=== PATIENT | female | born 1945 | race Caucasian/White ===

== ENCOUNTER → 2016-02-23 | Outpatient (CLI) | payer MEDICARE, OTHER ==
--- NOTE | 2016-02-23 10:28 | REPMRS ---
Patient History The patient states she had a clinical breast exam in 02/26 Patient is postmenopausal, has history of skin cancer at age 53, and is nulliparous. Family history of premenopausal breast cancer in maternal grandmother at age 50 or over and prostate cancer in brother at age 50 or over. Benign excisional biopsy of the left breast, 1999. Digital Woman Screen Mammo: February 23, 2016 - Exam #: [id number] Bilateral CC and MLO view(s) were taken. Technologist: Radha Montgomery, Technologist Prior study comparison: February 21, 2015, digital woman screen mammo performed at [facility]. March 04, 2014, digital woman screen mammo performed at [facility] [employer] [facility]. January 26, 2013, digital woman screen mammo performed at [facility] [employer] [facility]. FINDINGS: The breast tissue is heterogeneously dense. This may lower the sensitivity of mammography. There is a moderate amount of heterogeneously dense fibroglandular tissue which is fairly symmetric. There is no interval development of dominant mass, architectural distortion, or clustered microcalcification typical of malignancy. There has been no change in the appearance of the mammogram from the prior studies. ASSESSMENT: BI-RADS/ACR category 1 mammogram. Negative. Recommendation Routine screening mammogram of both breasts in 1 year (for women over age 40). This mammogram was interpreted with the aid of an FDA-approved computer-aided dectection system. Electronically Signed By: Anuj Nichols MD 02/23/16 [id number]
== END ==
LOC: M WHC 08:25
PROVIDERS: ATTEND Nurse Practitioner Family
DX: Z12.31 Encounter for screening mammogram for malignant neoplasm of breast (principal); Z78.0 Asymptomatic menopausal state

== ENCOUNTER → 2016-11-01 | Outpatient (REF) | payer MEDICARE, OTHER | LOC: M LAB REF 12:40 | PROVIDERS: ATTEND Nurse Practitioner Family | DX: R51 Headache (principal) ==

== ENCOUNTER → 2017-03-15 | Outpatient (CLI) | payer MEDICARE, OTHER | LOC: M WHC 10:57 | DX: Z12.31 Encounter for screening mammogram for malignant neoplasm of breast (principal); Z13.820 Encounter for screening for osteoporosis; M85.9 Disorder of bone density and structure, unspecified; Z78.0 Asymptomatic menopausal state | CPT/HCPCS: 77067 ==

== ENCOUNTER 2017-05-29 07:41 | Day surgery (SDC) | payer MEDICARE, OTHER ==
[2017-05-29] MEDS: NS 1,000 ML IV (08:29)
[2017-05-29] MEDS ORDERED: PROPOFOL 200 MG/20 ML VIAL As Ordered (08:55)
[2017-05-29] MEDS ORDERED: LIDOCAINE 2% INJ 100 MG/5 ML SDV (FOR ANES.) As Ordered (09:14)
== END 2017-05-29 10:12 | disposition home or self-care (01) ==
LOC: M OPP 07:41
DX: Z12.11 Encounter for screening for malignant neoplasm of colon (principal); K64.0 First degree hemorrhoids; K57.30 Diverticulosis of large intestine without perforation or abscess without bleeding; E03.9 Hypothyroidism, unspecified; Z78.0 Asymptomatic menopausal state; Z79.82 Long term (current) use of aspirin; Z79.899 Other long term (current) drug therapy; Z80.42 Family history of malignant neoplasm of prostate
CPT/HCPCS: G0121

== ENCOUNTER → 2018-03-24 | Outpatient (CLI) | payer MEDICARE, OTHER ==
[~2018-03-24] MED LIST: ASPI1TAB PO; LEVO100T5 PO
--- NOTE | 2018-03-24 12:12 | REPMRS ---
Patient History The patient states she had a clinical breast exam in 09/28 Patient is postmenopausal, has history of skin cancer at age 53, and is nulliparous. Family history of premenopausal breast cancer at age 50 or over in maternal grandmother, prostate cancer at age 50 or over in brother. Benign excisional biopsy of the left breast, 2018. Benign excisional biopsy of the left breast, 1999. 3D TOMOSYNTHESIS WAS PERFORMED. Digital Woman Screen Mammo: March 24, 2018 - Exam #: [id number] Bilateral CC and MLO view(s) were taken. Technologist: Radha Montgomery, Technologist Prior study comparison: March 15, 2017, digital woman screen mammo performed at [facility] [employer] [facility]. February 23, 2016, digital woman screen mammo performed at [facility] [employer] [facility]. FINDINGS: The breast tissue is heterogeneously dense. This may lower the sensitivity of mammography. There has been no change in the appearance of the mammogram from the prior studies. There is a moderate amount of residual fibroglandular tissue which is fairly symmetric. There is no interval development of dominant mass, areas of architectural distortion, or clustered microcalcification typical of malignancy. Assessment: BI-RADS/ACR category 1 mammogram. Negative Mammogram. Recommendation Routine screening mammogram in 1 year (for women over age 40). This mammogram was interpreted with the aid of an FDA-approved computer-aided dectection system. Electronically Signed By: Fredy Spencer MD 03/24/18 [id number]
== END ==
LOC: M WHC 11:01
PROVIDERS: ATTEND Nurse Practitioner Family
DX: Z12.31 Encounter for screening mammogram for malignant neoplasm of breast (principal); Z80.3 Family history of malignant neoplasm of breast; Z85.828 Personal history of other malignant neoplasm of skin

== ENCOUNTER 2019-01-26 14:19 | Inpatient (IN) | payer MEDICARE, OTHER ==
[~2019-01-26] VITALS: Ht 162.6 cm; Wt 67.0 kg
[~2019-01-26 14:19] MED LIST changes: -VIAC1CHW PO; -VITATAB26 PO
[2019-01-26] MEDS ORDERED: METOCLOPRAMIDE INJ 10MG/2ML VIAL (J2765) IV ONE (15:00)
[2019-01-26] MEDS ORDERED: NS 500 ML IV ONE (15:00)
[2019-01-26 15:19] LABS: HEMATOCRIT 46.6 % (36.0-47.0); HEMOGLOBIN 14.3 g/dl (12.0-15.5); MEAN CORPUSCULAR HEMOGLOBIN 26.7 pg (27.0-33.0); MEAN CORPUSCULAR HGB CONC 30.7 g/dl (32.0-36.5); MEAN CORPUSCULAR VOLUME 87.1 fl (80.0-96.0); PLATELET COUNT, AUTOMATED 518 10^3/uL (150-450); RED BLOOD COUNT 5.35 10^6/uL (4.00-5.40)
[2019-01-26] MEDS: GASTROGRAFIN SOLUTION 30ML PO SCH ×2 (15:21→16:06)
[2019-01-26 15:42] LABS: ALBUMIN 3.5 GM/DL (3.2-5.2); ALT/SGPT 15 U/L (12-78); BILIRUBIN,DIRECT 0.2 MG/DL (0.0-0.2); BILIRUBIN,TOTAL 0.6 MG/DL (0.2-1.0); CK-MB VALUE MASS 3.2 NG/ML (<3.6); CPK CREATINE PHOSPHOKINASE 97 U/L (26-192); LIPASE 65 U/L (73-393); TOTAL PROTEIN 7.4 GM/DL (6.4-8.2); TROPONIN I < 0.02 NG/ML (< 0.10)
[2019-01-26 16:00] LABS: LYMPHOCYTES 2 % (16-44); METAMYELOCYTES 1 % (0-0); MONOCYTES 7 % (0-5); NEUTROPHILS 70 % (28-66); PLATELET ESTIMATE INCREASED (NORMAL)
[2019-01-26] MEDS ORDERED: ISOVUE-370 76% 100ML VIAL (Q9967) As Ordered ONE (16:49)
[2019-01-26] MEDS ORDERED: PIPERACILLIN/TAZOBACTAM SOD 3.375 GM in D5W MINI-BAG PLUS 50 ML IV ONE (17:45)
--- NOTE | 2019-01-26 17:53 | REPVR ---
PROCEDURE INFORMATION: Exam: CT Abdomen And Pelvis With Contrast Exam date and time: 01/26/2019 2:47 PM Age: 73 years old Clinical history: Bloating; Additional info: Abdominal bloating; R/O obstruction TECHNIQUE: Imaging protocol: Computed tomography of the abdomen and pelvis with intravenous contrast. Radiation optimization: All CT scans at this facility use at least one of these dose optimization techniques: automated exposure control; mA and/or kV adjustment per patient size (includes targeted exams where dose is matched to clinical indication); or iterative reconstruction. Contrast material: Isovue 370; Contrast volume: 100 ml; Contrast route: IV; Other contrast: Route: Oral; COMPARISON: CR ABDOMEN 1 VIEW (KUB) 01/26/2019 1:43 PM FINDINGS: Mediastinum: A small sliding hiatal hernia is present above the level of the diaphragm. Liver: Nonspecific 8.8 mm LEFT lobe hepatic hypodensity. 5.8 mm RIGHT lobe hepatic probable cyst. Gallbladder and bile ducts: Normal. No calcified stones. No ductal dilation. Pancreas: Normal. No ductal dilation. Spleen: Normal. No splenomegaly. Adrenals: Normal. No mass. Kidneys and ureters: LEFT renal parapelvic cysts measuring up to 2 cm. Stomach and bowel: Moderate distal sigmoid and rectal wall thickening and pericolonic edema. Gaseous distention of the proximal sigmoid, and abdominal colon with increased intraluminal fluid of the ascending colon. Mild non-specific RIGHT pelvic small bowel wall thickening (series 202, images 57-29). Sigmoid colonic diverticula are present without evidence of diverticulitis. Appendix: No evidence of appendicitis. Intraperitoneal space: Unremarkable. No free air. No significant fluid collection. Vasculature: Moderate stenosis proximal SMA. Patent VISH. Moderate aortic atherosclerotic calcification without aneurysm. The iliac arteries show moderate bilateral atherosclerotic calcifications without evidence of aneurysm. Lymph nodes: Unremarkable. No enlarged lymph nodes. Bladder: Unremarkable as visualized. Reproductive: Thin-walled 5 cm LEFT adnexal cyst. Calcified RIGHT uterine leiomyomata. Bones/joints: L4-5 degenerative disc disease with mild spondylosis. LEFT lower lumbar facet primary osteoarthritis. Soft tissues: Unremarkable. IMPRESSION: 1. Moderate distal sigmoid and rectal wall thickening and pericolonic edema. The finding is consistent with nonspecific colitis. Clinical correlation to determine the specific etiology is recommended. 2. Gaseous distention of the proximal sigmoid, and abdominal colon with increased intraluminal fluid of the ascending colon. Functional colonic obstruction difficult to exclude. 3. Mild non-specific RIGHT pelvic small bowel wall thickening. Consider infectious/inflammatory and ischemic etiologies. 4. Diverticulosis. 5. LEFT adnexal cyst. Pelvic sonography recommended for further evaluation. 6. Calcified RIGHT uterine leiomyomata. 7. Nonspecific small LEFT lobe hepatic hypodensity. Comparison with prior studies recommended, if available. Otherwise followup may be helpful. 8. RIGHT lobe hepatic probable cyst. 9. Small hiatal hernia. 10. LEFT renal parapelvic cysts. Electronically signed by: Chico Brewster On 01/26/2019 17:52:37 PM
[2019-01-26] MEDS ORDERED: ONDANSETRON 4MG/2ML VIAL (J2405) IV ONE (19:15)
[2019-01-26] MEDS ORDERED: VIAC1CHW PO (23:43)
[2019-01-26] MEDS ORDERED: VITATAB26 PO (23:43)
[2019-01-26] MEDS ORDERED: GLUCOSE 4 GM CHEW TABLET PO PRN (23:45)
[2019-01-26] MEDS ORDERED: GLUCAGON FOR INJ 1 MG VIAL (J1610) SC PRN (23:45)
[2019-01-26] MEDS ORDERED: DEXTROSE 50% 50 ML SYRINGE IV PRN (23:45)
[2019-01-27 00:31] VITALS: BP 120/76
[2019-01-27 00:32] LABS: BLOOD UREA NITROGEN 31 MG/DL (7-18); C REACTIVE PROTEIN QUANTITATIV 5.86 MG/DL (0.00-0.30); CALCIUM LEVEL 9.2 MG/DL (8.8-10.2); CARBON DIOXIDE LEVEL 21 MEQ/L (21-32); CHLORIDE LEVEL 99 MEQ/L (98-107); CREATININE FOR GFR 1.33 MG/DL (0.55-1.30); GLOMERULAR FILTRATION RATE 41.4 (>39); GLUCOSE, FASTING 179 MG/DL (70-100); POTASSIUM SERUM 4.1 MEQ/L (3.5-5.1); SODIUM LEVEL 136 MEQ/L (136-145)
--- NOTE | 2019-01-27 01:00 | HPEPDOC ---
[facility] Medical History & Physical Date of Admission Jan 26, 2019 Date of Service: Jan 26, 2019 Primary Care Physician: Jennie Haider Attending Physician: MARLA ESPARZA MD History and Physical CHIEF COMPLAINT: Abdominal pain/distention HISTORY OF PRESENT ILLNESS: Patient is a 73-year-old female with past medical history significant only for hypothyroidism who presented to [facility] emergency department with a complaint of abdominal pain and distention. She states that on Saturday of last week she had developed some abdominal pain and a "gassy" feeling in her stomach. At that she did not do much and felt that the pain would go away on its own. However, on Saturday she noticed increasing pain in her abdomen. She stated due to the pain she was having a decrease in her appetite. On Saturday the patient stated that she developed some nausea as well as worsening of her abdominal pain. She states that the pain continued to get worse and she was unable to eat anything. She admits to developing vomiting and was unable to hold down any food or water. Patient presented to the urgent care due to the pain and was instructed to go to the emergency department. She admitted to difficulty with bowel movements since Saturday and stated that her bowel movements have mostly been liquid. She denies any blood in her stool. The patient does admit to two other episodes of abdominal pain and distension. Her first episode was 6-8 weeks ago and lasted a few days. She states that she developed pain some nausea at the time. This lasted a few days before completely resolving. Her second episode was 3-4 weeks ago and once again resolved on its own. She states that this time her pain is worse and has lasted longer than usual which has prompted her to find out what is wrong. In the emergency room, the patient was found to be vitally stable. She received an abdominal/pelvis CT which revealed "moderate distal sigmoid and rectal wall thickening and pericolonic edema; gaseous distention of the proximal sigmoid, and abdominal colon with increased intraluminal fluid of the ascending colon". The patient has a mild lactic acidosis of 3.4 and was given a 500ml NS bolus with a repeat lactic acid of 1.5. Hospitalist service was contacted for further evaluation and management of the patient REVIEW OF SYSTEMS: CONSTITUTIONAL: Denies fevers, chills, nightsweats, unintentional weight loss or weight gain. Admits to a decreased appetite. HEENT: Denies changes in vision. Denies cough, denies difficulty swallowing or choking. Denies pain with swallowing. Denies any neck swelling CARDIOVASCULAR:. Denies chest pain, palpitations or feelings of heart racing. Denies any swelling in the legs. Denies shortness of breath while lying flat. Denies any shortness of breath or chest pain with exertion.. RESPIRATORY: Denies shortness of breath, denies cough. Denies wheezing, denies sputum production. GASTROINTESTINAL: Admits to abdominal pain and distention. Admits to watery bowel movements and constipation. Denies any blood in stool. Admits to nausea and vomiting. GENITOURINARY: Denies increased frequency, urgency or dysuria. SKIN:. Denies any skin lesions or ulcerations. Denies any pruritus. MUSCULOSKELETAL:. Denies any muscle pain or weakness. NEUROLOGICAL:. Denies any changes or gait, speech or vision. PSYCHIATRIC:. Denies any feelings of depression or anxiety. ENDOCRINE:. Denies any cold intolerance or heat intolerance. Denies any history of diabetes. Admits to a history of hypothyroidism HEMATOLOGIC/LYMPHATIC:. Denies any history of easy bruising or bleeding. PAST MEDICAL HISTORY: 1. Hypothyroidism PAST SURGICAL HISTORY: 1. Appendectomy 2. Fertility procedure 3. Left foot bunion removal SOCIAL HISTORY: Patient is and lives at home with her . She is a nonsmoker and denies any tobacco use now or in the past. She states she has a glass of wine every night. She denies any history of IV or illicit drug use. She admits to recent travel to [facility] where she stayed for 3 weeks. FAMILY HISTORY: Patients father and mother have . Her mother at the ago of 91 from natural causes. She has two brothers who carry the diagnosis of diabetes mellitus type 2 and hypertension ALLERGIES: Please see below. HOME MEDICATIONS: Please see below. PHYSICAL EXAMINATION: VITAL SIGNS: Temperature 97.2, pulse 95, respiratory rate 18, blood pressure 125/59, pulse oximetry 98% on room air. GENERAL APPEARANCE: Patient is awake, alert and oriented. She does not appear in acute distress. She is lying in bed comfortably. She is conversive, although hard of hearing. HEENT: Atraumatic, normocephalic. Eyes are nonicteric. Trachea is midline. Dentition is fair. Mucous membranes are pink and slightly dry. No palpable cervical, supraclavicular or axillary lymphadenopathy. CARDIOVASCULAR:. There is normal S1, S2, slightly tachycardic rate with a regular rhythm. No clicks, rubs or murmurs auscultated. . There is no displace ment of the PMI., No jugular venous distention noted. LUNGS: Patient has clear vesicular breath sounds bilaterally with good respiratory effort. There are no wheezes, rhonchi or rales. There is symmetric chest expansion ABDOMEN: Patient's abdomen is soft. There is mild tenderness in the left lower q uadrant. There is no rebound tenderness or guarding. There is no bruising or palpable masses. Patient has hyperactive bowel sounds. MUSCULOSKELETAL: 5 out of 5 muscle strength in the upper and lower extremities bilaterally. EXTREMITIES: No edema, 2+ posterior tibial and radial pulses bilaterally. NEUROLOGICAL:. No focal neurological deficits. PSYCHIATRIC:. Mood and affect appear appropriate. LABORATORY DATA: See below. IMAGING: "Exam: CT Abdomen And Pelvis With Contrast Exam date and time: 01/26/2019 2:47 PM Age: 73 years old Clinical history: Bloating; Additional info: Abdominal bloating; R/O obstruction... COMPARISON: CR ABDOMEN 1 VIEW (KUB) 01/26/2019 1:43 PM FINDINGS: Mediastinum: A small sliding hiatal hernia is present above the level of the diaphragm. Liver: Nonspecific 8.8 mm LEFT lobe hepatic hypodensity. 5.8 mm RIGHT lobe hepatic probable cyst. Gallbladder and bile ducts: Normal. No calcified stones. No ductal dilation. Pancreas: Normal. No ductal dilation. Spleen: Normal. No splenomegaly. Adrenals: Normal. No mass. Kidneys and ureters: LEFT renal parapelvic cysts measuring up to 2 cm. Stomach and bowel: Moderate distal sigmoid and rectal wall thickening and pericolonic edema. Gaseous distention of the proximal sigmoid, and abdominal colon with increased intraluminal fluid of the ascending colon. Mild non- specific RIGHT pelvic small bowel wall thickening (series 202, images 57-29). Sigmoid colonic diverticula are present without evidence of diverticulitis. Appendix: No evidence of appendicitis. Intraperitoneal space: Unremarkable. No free air. No significant fluid collection. Vasculature: Moderate stenosis proximal SMA. Patent VISH. Moderate aortic atherosclerotic calcification without aneurysm. The iliac arteries show moderate bilateral atherosclerotic calcifications without evidence of aneurysm. Lymph nodes: Unremarkable. No enlarged lymph nodes. Bladder: Unremarkable as visualized. Reproductive: Thin-walled 5 cm LEFT adnexal cyst. Calcified RIGHT uterine leiomyomata. Bones/joints: L4-5 degenerative disc disease with mild spondylosis. LEFT lower lumbar facet primary osteoarthritis. Soft tissues: Unremarkable. IMPRESSION: 1. Moderate distal sigmoid and rectal wall thickening and pericolonic edema. The finding is consistent with nonspecific colitis. Clinical correlation to determine the specific etiology is recommended. 2. Gaseous distention of the proximal sigmoid, and abdominal colon with increased intraluminal fluid of the ascending colon. Functional colonic obstruction difficult to exclude. 3. Mild non-specific RIGHT pelvic small bowel wall thickening. Consider infectious/inflammatory and ischemic etiologies. 4. Diverticulosis. 5. LEFT adnexal cyst. Pelvic sonography recommended for further evaluation. 6. Calcified RIGHT uterine leiomyomata. 7. Nonspecific small LEFT lobe hepatic hypodensity. Comparison with prior studies recommended, if available. Otherwise followup may be helpful. 8. RIGHT lobe hepatic probable cyst. 9. Small hiatal hernia. 10. LEFT renal parapelvic cysts. Electronically signed by: Chico Brewster On 01/26/2019 17:52:37 PM" MICROBIOLOGY: Please see below. ASSESSMENT: Patient is a 73-year-old female who presented to [facility] with a complaint of abdominal pain and distention with worsening abdominal pain, nausea and vomiting over the past few days. Patient received an abdominal pelvis CT which demonstrated likely colonic obstruction. PLAN: 1. Large bowel obstruction\\colitis -Patient presented with abdominal pain, distention, and decrease in bowel movements. She is currently having bowel movements and therefore there is no need for emergent surgical intervention -Surgical consultation has been placed. Consultation is greatly appreciated -Patient will be kept nothing by mouth -Maintenance fluids with D5 0.45NS 80 ml/hr -FS q6H with Sliding scale coverage -CRP elevated 5.86 -BMP daily to monitor electrolytes -Mg pending -Phosphorous level pending 2. Lactic Acidosis -Initial Lactic Acid of 3.9. Patient received 500ml NS bolus in ED. Repeat lactic acid 1.5. Likely secondary to bowel obstruction -Patient received IV Zosyn in ER. Infection is less likely. Patient is afebrile without an elevated white blood cell count. -Currently receiving IVF D5 0.45NS 80mls/hr 3. Thrombocytosis -Patient has platelet count of 518. She is on aspirin 81mg as an outpatient. Currently holding due to possibility of surgery -Suggest further workup outpatient for thrombocytosis 4. Decreased GFR/ABNER -Patient has a decreased GFR and elevated Cr. No records immediately available to assess whether this is chronic or acute. Will avoid nephrotoxic agents. Patient has reported decreased water intake as well as vomiting. -Likely prerenal. Will calculate FeNa. Urine Cr and Urine Na pending -Will continue to monitor Cr. -Will continue IVF 5. Hyperglycemia -Patient has a BGL of 179. Will check an A1C. 6. Hypothyroidism -Patient is currently NPO -Levothyroxine 100mcg currently held 7. Elevated Alkaline Phosphatase -Patient has Normal LFTs with an isolated elevation in Alk Phos. Could be secondary to age. May warrant further investigation outpatient for paget's disease. 8. DVT Prophylaxis -Boy Score of 1 for age greater than 70 only. -TEDS and sequentials Disposition: likely home after more than 2 midnight's stay Vital Signs Vital Signs Date Time Temp Pulse Resp B/P (MAP) Pulse Ox O2 Delivery O2 Flow Rate FiO2 01/26/19 22:45 95 18 125/59 (81) 98 Room Air 01/26/19 14:20 97.2 Laboratory Data Labs 24H Laboratory Tests 2 01/26/19 14:59: Lymphocytes # (Auto) , Nucleated Red Blood Cells % (auto) 0.0, Neutrophils 70H, Band Neutrophils 20H, Lymphocytes (Manual) 2L, Monocytes (Manual) 7H, Metamyelocytes 1H, Platelet Estimate INCREASED, Lactic Acid Level 3.9*H, Total Bilirubin 0.6, Direct Bilirubin 0.2, Aspartate Amino Transf (AST/SGOT) 21, Alanine Aminotransferase (ALT/SGPT) 15, Alkaline Phosphatase 142H, Total Creatine Kinase 97, Creatine Kinase MB 3.2, Creatine Kinase MB Relative Index 3.30, Troponin I < 0.02, Total Protein 7.4, Albumin 3.5, Albumin/Globulin Ratio 0.90L, Lipase 65L 01/26/19 15:03: POC Glucose (Misc Panel) 189H, POC Sodium (Misc Panel) 134L, POC Potassium (Misc Panel) 3.8, POC Chloride (Misc Panel) 100, POC Total CO2 (Misc Panel) 23.0, POC Blood Urea Nitrogen (Misc Panel 30H, POC Ionized Calcium (Misc Panel) 4.4L, POC Creatinine (Misc Panel) 1.1, POC Hematocrit (Misc Panel) 46.0 01/26/19 19:17: Lactic Acid Followup at 4 Hours 1.5 CBC/BMP Laboratory Tests 01/26/19 14:59 Home Medications Scheduled Aspirin (Aspirin EC) 81 Mg Tab, 81 MG PO DAILY Calcium Carb/Vitamin D3/Vit K1 (Viactiv 650 mg-12.5 Mcg Chew) 1 Each Tab.chew, 3 CHEW PO DAILY Cholecalciferol (Vitamin D3) (Vitamin D3) 25 Mcg Tablet, 25 MCG PO DAILY Levothyroxine Sodium (Levothyroxine Sodium) 100 Mcg Tab, 100 MCG PO DAILY Allergies Coded Allergies: No Known Allergies (Unverified , 05/23/17) A-FIB/CHADSVASC A-FIB History Current/History of A-Fib/PAF?: No GME ATTESTATION GME ATTESTATION My faculty preceptor for this patient encounter was physically present during the encounter and was fully available. All aspects of the patient interview, examination, medical decision making process, and medical care plan development were reviewed and approved by the faculty preceptor. The faculty preceptor is aware and concurs with the plan as stated in the body of this note and will attest to such by his/her cosignature. ATTENDING NOTE I examined at 11:50PM, discussed and reviewed the case with and agree with the findings as documented. JUHI BEEBE DO Jan 27, 2019 00:59 MARLA ESPARZA MD Jan 27, 2019 01:43
[2019-01-27] MEDS: D5W/0.45% SODIUM CHLORIDE 1,000 ML IV SCH ×3 (01:07→22:22)
[2019-01-27] MEDS: HumaLOG INSULIN (NovoLOG) PER UNIT SC SCH ×4 (01:08→17:12)
[2019-01-27 02:11] LABS: HEMOGLOBIN A1c 5.1 %
[2019-01-27 02:13] LABS: MAGNESIUM LEVEL 1.8 MG/DL (1.8-2.4); PHOSPHORUS LEVEL 3.1 MG/DL (2.5-4.9)
[2019-01-27] MEDS: ONDANSETRON 4MG/2ML VIAL (J2405) IV PRN (05:33)
[2019-01-27 06:00] VITALS: BP 119/71
[2019-01-27 06:27] LABS: MEAN CORPUSCULAR HEMOGLOBIN 27.7 pg (27.0-33.0); MEAN CORPUSCULAR HGB CONC 32.9 g/dl (32.0-36.5); MEAN CORPUSCULAR VOLUME 84.2 fl (80.0-96.0); RED BLOOD COUNT 4.04 10^6/uL (4.00-5.40); WHITE BLOOD COUNT 2.9 10^3/uL (4.0-10.0)
[2019-01-27] MEDS ORDERED: FLEET ENEMA PR ONE (06:45)
[2019-01-27 06:49] LABS: BLOOD UREA NITROGEN 26 MG/DL (7-18); CARBON DIOXIDE LEVEL 24 MEQ/L (21-32); CHLORIDE LEVEL 105 MEQ/L (98-107); CREATININE FOR GFR 0.92 MG/DL (0.55-1.30); GLOMERULAR FILTRATION RATE > 60.0 (>39); GLUCOSE, FASTING 125 MG/DL (70-100); SODIUM LEVEL 137 MEQ/L (136-145)
[2019-01-27 06:56] LABS: HEMOGLOBIN 11.2 g/dl (12.0-15.5); PLATELET COUNT, AUTOMATED 396 10^3/uL (150-450)
[2019-01-27] MEDS ORDERED: POTASSIUM CHLORIDE 10 MEQ SR TABLET PO ONE (08:00)
[2019-01-27] MEDS ORDERED: LIQUID POLIBAR PLUS 105% w/v 1900ML BTL As Ordered ONE (08:04)
--- NOTE | 2019-01-27 12:28 | CR.PDOC ---
General Surgery Consultation Date of Consultation 01/27/19 History and Physical CONSULT REPORT FOR: hospitalist service REASON FOR CONSULTATION: possible colon obstruction, abdominal distention HISTORY OF PRESENT ILLNESS: Patient is a 73 Female who presented herself to the ED after being seen at an urgent care setting on 01/26/2019. She presents with a complaint of a one week history of abdominal distention, not being able to have a regular bowel movement, abdominal cramping. She had a good amount of nasuea and multiple episodes of vomiting on Saturday and saturday (6 on saturday). She is also having loose to watery bowel movements and so far has had 2 liquid bowel movements today and one since being in the emergency room along with some flatus which made her feel better. She denies any accompanying fever, chills, left lower quadrant pain or discomfort. She denies any prior episodes of diverticulitis. She has had 2 other similar episodes since September which would resolve itself in a few days at most a week. She has been seen by her primary doctor and was treated with antibiotics for possible colitis with the presentation of diarrhea and abdominal distentiion. She denies any abnormal weight loss. She has had colonoscopies done previously and latest is in 2018 with findings of diverticulosis PAST MEDICAL HISTORY: 1. Hypothyroidism PAST SURGICAL HISTORY: 1. Appendectomy 2. Fertility procedure 3. Left foot bunion removal SOCIAL HISTORY: Patient is and lives at home with her . She is a nonsmoker and denies any tobacco use now or in the past. She states she has a glass of wine every night. She denies any history of IV or illicit drug use. She admits to recent travel to [facility] where she stayed for 3 weeks. FAMILY HISTORY: Patients father and mother have . Her mother at the ago of 91 from natural causes. She has two brothers who carry the diagnosis of diabetes mellitus type 2 and hypertension ALLERGIES: Please see below. HOME MEDICATIONS: Please see below. REVIEW OF SYSTEMS: GENERAL: [Denies chills, reports weight gain, reports feeling febrile yesterday]. HEENT: [Denies blurred vision and double vision. Denies ear symptoms. Denies hoarseness]. NECK: Denies any neck pain]. CARDIOVASCULAR: [Denies chest pain and palpitations]. MUSCULOSKELETAL: [Denies arthralgias, back pain and thrombophlebitis]. SKIN: [Denies rash]. NEUROLOGIC: [Denies headache, stroke and transient ischemic attack]. PSYCHIATRIC: [Denies anxiety and depression]. ENDOCRINE: [Denies thyroid disease]. HEMATOLOGY/ONCOLOGY: [Denies bleeding or clotting disorder]. HEART: [Denies any chest pains, palpitations, paroxysmal dyspnea, orthopnea]. PULMONARY: [Denies chronic cough, dyspnea and wheezing]. GASTROINTESTINAL: [Denies rectal bleeding, family history of colon cancer, constipation, diarrhea, dysphagia, heartburn and jaundice]. GENITOURINARY: [Denies dysuria, frequency, hematuria and nocturia]. ENDOCRINE: [Denies polydipsia, polyphagia, polyuria, heat or cold intolerance]. INFECTIOUS: [Denies any recent upper respiratory tract infection, UTI, need for use of antibiotics]. NUTRITION: [Reports good appetite]. PHYSICAL EXAMINATION: VITALS SIGNS: Please see below. GENERAL APPEARANCE:[Patient seen, laying in bed, awake, alert, and oriented. Comfortable, in no acute distress]. SKIN: [Warm and moist]. HEENT: [Normocephalic, atraumatic. [place] palpebral conjunctiva, anicteric sclerae. Lips and mucosa appear moist]. NECK: [Supple, no thyromegaly. No obvious jugular venous distention]. LUNGS: [Clear to auscultation bilaterally. No wheezing appreciated]. HEART: [No chest wall abnormalities. Regular rate and rhythm with no murmurs appreciated]. ABDOMEN: Her abdomen appears slightly rounded, prominent and softly distended. She reports this was much more distended prior to her having the 2 liquid bms. No abdominal scars or noticeable herniations. No definite area of tenderness though she does report some mild discomfort on deep palpation over the suprapubic and left lower quadrant area. EXTREMITIES: [Extremities have no deformities. No edema identified] ANCILLARIES: . LABORATORY DATA: Please see below. IMAGING STUDIES: . IMPRESSION AND PLAN: partial colon obstruction seems to be at the level of the rectosigmoid. CT is reporting some "edema" of the hendricks of rectum and sigmoid. She has had prior colonoscopy documenting diverticulosis. This could most likely be secondary to diverticulosis and the accompanying architectural changes/hypertrophy and luminal narrowing from chronic diverticulosis. Does not seem to be an active acute diverticulitis. I would like to get a barium enema to delineate further the area of narrowing and would wait for the results of this. She is not showing any signs of toxicity/sepsis?systemic inflammatory response and no signs of peritonitis/perforation; though her cecum appears quite distended which may point out to the chronicity of the obstructive process. Vital Signs Vital Signs Date Time Temp Pulse Resp B/P (MAP) Pulse Ox O2 Delivery O2 Flow Rate FiO2 01/27/19 06:00 98.5 98 17 119/71 (87) 98 Room Air I&Os I&O- Last 24 Hours up to 6 AM 01/27/19 06:00 Intake Total 400 ml Balance 400 ml Laboratory Data Labs 24H Laboratory Tests 2 01/26/19 14:59: Lymphocytes # (Auto) , Nucleated Red Blood Cells % (auto) 0.0, Neutrophils 70H, Band Neutrophils 20H, Lymphocytes (Manual) 2L, Monocytes (Manual) 7H, Metamyelocytes 1H, Platelet Estimate INCREASED, Anion Gap 16, Glomerular Filtration Rate 41.4, Lactic Acid Level 3.9*H, Calcium Level 9.2, Total Bilirubin 0.6, Direct Bilirubin 0.2, Aspartate Amino Transf (AST/SGOT) 21, Alanine Aminotransferase (ALT/SGPT) 15, Alkaline Phosphatase 142H, Total Creatine Kinase 97, Creatine Kinase MB 3.2, Creatine Kinase MB Relative Index 3.30, Troponin I < 0.02, C-Reactive Protein, Quantitative 5.86H, Total Protein 7.4, Albumin 3.5, Albumin/Globulin Ratio 0.90L, Lipase 65L 01/26/19 15:03: POC Glucose (Misc Panel) 189H, POC Sodium (Misc Panel) 134L, POC Potassium (Misc Panel) 3.8, POC Chloride (Misc Panel) 100, POC Total CO2 (Misc Panel) 23.0, POC Blood Urea Nitrogen (Misc Panel 30H, POC Ionized Calcium (Misc Panel) 4.4L, POC Creatinine (Misc Panel) 1.1, POC Hematocrit (Misc Panel) 46.0 01/26/19 19:17: Lactic Acid Followup at 4 Hours 1.5 01/27/19 00:48: Bedside Glucose (Misc Panel) 125H 01/27/19 01:43: Estimated Mean Plasma Glucose 100, Hemoglobin A1c 5.1, Phosphorus Level 3.1, Magnesium Level 1.8 01/27/19 05:17: Bedside Glucose (Misc Panel) 137H 01/27/19 05:51: Nucleated Red Blood Cells % (auto) 0.0, Anion Gap 8, Glomerular Filtration Rate > 60.0, Calcium Level 8.0L 01/27/19 11:57: Bedside Glucose (Misc Panel) 110 CBC/BMP Laboratory Tests 01/26/19 14:59 01/27/19 05:51 Home Medications Scheduled Aspirin (Aspirin EC) 81 Mg Tab, 81 MG PO DAILY, (Reported) Calcium Carb/Vitamin D3/Vit K1 (Viactiv 650 mg-12.5 Mcg Chew) 1 Each Tab.chew, 3 CHEW PO DAILY, (Reported) Cholecalciferol (Vitamin D3) (Vitamin D3) 25 Mcg Tablet, 25 MCG PO DAILY, (Reported) Levothyroxine Sodium (Levothyroxine Sodium) 100 Mcg Tab, 100 MCG PO DAILY, (Reported) Allergies Coded Allergies: No Known Allergies (Unverified , 05/23/17) MONROE BURGER MD Jan 27, 2019 12:28
--- NOTE | 2019-01-27 13:55 | IPNPDOC ---
Text Note Date of Service The patient was seen on 01/27/19. NOTE SUBJECTIVE: Pt continues to have loose, watery stools without hematochezia. Pt denies any changes in urinary habits. Pt states that her nausea has resolved, and that she has no abdominal pain at this time. She believes her abdomen is softer than it was yesterday. Overall, pt states that she has been feeling some improvement in her condition. OBJECTIVE: VITAL SIGNS: Please see below. GENERAL: Pt appears stated age and is lying comfortably in bed in no acute distress. HEENT: Normocephalic, atraumatic. CARDIOVASCULAR: Regular rate and rhythm. No murmurs, rubs, or gallops. LUNGS: Clear to auscultation b/l. No wheezes, rales, or rhonchi. ABDOMEN: No bruising, bumps, or rashes. Bowel sounds present in all 4 quadrants. Mild epigastric tenderness; otherwise no tenderness in all 4 quadrants. No guarding, rebound, or rigidity on palpation. Tympanic to percussion in all 4 q uadrants. SKIN: [place], warm, dry. NEURO: Patient has baseline mild hearing loss. PSYCH: Alert and oriented x3. Pt is pleasant and cooperative. She answers questions appropriately. Affect is full. IMAGING: - Barium enema performed this morning - report pending. ASSESSMENT: Pt is a 73 y/o female with a history of hypothyroidism who presented to the emergency department for abdominal pain and distension, was admitted to the hospital for evaluation and workup of a large bowel obstruction, and is being treated with bowel rest. PLAN: 1. Large bowel obstruction - Fleet enema performed this morning. - Barium enema performed this morning, please see above. - Surgery consultation by Gerardo Gordon MD was performed and appreciated. - Continue NPO status. - Continue maintenance fluids. - Continue daily BMPs for electrolyte monitoring. - Magnesium level returned 1.8 and phosphorus level returned 3.1. - Continue to monitor bowel function and resolution of obstruction. 2. Lactic acidosis - Likely secondary to large bowel obstruction. Pt is afebrile with no elevated white count. - Continue IV fluids. 3. Thrombocytosis - Aspirin held in case of possible surgery. - Will recommend outpatient workup. 4. Decreased GFR/ABNER - GFR and creatinine both improved to within normal limits this morning. - Urine creatinine & sodium pending - Avoid nephrotoxic agents. - Monitor creatinine. - Continue IV fluids. 5. Hyperglycemia - Most recent blood glucose 125. A1C was 5.1. - Continue glucose finger sticks and insulin sliding scale. 6. Hypothyroidism - Holding levothyroxine due to NPO status. 7. Elevated alkaline phosphatase - Isolated elevation. Will recommend outpatient workup. 8. DVT prophylaxis - TEDS and sequentials DISPOSITION: Discharge pending resolution of obstruction. VS,Fishbone, I+O VS, Fishbone, I+O Laboratory Tests 01/26/19 14:59 01/27/19 05:51 Vital Signs Date Time Temp Pulse Resp B/P (MAP) Pulse Ox O2 Delivery O2 Flow Rate FiO2 01/27/19 06:00 98.5 98 17 119/71 (87) 98 Room Air I&O- Last 24 Hours up to 6 AM 01/27/19 06:00 Intake Total 400 ml Balance 400 ml GME ATTESTATION GME ATTESTATION My faculty preceptor for this patient encounter was physically present during the encounter and was fully available. All aspects of the patient interview, examination, medical decision making process, and medical care plan development were reviewed and approved by the faculty preceptor. The faculty preceptor is aware and concurs with the plan as stated in the body of this note and will attest to such by his/her cosignature. GME ATTESTATION GME ATTESTATION My faculty preceptor for this patient encounter was physically present during the encounter and was fully available. All aspects of the patient interview, examination, medical decision making process, and medical care plan development were reviewed and approved by the faculty preceptor. The faculty preceptor is aware and concurs with the plan as stated in the body of this note and will attest to such by his/her cosignature. ATTENDING NOTE Patient was seen and examined by me this morning with the residents. Agree with the above assessment and plan SHERRI MOORE-III Jan 27, 2019 09:32 SYLWIA MURGUIA MD Jan 28, 2019 08:51
[2019-01-27 14:00] VITALS: BP 122/70
[2019-01-27 22:00] VITALS: BP 120/71
[2019-01-28] MEDS: HumaLOG INSULIN (NovoLOG) PER UNIT SC SCH ×2 (05:52)
[2019-01-28 05:59] LABS: HEMATOCRIT 35.4 % (36.0-47.0); MEAN CORPUSCULAR HEMOGLOBIN 26.9 pg (27.0-33.0); MEAN CORPUSCULAR HGB CONC 31.1 g/dl (32.0-36.5); MEAN CORPUSCULAR VOLUME 86.6 fl (80.0-96.0); RED BLOOD COUNT 4.09 10^6/uL (4.00-5.40)
[2019-01-28 06:00] VITALS: BP 121/78
[2019-01-28 06:00] LABS: PLATELET COUNT, AUTOMATED 376 10^3/uL (150-450)
[2019-01-28 06:24] LABS: BLOOD UREA NITROGEN 14 MG/DL (7-18); CARBON DIOXIDE LEVEL 26 MEQ/L (21-32); CHLORIDE LEVEL 107 MEQ/L (98-107); GLOMERULAR FILTRATION RATE > 60.0 (>39); GLUCOSE, FASTING 97 MG/DL (70-100); POTASSIUM SERUM 3.1 MEQ/L (3.5-5.1); SODIUM LEVEL 139 MEQ/L (136-145)
[2019-01-28] MEDS: ONDANSETRON 4MG/2ML VIAL (J2405) IV PRN ×2 (07:45→17:22)
[2019-01-28] MEDS ORDERED: POTASSIUM CHLORIDE 10 MEQ SR TABLET PO ONE ×2 (08:15→12:00)
[2019-01-28] MEDS: LEVOTHYROXINE 100MCG TABLET (0.1MG) PO SCH (10:26)
[2019-01-28] MEDS: D5W/0.45% SODIUM CHLORIDE 1,000 ML IV SCH (10:27)
--- NOTE | 2019-01-28 11:59 | IPNPDOC ---
Text Note Date of Service The patient was seen on 01/28/19. NOTE SUBJECTIVE: This is hospital day 3. Pt continues to have loose, watery stools without hematochezia. Pt denies any changes in urinary habits, nausea, and abdominal pain. Overall, pt states that she feels the same as yesterday. Pt did complain of arm swelling, itching, and warmth of the right forearm distal to her IV site last night. These symptoms have spontaneously resolved. Pt reports taking several walks through the halls during her stay. OBJECTIVE: VITAL SIGNS: Please see below. GENERAL: Pt appears stated age and is lying comfortably in bed in no acute distress. HEENT: Normocephalic, atraumatic. CARDIOVASCULAR: Regular rate and rhythm. No murmurs, rubs, or gallops. LUNGS: Clear to auscultation b/l. No wheezes, rales, or rhonchi. ABDOMEN: No bruising, bumps, or rashes. Bowel sounds present in all 4 quadrants. Mild suprapubic tenderness; otherwise no tenderness in all 4 quadrants. No guarding, rebound, or rigidity on palpation. Tympanic to percussion in all 4 quadrants. No rigidity. EXTREMITIES: Upper extremities showed no bruising, bumps, rashes, warmth, sw elling b/l. SKIN: [place], warm, dry. NEURO: Patient has baseline mild hearing loss. PSYCH: Alert and oriented x3. Pt is pleasant and cooperative. She answers questions appropriately. Affect is full. LAB: -Potassium low today at 3.0. IMAGING: - Barium enema performed yesterday - report pending. ASSESSMENT: Pt is a 73 y/o female with a history of hypothyroidism who presented to the emergency department for abdominal pain and distension, was admitted to the hospital for evaluation and workup of a large bowel obstruction, and is being treated with bowel rest. PLAN: 1. Large bowel obstruction - Waiting for radiologist read of barium enema. - Surgery consultation by Gerardo Gordon MD was performed and appreciated. - Upgrade diet to soft. Pt has been advised to alert staff in case of nausea or abdominal pain. - Decrease IV fluids. - Supplement potassium with 2x 40mg PO potassium chloride. Follow with magnesium supplementation. Continue daily BMPs for electrolyte monitoring and recheck m agnesium level tomorrow. - Continue frequent ambulation. - Continue to monitor bowel function and resolution of obstruction. 2. Lactic acidosis - Likely secondary to large bowel obstruction. Pt is afebrile with no elevated white count. - Continue IV fluids. 3. Thrombocytosis - Aspirin held in case of possible surgery. - Platelet count returned to within normal limits yesterday. Platelet count re turned 376 today. - Will recommend outpatient monitoring. 4. Decreased GFR/ABNER - GFR and creatinine continue to remain within normal limits. - Urine creatinine & sodium returned. Calculated FENa: 0%. - Avoid nephrotoxic agents. - Continue to monitor creatinine. - Continue IV fluids. 5. Hyperglycemia - Most recent blood glucose 100. A1C was 5.1. - Continue glucose finger sticks and insulin sliding scale. 6. Hypothyroidism - Resume home levothyroxine. 7. Elevated alkaline phosphatase - Isolated elevation. Will recommend outpatient workup. 8. DVT prophylaxis - TEDS and sequentials DISPOSITION: Discharge pending resolution of obstruction. VS,Fishbone, I+O VS, Fishbone, I+O Laboratory Tests 01/28/19 05:46 Vital Signs Date Time Temp Pulse Resp B/P (MAP) Pulse Ox O2 Delivery O2 Flow Rate FiO2 01/28/19 06:00 98.7 94 17 121/78 (92) 97 Room Air I&O- Last 24 Hours up to 6 AM 01/28/19 06:00 Intake Total 960 ml Output Total 125 ml Balance 835 ml GME ATTESTATION GME ATTESTATION My faculty preceptor for this patient encounter was physically present during t he encounter and was fully available. All aspects of the patient interview, examination, medical decision making process, and medical care plan development were reviewed and approved by the faculty preceptor. The faculty preceptor is aware and concurs with the plan as stated in the body of this note and will attest to such by his/her cosignature. GME ATTESTATION GME ATTESTATION My faculty preceptor for this patient encounter was physically present during the encounter and was fully available. All aspects of the patient interview, examination, medical decision making process, and medical care plan development were reviewed and approved by the faculty preceptor. The faculty preceptor is aware and concurs with the plan as stated in the body of this note and will attest to such by his/her cosignature. ATTENDING NOTE Patient was seen and examined by me this morning with the residents. Agree with the above assessment and plan SHERRI MOORE OMS-III Jan 28, 2019 11:07 SYLWIA MURGUIA MD Jan 29, 2019 13:37
[2019-01-28] MEDS ORDERED: HumaLOG INSULIN (NovoLOG) PER UNIT SC SCH ×2 (12:00→21:00)
[2019-01-28] MEDS ORDERED: MAG SULF 1GM/100ML (MAG RUN) 1 GM in IV 1 EA IV ONE (12:00)
[2019-01-28 14:00] VITALS: BP 120/69
--- NOTE | 2019-01-28 17:53 | REP ---
Examination Requested: Barium enema Reason For Exam: Rule out distal colon obstruction The procedure was performed by FLORIN Feliciano, under the direct supervision of Dr. Nichols. The images were reviewed with Dr. Nichols. The veterinarian assistant film shows no organomegaly, or pathological masses. The intestinal gas pattern is unremarkable. Liquid barium and air were instilled into the colon and retrograde flow of the barium. There is sigmoid diverticulosis. Some luminal narrowing is visualized in the sigmoid colon, with no evidence of on obstruction. Impression: 1. Sigmoid diverticulosis with some luminal narrowing, with no evidence of an obstruction. 0.2 minutes of fluoroscopy time was utilized for this procedure. Some fluoroscopic images are performed with last image hold technology. These images require no additional radiation. Reviewed by FLORIN Damon 01/27/2019 06:03 P Electronically Signed by [place] Nichols MD 01/28/2019 05:44 P
[2019-01-28 22:00] VITALS: BP 121/78
[2019-01-29] MEDS: LEVOTHYROXINE 100MCG TABLET (0.1MG) PO SCH (05:48)
[2019-01-29] MEDS: D5W/0.45% SODIUM CHLORIDE 1,000 ML IV SCH (05:51)
[2019-01-29 06:00] VITALS: BP 120/81
[2019-01-29 06:10] LABS: HEMATOCRIT 34.4 % (36.0-47.0); HEMOGLOBIN 11.1 g/dl (12.0-15.5); MEAN CORPUSCULAR HEMOGLOBIN 27.5 pg (27.0-33.0); MEAN CORPUSCULAR HGB CONC 32.3 g/dl (32.0-36.5); MEAN CORPUSCULAR VOLUME 85.4 fl (80.0-96.0); PLATELET COUNT, AUTOMATED 374 10^3/uL (150-450); RED BLOOD COUNT 4.03 10^6/uL (4.00-5.40); WHITE BLOOD COUNT 4.2 10^3/uL (4.0-10.0)
[2019-01-29 06:36] LABS: BLOOD UREA NITROGEN 7 MG/DL (7-18); CARBON DIOXIDE LEVEL 24 MEQ/L (21-32); CHLORIDE LEVEL 109 MEQ/L (98-107); CREATININE FOR GFR 0.65 MG/DL (0.55-1.30); GLOMERULAR FILTRATION RATE > 60.0 (>39); GLUCOSE, FASTING 94 MG/DL (70-100); MAGNESIUM LEVEL 2.1 MG/DL (1.8-2.4); POTASSIUM SERUM 3.5 MEQ/L (3.5-5.1); SODIUM LEVEL 138 MEQ/L (136-145)
--- NOTE | 2019-01-29 13:36 | DS.PDOC ---
Discharge Summary General Date of Admission Jan 26, 2019 at 22:51 Date of Discharge Jan 29, 2019 Attending Physician: SYLWIA MURGUIA MD Specialist/Consultants Involve: GERARDO GORDON MD Discharge Summary PROCEDURES PERFORMED DURING STAY: None. ADMITTING DIAGNOSES: 1. Large bowel obstruction/colitis 2. Lactic acidosis 3. Thrombocytosis 4. Decreased GFR/ABNER 5. Hyperglycemia 6. Hypothyroidism 7. Elevated alkaline phosphatase DISCHARGE DIAGNOSES: 1. Large bowel obstruction 2. Lactic acidosis 3. Thrombocytosis - resolved. 4. Decreased GFR - resolved. 5. Hyperglycemia - resolved. 6. Hypothyroidism 7. Isolated elevated alkaline phosphatase COMPLICATIONS/CHIEF COMPLAINT: Colitis; Large Bowel Obstruction. HISTORY OF PRESENT ILLNESS: Patient is a 73-year-old female with a past medical history of hypothyroidism who presented to [facility] emergency department complaining of abdominal pain and distention. She reports that she had abdominal pain, loose stools without hematochezia, and a "gassy" feeling in her stomach on 01/21/2019. She had two similar past episodes which had resolved spontaneously. The first episode was 6-8 weeks ago, involved abdominal pain and nausea, and lasted a few days. The second episode was 3-4 weeks ago and was similar. The current episode lasted longer and was more severe. Her abdominal pain increased on 01/23/2019 with associated decreased appetite. Nausea began on 01/24/2019 with further increasing abdominal pain. She was not able to consume food or water without vomiting. Pt presented to an urgent care center on 01/26/2019 and was directed to go to the hospital instead. HOSPITAL COURSE: Patient's vitals were stable in the emergency department. A CT abdomen/pelvis was performed which revealed "moderate distal sigmoid and rectal wall thickening and pericolonic edema; gaseous distention of the proximal sigmoid, and abdominal colon with increased intraluminal fluid of the ascending colon." A mild lactic acidosis was discovered. General Surgeon Gerardo Gordon MD was consulted. Patient was admitted to med/surg for monitoring and workup for possible obstruction. A barium enema showed "sigmoid diverticulosis with some luminal narrowing, with no evidence of an obstruction." Patient was kept NPO and treated with bowel rest and IV fluids. Frequent ambulation was encouraged. Patient continued to have loose, watery stools without hematochezia throughout her hospital course. On hospital day 2, she developed erythema, swelling, and itchiness of the right distal forearm which resolved spontaneously and did not recur. Patient developed hypokalemia which was treated successfully by oral p otassium chloride supplementation with magnesium follow-up. Workup was negative for mechanical obstruction. Patient was shown to be stable for discharge to outpatient follow-up and management on hospital day 4. DISCHARGE MEDICATIONS: Please see below. ALLERGIES: Please see below. PHYSICAL EXAMINATION ON DISCHARGE: VITAL SIGNS: Please see below. GENERAL: Pt appears stated age and is lying comfortably in bed in no acute distress. HEENT: Normocephalic, atraumatic. CARDIOVASCULAR EXAMINATION: Regular rate and rhythm. No murmurs, rubs, or gallops. RESPIRATORY EXAMINATION: Clear to auscultation b/l. No wheezes, rales, or rhonchi. ABDOMINAL EXAMINATION: No bruising, bumps, or rashes. Bowel sounds present in all 4 quadrants. Mild epigastric tenderness; otherwise no tenderness in all 4 quadrants. No guarding, rebound, or rigidity on palpation. Tympanic to percussion in all 4 quadrants. EXTREMITIES: Upper extremities showed no bruising, bumps, rashes, warmth, swelling b/l. SKIN: [place], warm, dry. NEUROLOGICAL EXAMINATION: Patient has baseline mild hearing loss. PSYCHIATRIC EXAMINATION: Alert and oriented x3. Pt is pleasant and cooperative. She answers questions appropriately. Affect is full. LABORATORY DATA: Please see below. IMAGIN. CT Abdomen/Pelvis, From report: - "Moderate distal sigmoid and rectal wall thickening and pericolonic edema. The finding is consistent with nonspecific colitis. Clinical correlation to determine the specific etiology is recommended. - Gaseous distention of the proximal sigmoid, and abdominal colon with increased intraluminal fluid of the ascending colon. Functional colonic obstruction difficult to exclude. - Mild non-specific RIGHT pelvic small bowel wall thickening. Consider infectious/inflammatory and ischemic etiologies. - Diverticulosis - LEFT adnexal cyst. Pelvic sonography recommended for further evaluation. - Calcified RIGHT uterine leiomyomata. - Nonspecific small LEFT lobe hepatic hypodensity. Comparison with prior studies recommended, if available. Otherwise followup may be helpful. - RIGHT lobe hepatic probable cyst. - Small hiatal hernia. - LEFT renal parapelvic cysts." 2. Barium enema: From report: "Sigmoid diverticulosis with some luminal narrowing, with no evidence of an obstruction." PROGNOSIS: Fair. ACTIVITY: As tolerated. DIET: Soft, avoid dairy. Small and frequent meals. DISCHARGE PLAN: Discharge home with outpatient follow-up. DISPOSITION: Discharge home. DISCHARGE INSTRUCTIONS: 1. Follow up with general surgery within one week. 2. Follow up with gastroenterology within one week. ITEMS TO FOLLOWUP ON ON OUTPATIENT: 1. Continuing loose, watery stools. 2. Isolated elevated alkaline phosphatase. 3. Incidental CT abdomen/pelvis findings. DISCHARGE CONDITION: Stable. TIME SPENT ON DISCHARGE: Greater than 30 minutes. Vital Signs/I&Os Vital Signs Date Time Temp Pulse Resp B/P (MAP) Pulse Ox O2 Delivery O2 Flow Rate FiO2 01/29/19 06:00 98.2 92 16 120/81 (94) 99 Room Air 01/28/19 14:00 92.0 I&O- Last 24 Hours up to 6 AM 01/29/19 06:00 Intake Total 2480 ml Output Total 600 ml Balance 1880 ml Laboratory Data Labs 24H Laboratory Tests 2 01/28/19 11:57: Bedside Glucose (Misc Panel) 97 01/29/19 05:42: Nucleated Red Blood Cells % (auto) 0.0, Anion Gap 5L, Glomerular Filtration Rate > 60.0, Calcium Level 8.0L, Magnesium Level 2.1 CBC/BMP Laboratory Tests 01/29/19 05:42 FSBS Laboratory Tests Test 01/28/19 11:57 Range/Units Bedside Glucose (Misc Panel) 97 83-110 MG/DL Discharge Medications Scheduled Aspirin (Aspirin EC) 81 Mg Tab, 81 MG PO DAILY, (Reported) Calcium Carb/Vitamin D3/Vit K1 (Viactiv 650 mg-12.5 Mcg Chew) 1 Each Tab.chew, 3 CHEW PO DAILY, (Reported) Cholecalciferol (Vitamin D3) (Vitamin D3) 25 Mcg Tablet, 25 MCG PO DAILY, (Reported) Levothyroxine Sodium (Levothyroxine Sodium) 100 Mcg Tab, 100 MCG PO DAILY, (Reported) Ondansetron HCl (Zofran) 4 Mg Tablet, 1 TAB PO Q6H for nasuea Allergies Coded Allergies: No Known Allergies (Unverified , 05/23/17) GME ATTESTATION GME ATTESTATION My faculty preceptor for this patient encounter was physically present during the encounter and was fully available. All aspects of the patient interview, examination, medical decision making process, and medical care plan development were reviewed and approved by the faculty preceptor. The faculty preceptor is aware and concurs with the plan as stated in the body of this note and will attest to such by his/her cosignature. GME ATTESTATION GME ATTESTATION My faculty preceptor for this patient encounter was physically present during the encounter and was fully available. All aspects of the patient interview, examination, medical decision making process, and medical care plan development were reviewed and approved by the faculty preceptor. The faculty preceptor is aware and concurs with the plan as stated in the body of this note and will attest to such by his/her cosignature. ATTENDING NOTE Patient was seen and examined by me this morning with the residents. Agree with the above assessment and plan SHERRI MOORE OMS-III Jan 29, 2019 10:11 SYLWIA MURGUIA MD Jan 30, 2019 10:53
[2019-01-29 14:00] VITALS: BP 123/76
[2019-01-29] MEDS ORDERED: ZOFR4TAB16 PO (14:18)
== END 2019-01-29 16:05 | disposition home or self-care (01) | DRG 389 ==
LOC: M ED 14:19 → M ED INP 22:51 → M MSPAV 01-27 00:32
PROVIDERS: ADMIT Internal Medicine; ATTEND Internal Medicine
DX: K56.609 Unspecified intestinal obstruction, unspecified as to partial versus complete obstruction (principal); N17.9 Acute kidney failure, unspecified; E87.2 Acidosis; K52.9 Noninfective gastroenteritis and colitis, unspecified; E03.9 Hypothyroidism, unspecified; Z79.82 Long term (current) use of aspirin; Z79.899 Other long term (current) drug therapy; K57.30 Diverticulosis of large intestine without perforation or abscess without bleeding; K44.9 Diaphragmatic hernia without obstruction or gangrene; D25.9 Leiomyoma of uterus, unspecified; E16.2 Hypoglycemia, unspecified

== ENCOUNTER → 2019-01-26 | Outpatient (CLI) | payer MEDICARE, OTHER ==
[~2019-01-26] MED LIST changes: -ASPI1TAB PO; +ASPI81TA26 PO; +VIAC1CHW PO; +VITATAB26 PO
--- NOTE | 2019-01-26 14:30 | REP ---
ABDOMEN: Two AP films of the abdomen and pelvis are performed. There is dilatation of the right colon. The maximum transverse diameter is approximately 11.9 cm. Small amount of rectosigmoid air is seen. There is no evidence of small bowel obstruction. There are degenerative changes of the spine. IMPRESSION: Dilated right colon up to about 11.9 cm. This may indicate underlying colitis and ileus. Electronically Signed by Fredy Spencer MD 01/27/2019 03:55 P
[2019-01-26 16:32] LABS: HEMATOCRIT 46.7 % (36.0-47.0); HEMOGLOBIN 14.1 g/dl (12.0-15.5); MEAN CORPUSCULAR HGB CONC 30.2 g/dl (32.0-36.5); MEAN CORPUSCULAR VOLUME 89.5 fl (80.0-96.0); PLATELET COUNT, AUTOMATED 592 10^3/uL (150-450); RED BLOOD COUNT 5.22 10^6/uL (4.00-5.40); WHITE BLOOD COUNT 7.6 10^3/uL (4.0-10.0)
[2019-01-26 16:44] LABS: ALBUMIN 3.4 GM/DL (3.2-5.2); BILIRUBIN,TOTAL 0.6 MG/DL (0.2-1.0); CALCIUM LEVEL 9.1 MG/DL (8.8-10.2); CREATININE FOR GFR 1.41 MG/DL (0.55-1.30); GLOMERULAR FILTRATION RATE 38.7 (>39); POTASSIUM SERUM 4.1 MEQ/L (3.5-5.1); TOTAL PROTEIN 7.6 GM/DL (6.4-8.2)
[2019-01-26 17:31] LABS: LYMPHOCYTES 2 % (16-44); METAMYELOCYTES 1 % (0-0); MONOCYTES 16 % (0-5); NEUTROPHILS 59 % (28-66); PLATELET ESTIMATE INCREASED (NORMAL)
== END ==
LOC: M WUC 13:33
PROVIDERS: ATTEND Nurse Practitioner Family
DX: R11.2 Nausea with vomiting, unspecified (principal); R14.0 Abdominal distension (gaseous); R19.7 Diarrhea, unspecified

== ENCOUNTER → 2019-02-26 | Outpatient (CLI) | payer MEDICARE, OTHER ==
[~2019-02-26] MED LIST changes: +E-Z-GAS II EFFERVESCENT PACKET (SODIUM BICARB./CITRIC ACID/SIMETHICONE) As Ordered ONE; +E-Z-HD 98% w/w 340GM SUSP BTL As Ordered ONE; +E-Z-PAQUE 96% w/w SUSP 176GM BTL As Ordered ONE; +VIAC1CHW PO; +VITATAB26 PO; +ZOFR4TAB16 PO
--- NOTE | 2019-02-26 15:21 | REP ---
UPPER GI AIR CONTRAST AND SMALL BOWEL FOLLOW THROUGH The procedure was performed under the direct supervision of Dr. Nichols. The images were reviewed with Dr. Nichols The graduating machine operator film shows no organomegaly or pathological masses. The intestinal gas pattern is non-specific. There are residual barium collections in the sigmoid diverticula from the patient's previous barium enema. Liquid barium and gas producing crystals were given in the erect position as well as liquid barium in the prone oblique position in order to perform a double contrast upper GI examination. Additionally liquid barium was given at the end of the examination in order to perform a small bowel follow through. The oral and pharyngeal stages of deglutition are unremarkable. Esophageal transport is prompt and efficient and there is no esophagitis, stricture or mucosal ring. There is a sliding type hiatal hernia. Gastroesophageal reflux is not demonstrated on this examination. Within the stomach there are multiple sub centimeter polyps identified. The duodenal hendricks are normally outlined . The mucosal folds are smooth and regular. There is no duodenitis pancreatitis peptic ulcer disease or neoplasm. The visualized portion of the proximal small bowel appears normal in course and caliber. The barium column was followed through the small bowel to the level of the terminal ileum. Small bowel transit time is approximately 30 minutes . During fluoroscopy gentle palpation shows all loops are freely movable and pliable. There are no fixed or angulated loops. The small bowel mucosal pattern is normal in course and caliber. There is no transition to suggest a partial small-bowel obstruction. Spot filming of the terminal ileum shows it to be unremarkable. The mural thickening in the small bowel seen on a previous CT scan dated 01/26/2019 is resolved. Impression: 1. There is a sliding type hiatal hernia. 2. There are multiple sub centimeter polyps in the stomach. 3. The mural thickening in the small bowel seen on a previous CT scan dated 01/26/2019 is resolved. 3.9 minutes of fluoro time was utilized for this procedure. Electronically Signed by FLORIN Wynn 02/26/2019 03:12 P Electronically Signed by [place] Nichols MD 02/26/2019 03:13 P
== END ==
LOC: M RAD 08:31
PROVIDERS: ATTEND Internal Medicine Gastroenterology
DX: R10.9 Unspecified abdominal pain (principal); R93.3 Abnormal findings on diagnostic imaging of other parts of digestive tract; K59.00 Constipation, unspecified; K44.9 Diaphragmatic hernia without obstruction or gangrene; K31.7 Polyp of stomach and duodenum

== ENCOUNTER → 2019-04-01 | Outpatient (CLI) | payer MEDICARE, OTHER ==
[~2019-04-01] MED LIST changes: -E-Z-GAS II EFFERVESCENT PACKET (SODIUM BICARB./CITRIC ACID/SIMETHICONE) As Ordered ONE; -E-Z-HD 98% w/w 340GM SUSP BTL As Ordered ONE; -E-Z-PAQUE 96% w/w SUSP 176GM BTL As Ordered ONE
--- NOTE | 2019-04-01 08:50 | REPMRS ---
Patient History The patient states she had a clinical breast exam in 09/2018. Patient is postmenopausal, has history of skin cancer at age 53, and is nulliparous. Family history of premenopausal breast cancer at age 50 or over in maternal grandmother, prostate cancer at age 50 or over in brother. Benign excisional biopsy of the left breast, 2018. Benign excisional biopsy of the left breast, 1999. No Hormone Replacement Therapy Digital Woman Screen Mammo: April 01, 2019 - Exam #: [id number] Bilateral CC and MLO view(s) were taken. Technologist: Madison Wood, Technologist Prior study comparison: March 24, 2018, bilateral digital woman screen mammo performed at [facility] [place]. March 15, 2017, digital woman screen mammo performed at [facility] [place]. February 23, 2016, digital woman screen mammo performed at [facility] [place]. FINDINGS: The breast tissue is heterogeneously dense. This may lower the sensitivity of mammography. There is a moderate amount of heterogeneously dense fibroglandular tissue which is fairly symmetric. There is no interval development of dominant mass, architectural distortion, or grouped microcalcification typical of malignancy. There has been no change in the appearance of the mammogram from the prior studies. 3-D tomosynthesis shows no additional findings. Assessment: BI-RADS/ACR category 1 mammogram. Negative Mammogram. Recommendation Routine screening mammogram of both breasts in 1 year (for women over age 40). This patient's Lifetime Breast Cancer RIsk is estimated at 6.5 %. This mammogram was interpreted with the aid of an FDA-approved computer-aided dectection system. Electronically Signed By: Anuj Nichols MD 04/01/19 [id number]
--- NOTE | 2019-04-07 09:52 | DEXA ---
AP SPINE L1 - L4 1.222 0.2 2.0 LT FEMUR TOTAL 0.779 -1.8 -0.1 LT NECK 0.768 -1.9 0.0 RT FEMUR TOTAL 0.740 -2.1 -0.4 RT NECK 0.771 -1.9 0.0 TOTAL BODY TOTAL OTHER COMMENTS: Normal bone densitometry of the spine. There is low bone density of the hips. The density of the spine has increased 6.9% since the initial exam on 09/23/2002. The spine density has decreased 3.0% since the most recent exam on 03/15/2017. The density of the left hip has decreased 10.1% since the initial exam on 09/23/2002. The density of the left hip has decreased 1.5% since the most recent exam on 03/15/2017. The density of the right hip has decreased 11.0% since the initial exam on 09/23/2002. The density of the right hip has decreased 3.5% since the most recent exam on 03/15/2017. FOLLOW-UP: Recommendation for the next bone density exam: 2 years. JOHN
== END ==
LOC: M WHC 07:53
PROVIDERS: ATTEND Nurse Practitioner Family
DX: Z12.31 Encounter for screening mammogram for malignant neoplasm of breast (principal); Z80.3 Family history of malignant neoplasm of breast; Z85.828 Personal history of other malignant neoplasm of skin; Z80.42 Family history of malignant neoplasm of prostate; M85.851 Other specified disorders of bone density and structure, right thigh; M85.852 Other specified disorders of bone density and structure, left thigh

== ENCOUNTER 2019-05-12 12:28 | Inpatient (IN) | payer MEDICARE, OTHER ==
[~2019-05-12] VITALS: Ht 162.6 cm; Wt 67.6 kg
[~2019-05-12 12:28] MED LIST changes: -ALIG4CAP PO; -LACT10SO29 PO; -ONDA-83 PO; -VITAD1000T PO
[2019-05-12] MEDS ORDERED: NS 1,000 ML IV ONE (13:00)
[2019-05-12] MEDS ORDERED: ISOVUE-370 76% 100ML VIAL (Q9967) As Ordered ONE (13:24)
[2019-05-12] MEDS ORDERED: ONDANSETRON 4MG/2ML VIAL (J2405) IV ONE (13:30)
[2019-05-12 13:36] LABS: BASO % 0.3 % (0.0-1.0); EOS # 0.1 10^3/uL (0.0-0.5); EOS % 0.7 % (0.0-3.0); HEMATOCRIT 39.9 % (36.0-47.0); HEMOGLOBIN 12.8 g/dl (12.0-15.5); LYMPH # 0.9 10^3/uL (1.5-5.0); LYMPH % 13.4 % (24.0-44.0); MEAN CORPUSCULAR HEMOGLOBIN 28.9 pg (27.0-33.0); MEAN CORPUSCULAR HGB CONC 32.1 g/dl (32.0-36.5); MEAN CORPUSCULAR VOLUME 90.1 fl (80.0-96.0); MONO # 0.6 10^3/uL (0.0-0.8); MONO % 8.1 % (0.0-5.0); NEUTROPHILS # 5.4 10^3/uL (1.5-8.5); NEUTROPHILS % 77.1 % (36.0-66.0); PLATELET COUNT, AUTOMATED 354 10^3/uL (150-450); RED BLOOD COUNT 4.43 10^6/uL (4.00-5.40)
[2019-05-12 13:46] LABS: INR 1.25; PROTHROMBIN TIME 15.4 SECONDS (11.8-14.0)
[2019-05-12 13:47] LABS: PARTIAL THROMBOPLASTIN TIME 32.9 SECONDS (25.0-38.4)
[2019-05-12 13:58] LABS: ALBUMIN 3.5 GM/DL (3.2-5.2); BILIRUBIN,DIRECT 0.2 MG/DL (0.0-0.2); BILIRUBIN,TOTAL 0.6 MG/DL (0.2-1.0); TOTAL PROTEIN 7.5 GM/DL (6.4-8.2)
--- NOTE | 2019-05-12 15:10 | REP ---
CT ABDOMEN AND PELVIS WITH IV CONTRAST: TECHNIQUE: Axial contrast enhanced images from the lung bases to the pubic symphysis using 100 mL Isovue 370 intravenous contrast material with multiplanar reformations. COMPARISON: 01/26/2019. Visualized lung bases demonstrate fibrotic changes. There is a small hiatal hernia. There are a couple of tiny cysts in the liver. Spleen is normal in size with no intrinsic abnormality. The adrenal glands are normal. No pancreatic mass is seen. There appear to be a few parapelvic cysts of the left kidney. Kidneys are otherwise unremarkable. There is no abdominal aortic aneurysm with moderate atherosclerotic calcification. There is no adenopathy. There is no free air or free fluid. There is diffuse thickening of the rectosigmoid colon suggesting diffuse colitis. The findings are similar to the prior exam of 01/26/2019. The more proximal colon is dilated and filled with air and fecal material. I suspect some degree of obstruction at the rectosigmoid. No other area of bowel wall thickening. There is mild pericolonic edema diffusely. In the left pelvis there is a 5.2 cm cyst likely rising from the left ovary. This may represent cystic neoplasm of the left ovary. There is no other evidence of pelvic mass. Urinary bladder is mildly distended and deviated to the right of midline. There is a 1.5 cm calcified fibroid in the uterus on the right. There are degenerative changes of the spine. IMPRESSION: Diffuse thickening of the rectosigmoid colon suggesting possible colitis. The findings are similar to the prior study of 01/26/2019. Also there is diffuse moderate dilatation of the more proximal colon as seen on the prior study. I suspect some degree of obstruction at the level of the rectosigmoid. Mild diffuse pericolonic edema. No free air or free fluid. Cystic structure of the left pelvis appears to arise from the left ovary measuring 5.2 cm in diameter. Previously this measured about 4.9 cm. Recommend further evaluation with pelvic ultrasound. Electronically Signed by Fredy Spencer MD 05/12/2019 06:21 P
--- NOTE | 2019-05-12 15:37 | HPEPDOC ---
General Date of Admission 05/12/19 Date of Service: May 12, 2019 Chief Complaint The patient is a 73-year-old female presents with abdominal pain. Source: Patient Exam Limitations: No limitations History of Present Illness 73 year old female presents with abdominal pain. Symptoms started 3 days ago with generalized abdominal pain and constipation. States called her GI doctor and was told to start using Miralax, which she has been doing. Noted some im provement but for the past day has been only passing gas, last bowel movement on Saturday. Denies N/V, fever/chills, chest pain/pressure, shortness of breath, urinary complaints. Home Medications Scheduled Aspirin (Aspirin EC) 81 Mg Tab, 81 MG PO DAILY, (Reported) Bifidobacterium Infantis (Align) 4 Mg Capsule, 4 MG PO DAILY, (Reported) Calcium Carb/Vitamin D3/Vit K1 (Viactiv 650 mg-12.5 Mcg Chew) 1 Each Tab.chew, 3 CHEW PO DAILY, (Reported) Cholecalciferol (Vitamin D3) (Vitamin D3) 1,000 Unit Tablet, 1,000 UNITS PO DAILY, (Reported) Levothyroxine Sodium (Levothyroxine Sodium) 100 Mcg Tab, 100 MCG PO DAILY, (Repo rted) Scheduled PRN Ondansetron HCl (Ondansetron HCl) 4 Mg Tablet, 4 MG PO Q4H PRN for NAUSEA OR VOMITING, (Reported) Allergies Coded Allergies: No Known Allergies (Unverified , 05/23/17) Past Medical History Medical History PAST MEDICAL HISTORY: 1. Hypothyroidism PAST SURGICAL HISTORY: 1. Appendectomy 2. Fertility procedure 3. Left foot bunion removal Surgical History as above Review of Systems Constitutional: Denies: Chills, Fever, Night Sweats Eyes: Denies: Pain, Vision change ENT: Denies: Head Aches, Ear Pain, Dysphagia Skin: Denies: Rash, Lesions, Breakdown Pulmonary: Denies: Dyspnea, Cough Cardiovascular: Denies: Chest Pain, Palpitations, Orthopnea, Paroxysmal Noc. Dyspnea, Lt Headedness Gastrointestinal: Reports: Nausea, Abdominal Pain; Denies: Vomiting, Diarrhea Genitourinary: Denies: Dysuria, Frequency, Incontinence, Retention Hematologic: Denies: Bruising, Bleeding Excessively Musculoskeletal: Denies: Neck Pain, Back Pain, Joint Pain, Muscle Pain, Spasms Neurological: Denies: Weakness, Numbness, Change in speech, Confusion Psych: Reports: Mood Normal; Denies: Depression, Memory Issues Physical Examination General Exam: Positive: Alert, No Acute Distress Eye Exam: Positive: PERRLA, Conjunctiva & lids normal, EOMI; Negative: Sclera icteric ENT Exam: Positive: Atraumatic, Mucous membr. moist/pink, Pharynx Normal Neck Exam: Positive: Supple; Negative: JVD, thyromegaly Chest Exam: Positive: Clear to auscultation, Normal air movement Heart Exam: Positive: Rate Normal, Regular Rhythm, Normal S1, Normal S2; Negative: Murmurs, Rubs Telemetry: Positive: No significant arrhythmia Abdomen Exam: Positive: Normal bowel sounds, Soft, Tenderness (no rebound/gu arding); Negative: Hepatospenomegaly Extremity Exam: Positive: Normal pulses; Negative: Clubbing, Cyanosis, Edema Skin Exam: Positive: Nl turgor and temperature; Negative: Breakdown, Lesion Neuro Exam: Positive: Normal Gait, Normal Speech, Cranial Nerves 3-12 NL, Reflexes 2+ Psych Exam: Positive: Mental status NL, Mood NL, Oriented x 3 Vital Signs Vital Signs Date Time Temp Pulse Resp B/P (MAP) Pulse Ox O2 Delivery O2 Flow Rate FiO2 05/12/19 12:50 05/12/19 12:29 97.9 96 16 97 Room Air Laboratory Data Labs 24H Laboratory Tests 2 05/12/19 13:12: Immature Granulocyte % (Auto) 0.4, Neutrophils (%) (Auto) 77.1H, Lymphocytes (%) (Auto) 13.4L, Monocytes (%) (Auto) 8.1H, Eosinophils (%) (Auto) 0.7, Basophils (%) (Auto) 0.3, Neutrophils # (Auto) 5.4, Lymphocytes # (Auto) 0.9L, Monocytes # (Auto) 0.6, Eosinophils # (Auto) 0.1, Basophils # (Auto) 0.0, Nucleated Red Blood Cells % (auto) 0.0, Prothrombin Time 15.4H, Prothromb Time International Ratio 1.25, Activated Partial Thromboplast Time 32.9, Lactic Acid Level 1.2, Total Bilirubin 0.6, Direct Bilirubin 0.2, Aspartate Amino Transf (AST/SGOT) 16, Alanine Aminotransferase (ALT/SGPT) 10L, Alkaline Phosphatase 121H, Total Protein 7.5, Albumin 3.5, Albumin/Globulin Ratio 0.88L, Amylase Level 37, Lipase 68L 05/12/19 13:18: POC Glucose (Misc Panel) 105, POC Sodium (Misc Panel) 136, POC Potassium (Misc Panel) 3.5, POC Chloride (Misc Panel) 99, POC Total CO2 (Misc Panel) 26.0, POC Blood Urea Nitrogen (Misc Panel 15, POC Ionized Calcium (Misc Panel) 4.5, POC Creatinine (Misc Panel) 0.7, POC Hematocrit (Misc Panel) 40.0 05/12/19 14:35: Urine Color STRAW, Urine Appearance CLEAR, Urine pH 6.0, Urine Specific [place] 1.014, Urine Protein NEGATIVE, Urine Glucose (UA) NEGATIVE, Urine Ketones 1+H, Urine Blood NEGATIVE, Urine Nitrite NEGATIVE, Urine Bilirubin NEGATIVE, Urine Urobilinogen 0.2, Urine Leukocyte Esterase NEGATIVE, Urine WBC (Auto) 0, Urine RBC (Auto) 0, Urine Hyaline Casts (Auto) 0, Urine Bacteria (Auto) NEGATIVE, Urine Squamous Epithelial Cells 0, Urine Sperm (Auto) CBC/BMP Laboratory Tests 05/12/19 13:12 Microbiology Microbiology 05/12/19 Blood Culture, Received Pending 05/12/19 Blood Culture, Received Pending Assessment/Plan 1. Large bowel obstruction/colitis - admit to med/surg. - Consult to surgery Dr. Gordon. - IVF, NPO. - bowel regimen, tap water enemas as per surgery. - pain control, antiemetics prn. 2. hypothyroidism - continue synthroid. Plan / VTE VTE Prophylaxis Ordered?: Yes FRANKY MCKEON MD May 12, 2019 15:37
[2019-05-12] MEDS ORDERED: VITAD1000T PO (15:44)
[2019-05-12] MEDS ORDERED: ONDA-83 PO (15:44)
[2019-05-12] MEDS ORDERED: ALIG4CAP PO (15:44)
[2019-05-12] MEDS: NS 1,000 ML IV SCH (17:14)
[2019-05-12 17:26] VITALS: BP 123/72
[2019-05-12] MEDS: SENOKOT S TAB PO SCH (20:51)
[2019-05-12 22:00] VITALS: BP 122/72
[2019-05-13] MEDS: ONDANSETRON 4MG/2ML VIAL (J2405) IV PRN ×3 (01:16→14:49)
[2019-05-13] MEDS: NS 1,000 ML IV SCH ×2 (04:23→18:54)
[2019-05-13] MEDS: LEVOTHYROXINE 100MCG TABLET (0.1MG) PO SCH (05:47)
[2019-05-13 06:00] VITALS: BP 122/72
--- NOTE | 2019-05-13 06:10 | CR.PDOC ---
General Surgery Consultation Date of Consultation 05/13/19 History and Physical CONSULT REPORT FOR: hospitalist service REASON FOR CONSULTATION: large bowel obstruction HISTORY OF PRESENT ILLNESS: Our patient is a 73 year old female whom I met back on her last admission in January 2019 with similar symptoms of a 1 week history of not being able to move her bowels. Please refer to my previous consult note during that admission. Essentially she was had some transient bloackage from luminal narrowing from her diverticulosis/chronic diverticulitis resolve with laxatives and enemas given to her during that admission. She has no evidence of malignancy as cause of obstruction. Last colonoscopy was in [address] Arreguin. She went home and never had a follow up with me. She felt that if she could get relieved with use of miralax as laxatives she maybe able to avoid surgery. She was doing well up until 2 sundays ago which was her last bm. She tried miralax with minimal results. She continued to use miralax daily but has not had success with it. She is still able to pass flatus and was tolerating diet last week. Over the weekenend she felt more bloated and started feeling mildly nauseated so she cut down on her oral intake to liquids. She was seen PAST MEDICAL HISTORY: 1. . PAST SURGICAL HISTORY: INCLUDES: 1. . PREVIOUS ANESTHESIA REACTIONS: ALLERGIES: Please see below. FAMILY HISTORY: . HOME MEDICATIONS: Please see below. REVIEW OF SYSTEMS: GENERAL: [Denies chills, reports weight gain, reports feeling febrile yes terday]. HEENT: [Denies blurred vision and double vision. Denies ear symptoms. Denies hoarseness]. NECK: Denies any neck pain]. CARDIOVASCULAR: [Denies chest pain and palpitations]. MUSCULOSKELETAL: [Denies arthralgias, back pain and thrombophlebitis]. SKIN: [Denies rash]. NEUROLOGIC: [Denies headache, stroke and transient ischemic attack]. PSYCHIATRIC: [Denies anxiety and depression]. ENDOCRINE: [Denies thyroid disease]. HEMATOLOGY/ONCOLOGY: [Denies bleeding or clotting disorder]. HEART: [Denies any chest pains, palpitations, paroxysmal dyspnea, orthopnea]. PULMONARY: [Denies chronic cough, dyspnea and wheezing]. GASTROINTESTINAL: [Denies rectal bleeding, family history of colon cancer, c onstipation, diarrhea, dysphagia, heartburn and jaundice]. GENITOURINARY: [Denies dysuria, frequency, hematuria and nocturia]. ENDOCRINE: [Denies polydipsia, polyphagia, polyuria, heat or cold intolerance]. INFECTIOUS: [Denies any recent upper respiratory tract infection, UTI, need for use of antibiotics]. NUTRITION: [Reports good appetite]. PHYSICAL EXAMINATION: VITALS SIGNS: Please see below. GENERAL APPEARANCE:[Patient seen, laying in bed, awake, alert, and oriented. Comfortable, in no acute distress]. SKIN: [Warm and moist]. HEENT: [Normocephalic, atraumatic. [place] palpebral conjunctiva, anicteric sclerae. Lips and mucosa appear moist]. NECK: [Supple, no thyromegaly. No obvious jugular venous distention]. LUNGS: [Clear to auscultation bilaterally. No wheezing appreciated]. HEART: [No chest wall abnormalities. Regular rate and rhythm with no murmurs appreciated]. ABDOMEN: Abdomen is , soft, . [No hepatosplenomegaly. No umbilical or groin herniations, nondistended. No noticeable rebound or guarding. No grimacing with palpation. No rebound tenderness. No masses appreciated]. EXTREMITIES: [Extremities have no deformities. No edema identified] ANCILLARIES: . LABORATORY DATA: Please see below. IMAGING STUDIES: . IMPRESSION AND PLAN: partial large bowel obstruction at the level of rectosigmoid area secondary to colonic narrowing from diverticulosis/chronic diverticulitis as evidenced by prior barium enema done January 2019 with recurrence I am hoping that she will improve with some bowel regimen, laxatives both oral and rectal route. She has received some tap water enema with some partial effect. I will put her on a regular dose of lactulose as well as fleets enema once daily to try to open her up. If she is able to open up, he will need to place her on some bowel regimen when she goes home. I have spoken to her about my recommendation of undergoing elective sigmoid colectomy once the Covid pandemic has subsided though we are able to do elective surgery. Otherwise if she does not open up appropriately, she may need an urgent procedure for resection with or without diversion. Vital Signs Vital Signs Date Time Temp Pulse Resp B/P (MAP) Pulse Ox O2 Delivery O2 Flow Rate FiO2 05/12/19 22:00 99.0 80 20 122/72 (89) 94 05/12/19 17:09 Room Air I&Os I&O- Last 24 Hours up to 6 AM 05/13/19 05:59 Intake Total 1450 ml Output Total 425 ml Balance 1025 ml Laboratory Data Labs 24H Laboratory Tests 2 05/12/19 13:12: Immature Granulocyte % (Auto) 0.4, Neutrophils (%) (Auto) 77.1H, Lymphocytes (%) (Auto) 13.4L, Monocytes (%) (Auto) 8.1H, Eosinophils (%) (Auto) 0.7, Basophils (%) (Auto) 0.3, Neutrophils # (Auto) 5.4, Lymphocytes # (Auto) 0.9L, Monocytes # (Auto) 0.6, Eosinophils # (Auto) 0.1, Basophils # (Auto) 0.0, Nucleated Red Blood Cells % (auto) 0.0, Prothrombin Time 15.4H, Prothromb Time International Ratio 1.25, Activated Partial Thromboplast Time 32.9, Lactic Acid Level 1.2, Total Bilirubin 0.6, Direct Bilirubin 0.2, Aspartate Amino Transf (AST/SGOT) 16, Alanine Aminotransferase (ALT/SGPT) 10L, Alkaline Phosphatase 121H, Total Protein 7.5, Albumin 3.5, Albumin/Globulin Ratio 0.88L, Amylase Level 37, Lipase 68L 05/12/19 13:18: POC Glucose (Misc Panel) 105, POC Sodium (Misc Panel) 136, POC Potassium (Misc Panel) 3.5, POC Chloride (Misc Panel) 99, POC Total CO2 (Misc Panel) 26.0, POC Blood Urea Nitrogen (Misc Panel 15, POC Ionized Calcium (Misc Panel) 4.5, POC Creatinine (Misc Panel) 0.7, POC Hematocrit (Misc Panel) 40.0 05/12/19 14:35: Urine Color STRAW, Urine Appearance CLEAR, Urine pH 6.0, Urine Specific [place] 1.014, Urine Protein NEGATIVE, Urine Glucose (UA) NEGATIVE, Urine Ketones 1+H, Urine Blood NEGATIVE, Urine Nitrite NEGATIVE, Urine Bilirubin NEGATIVE, Urine Urobilinogen 0.2, Urine Leukocyte Esterase NEGATIVE, Urine WBC (Auto) 0, Urine RBC (Auto) 0, Urine Hyaline Casts (Auto) 0, Urine Bacteria (Auto) NEGATIVE, Urine Squamous Epithelial Cells 0, Urine Sperm (Auto) CBC/BMP Laboratory Tests 05/12/19 13:12 Microbiology Microbiology 05/12/19 Blood Culture, Received Pending 05/12/19 Blood Culture, Received Pending Home Medications Scheduled Aspirin (Aspirin EC) 81 Mg Tab, 81 MG PO DAILY, (Reported) Bifidobacterium Infantis (Align) 4 Mg Capsule, 4 MG PO DAILY, (Reported) Calcium Carb/Vitamin D3/Vit K1 (Viactiv 650 mg-12.5 Mcg Chew) 1 Each Tab.chew, 3 CHEW PO DAILY, (Reported) Cholecalciferol (Vitamin D3) (Vitamin D3) 1,000 Unit Tablet, 1,000 UNITS PO DAILY, (Reported) Levothyroxine Sodium (Levothyroxine Sodium) 100 Mcg Tab, 100 MCG PO DAILY, (Reported) Scheduled PRN Ondansetron HCl (Ondansetron HCl) 4 Mg Tablet, 4 MG PO Q4H PRN for NAUSEA OR VOMITING, (Reported) Allergies Coded Allergies: No Known Allergies (Unverified , 05/23/17) MONROE BURGER MD May 13, 2019 05:29
[2019-05-13 06:28] LABS: ALBUMIN 2.7 GM/DL (3.2-5.2); ALT/SGPT 7 U/L (12-78); BILIRUBIN,TOTAL 0.4 MG/DL (0.2-1.0); BLOOD UREA NITROGEN 16 MG/DL (7-18); CALCIUM LEVEL 7.7 MG/DL (8.8-10.2); CARBON DIOXIDE LEVEL 25 MEQ/L (21-32); CHLORIDE LEVEL 108 MEQ/L (98-107); CREATININE FOR GFR 0.69 MG/DL (0.55-1.30); GLOMERULAR FILTRATION RATE > 60.0 (>39); GLUCOSE, FASTING 71 MG/DL (70-100); POTASSIUM SERUM 3.4 MEQ/L (3.5-5.1); SODIUM LEVEL 141 MEQ/L (136-145); TOTAL PROTEIN 5.8 GM/DL (6.4-8.2)
[2019-05-13] MEDS: SENOKOT S TAB PO SCH ×2 (08:15→20:53)
[2019-05-13] MEDS: LACTULOSE 20 GM/30 ML SYRUP UD PO SCH ×3 (08:15→20:53)
[2019-05-13] MEDS: ENOXAPARIN 40 MG/0.4 ML SYRINGE (J1650) SC SCH (08:16)
--- NOTE | 2019-05-13 09:43 | IPNPDOC ---
Subjective General Date/Time Seen The patient was seen on 05/13/19 at 09:41. Subject Chief Complaint/History The patient is a 73-year-old female admitted with a reason for visit of Large Bowel Obstruction. Patient had 1 bowel movement overnight following a tap water enema given to her. She also reports passing flatus. She reports feeling mildly improved this morning. Denies any nausea or vomiting. Current Medications Current Medications Current Medications Medications (Trade) Dose Ordered Sig/[place] Route PRN Reason Start Time Stop Time Status Last Admin Dose Admin Enoxaparin Sodium (Lovenox) 40 mg DAILY SC 05/13/19 09:00 05/13/19 08:16 Home Med (Med Rec Complete!) ASDIRECTED XX 05/12/19 16:00 05/12/19 15:48 DC Lactulose (Cephulac) 30 ml TID PO 05/13/19 09:00 05/13/19 08:15 Levothyroxine Sodium (Synthroid) 100 mcg DAILY@0600 PO 05/13/19 06:00 05/13/19 05:47 Ondansetron HCl (ZOFRAN INJection) 4 mg Q4HP PRN IV NAUSEA OR VOMITING 05/12/19 16:45 05/13/19 01:16 Senna/Docusate Sodium (Senokot S) 1 tab BID PO 05/12/19 21:00 05/13/19 08:15 Sodium Chloride 1,000 ml @ 75 mls/hr [id number] IV 05/12/19 16:34 05/13/19 04:23 Allergies Coded Allergies: No Known Allergies (Unverified , 05/23/17) Objective Physical Examination Examination GENERAL APPEARANCE: Patient looks more comfortable. SKIN: Warm and dry. HEENT: Normocephalic, atraumatic. [place] palpebral conjunctiva, anicteric sclerae. Lips and mucosa appear moist. NECK: Supple, no thyromegaly. No obvious jugular venous distention. LUNGS: Clear to auscultation bilaterally. No wheezing appreciated. HEART: No chest wall abnormalities. Regular rate and rhythm with no murmurs appreciated. ABDOMEN: Abdomen is less distended in appearance, soft, nontender on palpation. EXTREMITIES: No significant extremity edema. Vital Signs Vital Signs Date Time Temp Pulse Resp B/P (MAP) Pulse Ox O2 Delivery O2 Flow Rate FiO2 05/13/19 06:00 96.5 78 18 122/72 (89) 92 Room Air I&Os I&O- Last 24 Hours up to 6 AM 05/13/19 06:00 Intake Total 1900 ml Output Total 425 ml Balance 1475 ml Laboratory Data Labs 24H Laboratory Tests 2 05/12/19 13:12: Immature Granulocyte % (Auto) 0.4, Neutrophils (%) (Auto) 77.1H, Lymphocytes (%) (Auto) 13.4L, Monocytes (%) (Auto) 8.1H, Eosinophils (%) (Auto) 0.7, Basophils (%) (Auto) 0.3, Neutrophils # (Auto) 5.4, Lymphocytes # (Auto) 0.9L, Monocytes # (Auto) 0.6, Eosinophils # (Auto) 0.1, Basophils # (Auto) 0.0, Nucleated Red Blo od Cells % (auto) 0.0, Prothrombin Time 15.4H, Prothromb Time International Ratio 1.25, Activated Partial Thromboplast Time 32.9, Lactic Acid Level 1.2, Total Bilirubin 0.6, Direct Bilirubin 0.2, Aspartate Amino Transf (AST/SGOT) 16, Alanine Aminotransferase (ALT/SGPT) 10L, Alkaline Phosphatase 121H, Total Protein 7.5, Albumin 3.5, Albumin/Globulin Ratio 0.88L, Amylase Level 37, Lipase 68L 05/12/19 13:18: POC Glucose (Misc Panel) 105, POC Sodium (Misc Panel) 136, POC Potassium (Misc Panel) 3.5, POC Chloride (Misc Panel) 99, POC Total CO2 (Misc Panel) 26.0, POC Blood Urea Nitrogen (Misc Panel 15, POC Ionized Calcium (Misc Panel) 4.5, POC Creatinine (Misc Panel) 0.7, POC Hematocrit (Misc Panel) 40.0 05/12/19 14:35: Urine Color STRAW, Urine Appearance CLEAR, Urine pH 6.0, Urine Specific [place] 1.014, Urine Protein NEGATIVE, Urine Glucose (UA) NEGATIVE, Urine Ketones 1+H, Urine Blood NEGATIVE, Urine Nitrite NEGATIVE, Urine Bilirubin NEGATIVE, Urine Urobilinogen 0.2, Urine Leukocyte Esterase NEGATIVE, Urine WBC (Auto) 0, Urine RBC (Auto) 0, Urine Hyaline Casts (Auto) 0, Urine Bacteria (Auto) NEGATIVE, Urine Squamous Epithelial Cells 0, Urine Sperm (Auto) 05/13/19 05:53: Total Bilirubin 0.4, Aspartate Amino Transf (AST/SGOT) 11, Alanine Aminotransferase (ALT/SGPT) 7L, Alkaline Phosphatase 87, Total Protein 5.8#L, Albumin 2.7#L, Albumin/Globulin Ratio 0.87L, Anion Gap 8, Glomerular Filtration Rate > 60.0, Calcium Level 7.7L CBC/BMP Laboratory Tests 05/12/19 13:12 05/13/19 05:53 Microbiology Microbiology 05/12/19 Blood Culture, Received Pending 05/12/19 Blood Culture, Received Pending Impression Partial large bowel obstruction most likely from the luminal narrowing from diverticulosis/chronic diverticulitis I have added lactulose to her bowel regimen. She tells me she is going to receive an enema today. She is nothing by mouth. I'm putting her back on liquids and this could be advanced as she is able to tolerate. I'm hoping she will open up and when she does she can go home on some bowel regimen and follow-up with me in the clinic. I still recommend an elective sigmoid colon resection to prevent recurrence. Plan / VTE VTE Prophylaxis Ordered?: Yes MONROE BURGER MD May 13, 2019 09:43
--- NOTE | 2019-05-13 10:14 | IPNPDOC ---
Subjective Date Seen The patient was seen on 05/13/19. Subjective Chief Complaint/HPI Seen and examined at bedside, patient doing much better today, had 1 bowel movement last night, passing flatus since, s/p 2 tap water enemas. General: Reports: Normal Appetite; Denies: Chills, Night Sweats, Fatigue, Malaise Constitutional: Denies: Chills, Fever, Night Sweats Eyes: Denies: Pain, Vision change ENT: Denies: Head Aches, Ear Pain, Dysphagia Skin: Denies: Rash, Lesions, Breakdown Pulmonary: Denies: Dyspnea, Cough Cardiovascular: Denies: Chest Pain, Palpitations, Orthopnea, Paroxysmal Noc. Dyspnea, Lt Headedness Gastrointestinal: Denies: Nausea, Vomiting, Abdominal Pain, Diarrhea, Constipation Genitourinary: Denies: Dysuria, Frequency, Incontinence, Retention Hematologic: Denies: Bruising, Bleeding Excessively Musculoskeletal: Denies: Neck Pain, Back Pain, Joint Pain, Muscle Pain, Spasms Neurological: Denies: Weakness, Numbness, Change in speech, Confusion Psych: Reports: Mood Normal; Denies: Depression, Memory Issues Objective Physical Examination General Exam: Positive: Alert, No Acute Distress Eye Exam: Positive: PERRLA, Conjunctiva & lids normal, EOMI; Negative: Sclera icteric ENT Exam: Positive: Atraumatic, Mucous membr. moist/pink, Pharynx Normal Neck Exam: Positive: Supple; Negative: JVD, thyromegaly Chest Exam: Positive: Clear to auscultation, Normal air movement Heart Exam: Positive: Rate Normal, Regular Rhythm, Normal S1, Normal S2; Negative: Murmurs, Rubs Telemetry: Positive: No significant arrhythmia Abdomen Exam: Positive: Normal bowel sounds, Soft, Tenderness (no rebound/guarding); Negative: Hepatospenomegaly Female Exam: Positive: Nl Ext Genitalia; Negative: Lesions, Discharge, Odor, Tenderness Extremity Exam: Positive: Normal pulses; Negative: Clubbing, Cyanosis, Edema Skin Exam: Positive: Nl turgor and temperature; Negative: Breakdown, Lesion Neuro Exam: Positive: Normal Gait, Normal Speech, Cranial Nerves 3-12 NL, Reflexes 2+ Psych Exam: Positive: Mental status NL, Mood NL, Oriented x 3 Assessment /Plan Assessment 1. partial large bowel obstruction/colitis - diet advanced to clear liquids, advance as tolerated. - s/p tap water enemas x 2, had large bowel movement, will repeat, lactulose added by surgery. - pain control, antiemetics prn. 2. hypothyroidism - continue synthroid. Plan/VTE VTE Prophylaxis Ordered?: Yes VS, I&O, 24H, Fishbone Vital Signs/I&O Vital Signs Date Time Temp Pulse Resp B/P (MAP) Pulse Ox O2 Delivery O2 Flow Rate FiO2 05/13/19 06:00 96.5 78 18 122/72 (89) 92 Room Air I&O- Last 24 Hours up to 6 AM 05/13/19 06:00 Intake Total 1900 ml Output Total 425 ml Balance 1475 ml Laboratory Data 24H LABS Laboratory Tests 2 05/12/19 13:12: Immature Granulocyte % (Auto) 0.4, Neutrophils (%) (Auto) 77.1H, Lymphocytes (%) (Auto) 13.4L, Monocytes (%) (Auto) 8.1H, Eosinophils (%) (Auto) 0.7, Basophils (%) (Auto) 0.3, Neutrophils # (Auto) 5.4, Lymphocytes # (Auto) 0.9L, Monocytes # (Auto) 0.6, Eosinophils # (Auto) 0.1, Basophils # (Auto) 0.0, Nucleated Red Blood Cells % (auto) 0.0, Prothrombin Time 15.4H, Prothromb Time International Ratio 1.25, Activated Partial Thromboplast Time 32.9, Lactic Acid Level 1.2, Total Bilirubin 0.6, Direct Bilirubin 0.2, Aspartate Amino Transf (AST/SGOT) 16, Alanine Aminotransferase (ALT/SGPT) 10L, Alkaline Phosphatase 121H, Total Protein 7.5, Albumin 3.5, Albumin/Globulin Ratio 0.88L, Amylase Level 37, Lipase 68L 05/12/19 13:18: POC Glucose (Misc Panel) 105, POC Sodium (Misc Panel) 136, POC Potassium (Misc Panel) 3.5, POC Chloride (Misc Panel) 99, POC Total CO2 (Misc Panel) 26.0, POC Blood Urea Nitrogen (Misc Panel 15, POC Ionized Calcium (Misc Panel) 4.5, POC Creatinine (Misc Panel) 0.7, POC Hematocrit (Misc Panel) 40.0 05/12/19 14:35: Urine Color STRAW, Urine Appearance CLEAR, Urine pH 6.0, Urine Specific [place] 1.014, Urine Protein NEGATIVE, Urine Glucose (UA) NEGATIVE, Urine Ketones 1+H, Urine Blood NEGATIVE, Urine Nitrite NEGATIVE, Urine Bilirubin NEGATIVE, Urine Urobilinogen 0.2, Urine Leukocyte Esterase NEGATIVE, Urine WBC (Auto) 0, Urine RBC (Auto) 0, Urine Hyaline Casts (Auto) 0, Urine Bacteria (Auto) NEGATIVE, [place] Squamous Epithelial Cells 0, Urine Sperm (Auto) 05/13/19 05:53: Total Bilirubin 0.4, Aspartate Amino Transf (AST/SGOT) 11, Alanine Aminotransferase (ALT/SGPT) 7L, Alkaline Phosphatase 87, Total Protein 5.8#L, Albumin 2.7#L, Albumin/Globulin Ratio 0.87L, Anion Gap 8, Glomerular Filtration Rate > 60.0, Calcium Level 7.7L CBC/BMP Laboratory Tests 05/12/19 13:12 05/13/19 05:53 Microbiology Microbiology 05/12/19 Blood Culture, Received Pending 05/12/19 Blood Culture, Received Pending FRANKY MCKEON MD May 13, 2019 10:14
[2019-05-13] MEDS ORDERED: POTASSIUM CHLORIDE 10 MEQ SR TABLET PO ONE (10:30)
[2019-05-13] MEDS: KCL 10MEQ/100ML SWI (KRUN) 10 MEQ in IV 1 EA IV SCH ×2 (11:27→12:46)
[2019-05-13 14:00] VITALS: BP 122/71
[2019-05-13 22:00] VITALS: BP 122/71
[2019-05-14] MEDS: ONDANSETRON 4MG/2ML VIAL (J2405) IV PRN (01:50)
[2019-05-14 05:53] LABS: BASO % 0.3 % (0.0-1.0); EOS # 0.1 10^3/uL (0.0-0.5); EOS % 0.9 % (0.0-3.0); HEMATOCRIT 37.9 % (36.0-47.0); HEMOGLOBIN 12.4 g/dl (12.0-15.5); LYMPH # 1.1 10^3/uL (1.5-5.0); MEAN CORPUSCULAR HEMOGLOBIN 29.7 pg (27.0-33.0); MEAN CORPUSCULAR HGB CONC 32.7 g/dl (32.0-36.5); MEAN CORPUSCULAR VOLUME 90.9 fl (80.0-96.0); MONO # 0.9 10^3/uL (0.0-0.8); MONO % 13.6 % (0.0-5.0); NEUTROPHILS # 4.4 10^3/uL (1.5-8.5); NEUTROPHILS % 67.6 % (36.0-66.0); PLATELET COUNT, AUTOMATED 372 10^3/uL (150-450); RED BLOOD COUNT 4.17 10^6/uL (4.00-5.40); WHITE BLOOD COUNT 6.5 10^3/uL (4.0-10.0)
[2019-05-14] MEDS: LEVOTHYROXINE 100MCG TABLET (0.1MG) PO SCH (05:57)
[2019-05-14 06:00] VITALS: BP 120/68
[2019-05-14 06:14] LABS: BLOOD UREA NITROGEN 10 MG/DL (7-18); CALCIUM LEVEL 8.1 MG/DL (8.8-10.2); CARBON DIOXIDE LEVEL 25 MEQ/L (21-32); CHLORIDE LEVEL 108 MEQ/L (98-107); CREATININE FOR GFR 0.73 MG/DL (0.55-1.30); GLOMERULAR FILTRATION RATE > 60.0 (>39); GLUCOSE, FASTING 107 MG/DL (70-100); POTASSIUM SERUM 3.2 MEQ/L (3.5-5.1); SODIUM LEVEL 139 MEQ/L (136-145)
[2019-05-14 06:53] LABS: MAGNESIUM LEVEL 1.9 MG/DL (1.8-2.4)
[2019-05-14] MEDS: NS 1,000 ML IV SCH (08:23)
[2019-05-14] MEDS: KCL 10MEQ/100ML SWI (KRUN) 10 MEQ in IV 1 EA IV SCH ×2 (08:24→09:41)
[2019-05-14] MEDS: ENOXAPARIN 40 MG/0.4 ML SYRINGE (J1650) SC SCH (08:25)
[2019-05-14] MEDS: SENOKOT S TAB PO SCH (08:25)
[2019-05-14 09:00] VITALS: BP 124/62
--- NOTE | 2019-05-14 11:56 | IPNPDOC ---
Text Note Date of Service The patient was seen on 05/14/19. NOTE Patient seen early this morning. She has had numerous loose stools yesterday and this morning. She reports improvement of her bloating. She denies any nausea. Still appetite is down able to tolerate some oral intake. On examination she looks more comfortable. Abdomen has some residual distention but a lot softer than it was when she first came in. She is nontender on palpation Impression: Partial colonic obstruction from narrowing from diverticulosis If she is able to tolerate oral intake, suggestive sent her home on lactulose at least once every other day. I suspect she probably will need a dose of lactulose once or twice weekly to help her move her bowels. She should follow up with me closely and I told her that she still would recommend for her to undergo an e lective sigmoid colon resection to prevent recurrence of her symptoms as I do not think that the luminal narrowing will improve and she most likely will have another bout of this transient obstruction. VS,Fishbone, I+O VS, Alexbone, I+O Laboratory Tests 05/14/19 05:39 Vital Signs Date Time Temp Pulse Resp B/P (MAP) Pulse Ox O2 Delivery O2 Flow Rate FiO2 05/14/19 06:00 98.4 84 18 120/68 (85) 95 Room Air I&O- Last 24 Hours up to 6 AM 05/14/19 06:00 Intake Total 1800 ml Output Total 675 ml Balance 1125 ml MONROE BURGER MD May 14, 2019 11:56
[2019-05-14] MEDS ORDERED: LACT10SO29 PO (13:03)
[2019-05-14] MEDS ORDERED: ONDA-83 PO (13:03)
--- NOTE | 2019-05-14 13:19 | DS.PDOC ---
Discharge Summary General Date of Admission May 12, 2019 at 16:32 Date of Discharge 05/14/2019 Discharge Summary PROCEDURES PERFORMED DURING STAY: [None]. ADMITTING DIAGNOSES: 1. partial large bowel obstruction 2. hypothyroidism DISCHARGE DIAGNOSES: 1. partial large bowel obstruction 2. hypothyroidism COMPLICATIONS/CHIEF COMPLAINT: Large Bowel Obstruction. HISTORY OF PRESENT ILLNESS: Please refer to admission H&P for detailed HPI. HOSPITAL COURSE: Patient was admitted to the hospital and treated for the following conditions: 1. partial large bowel obstruction/colitis - patient admitted to medical floor, NPO on IVF, started on tap water enema's with large BM x 2. - seen by general surgery Dr. Gordon, added lactulose. - diet advanced to regular which patient has been tolerating without issue. - stable for discharge, tolerating diet, per surgery recommendations to continue lactulose every other day, outpatient follow up in surgical clinic. 2. hypothyroidism - continue synthroid. DISCHARGE MEDICATIONS: Please see below. ALLERGIES: Please see below. PHYSICAL EXAMINATION ON DISCHARGE: VITAL SIGNS: Please see below. GENERAL: awake, alert, NAD HEENT: NCAT, anicteric sclera, PERRLA NECK: supple, no JVD, no thyromegaly CARDIOVASCULAR EXAMINATION: NS1S2, regular, no murmurs/rubs/gallops RESPIRATORY EXAMINATION: CTA b/l, no wheezes/rales/rhonchi ABDOMINAL EXAMINATION: NT/ND, positive bowel sounds x 4 EXTREMITIES: no cyanosis, clubbing, edema SKIN: warm, no rashes NEUROLOGICAL EXAMINATION: AAO x 3, no focal motor/sensory deficits PSYCHIATRIC EXAMINATION: calm, cooperative, normal affect LABORATORY DATA: Please see below. IMAGING: CT A/P: Diffuse thickening of the rectosigmoid colon suggesting possible colitis. The findings are similar to the prior study of 01/26/2019. Also there is diffuse moderate dilatation of the more proximal colon as seen on the prior study. I suspect some degree of obstruction at the level of the rectosigmoid. Mild diffuse pericolonic edema. No free air or free fluid. Cystic structure of the left pelvis appears to arise from the left ovary measuring 5.2 cm in diameter. Previously this measured about 4.9 cm. Recommend further evaluation with pelvic ultrasound. PROGNOSIS: good ACTIVITY: [As tolerated]. DIET: high fiber DISPOSITION: home DISCHARGE INSTRUCTIONS: 1. Please follow up with surgery Dr. Gordon in surgery clinic in 1 week. ITEMS TO FOLLOWUP ON ON OUTPATIENT: 1. none DISCHARGE CONDITION: [Stable]. TIME SPENT ON DISCHARGE: Greater than [30] minutes. Vital Signs/I&Os Vital Signs Date Time Temp Pulse Resp B/P (MAP) Pulse Ox O2 Delivery O2 Flow Rate FiO2 05/14/19 06:00 98.4 84 18 120/68 (85) 95 Room Air I&O- Last 24 Hours up to 6 AM 05/14/19 06:00 Intake Total 1800 ml Output Total 675 ml Balance 1125 ml Laboratory Data Labs 24H Laboratory Tests 2 05/14/19 05:39: Immature Granulocyte % (Auto) 0.6, Neutrophils (%) (Auto) 67.6H, Lymphocytes (%) (Auto) 17.0L, Monocytes (%) (Auto) 13.6H, Eosinophils (%) (Auto) 0.9, Basophils (%) (Auto) 0.3, Neutrophils # (Auto) 4.4, Lymphocytes # (Auto) 1.1L, Monocytes # (Auto) 0.9H, Eosinophils # (Auto) 0.1, Basophils # (Auto) 0.0, Nucleated Red Blood Cells % (auto) 0.0, Anion Gap 6L, Glomerular Filtration Rate > 60.0, Eliu cium Level 8.1L, Magnesium Level 1.9 CBC/BMP Laboratory Tests 05/14/19 05:39 Microbiology Microbiology 05/12/19 Blood Culture - Preliminary, Resulted No growth after 24 hours . All specim... 05/12/19 Blood Culture - Preliminary, Resulted No growth after 24 hours . All specim... Discharge Medications Scheduled Aspirin (Aspirin EC) 81 Mg Tab, 81 MG PO DAILY, (Reported) Bifidobacterium Infantis (Align) 4 Mg Capsule, 4 MG PO DAILY, (Reported) Calcium Carb/Vitamin D3/Vit K1 (Viactiv 650 mg-12.5 Mcg Chew) 1 Each Tab.chew, 3 CHEW PO DAILY, (Reported) Cholecalciferol (Vitamin D3) (Vitamin D3) 1,000 Unit Tablet, 1,000 UNITS PO DAILY, (Reported) Lactulose (Lactulose) 10 Gm/15 Ml Solution, 15 ML PO [id number] Use one dose every other day Levothyroxine Sodium (Levothyroxine Sodium) 100 Mcg Tab, 100 MCG PO DAILY, (R eported) Scheduled PRN Ondansetron HCl (Ondansetron HCl) 4 Mg Tablet, 4 MG PO Q4H PRN for NAUSEA OR VOMITING Allergies Coded Allergies: No Known Allergies (Unverified , 05/23/17) FRANKY MCKEON MD May 14, 2019 13:14
[2019-05-14 14:00] VITALS: BP 92/54
[2019-05-15] MEDS ORDERED: LACTULOSE 20 GM/30 ML SYRUP UD PO SCH (09:00)
== END 2019-05-14 14:59 | disposition home or self-care (01) | DRG 386 ==
LOC: M ED 12:28 → M ED INP 16:32 → ENRESERVDT 16:58 → ENRESERVTM 16:58 → M MSPAV 17:27
PROVIDERS: ADMIT Internal Medicine; ATTEND Internal Medicine
DX: K50.112 Crohn's disease of large intestine with intestinal obstruction (principal); K56.600 Partial intestinal obstruction, unspecified as to cause; E03.9 Hypothyroidism, unspecified; Z79.82 Long term (current) use of aspirin; Z79.899 Other long term (current) drug therapy

== ENCOUNTER → 2019-05-12 | Outpatient (CLI) | payer MEDICARE, OTHER ==
[~2019-05-12] MED LIST changes: +ALIG4CAP PO; +LACT10SO29 PO; +ONDA-83 PO; +VITAD1000T PO
--- NOTE | 2019-05-12 12:07 | REP ---
REASON: Nausea. COMPARISON: 01/26/2019. Gas and stool is seen throughout the colon and in the rectosigmoid region. There is no evidence of intestinal obstruction. The intestinal gas pattern is nonspecific. It is changed little from the prior exam. This could be a colonic ileus, which needs to be correlated clinically. Electronically Signed by Waqar Felix DO 05/12/2019 01:42 P
[2019-05-12 17:44] LABS: BASO % 0.1 % (0.0-1.0); EOS # 0.1 10^3/uL (0.0-0.5); EOS % 0.8 % (0.0-3.0); HEMATOCRIT 41.4 % (36.0-47.0); HEMOGLOBIN 12.8 g/dl (12.0-15.5); LYMPH # 1.1 10^3/uL (1.5-5.0); LYMPH % 15.7 % (24.0-44.0); MEAN CORPUSCULAR HEMOGLOBIN 28.3 pg (27.0-33.0); MEAN CORPUSCULAR HGB CONC 30.9 g/dl (32.0-36.5); MEAN CORPUSCULAR VOLUME 91.6 fl (80.0-96.0); MONO # 0.6 10^3/uL (0.0-0.8); MONO % 8.1 % (0.0-5.0); NEUTROPHILS # 5.4 10^3/uL (1.5-8.5); PLATELET COUNT, AUTOMATED 399 10^3/uL (150-450); RED BLOOD COUNT 4.52 10^6/uL (4.00-5.40); WHITE BLOOD COUNT 7.2 10^3/uL (4.0-10.0)
[2019-05-12 18:05] LABS: ALBUMIN 3.5 GM/DL (3.2-5.2); ALT/SGPT 13 U/L (12-78); BILIRUBIN,TOTAL 0.6 MG/DL (0.2-1.0); BLOOD UREA NITROGEN 17 MG/DL (7-18); CALCIUM LEVEL 8.8 MG/DL (8.8-10.2); CARBON DIOXIDE LEVEL 28 MEQ/L (21-32); CHLORIDE LEVEL 100 MEQ/L (98-107); CREATININE FOR GFR 0.84 MG/DL (0.55-1.30); GLOMERULAR FILTRATION RATE > 60.0 (>39); GLUCOSE, FASTING 99 MG/DL (70-100); POTASSIUM SERUM 3.5 MEQ/L (3.5-5.1); SODIUM LEVEL 137 MEQ/L (136-145); TOTAL PROTEIN 7.5 GM/DL (6.4-8.2)
== END ==
LOC: M WUC 11:00
PROVIDERS: ATTEND Nurse Practitioner Family
DX: K59.00 Constipation, unspecified (principal); R11.0 Nausea

== ENCOUNTER 2019-05-17 14:32 | Inpatient (IN) | payer MEDICARE, OTHER ==
[~2019-05-17] VITALS: Ht 162.6 cm; Wt 66.8 kg
[~2019-05-17 14:32] MED LIST changes: +ALIG4CAP PO; +LACT10SO29 PO; +ONDA-83 PO; +VITAD1000T PO
[2019-05-17] MEDS ORDERED: NS 500 ML IV ONE (15:15)
[2019-05-17 15:17] LABS: BASO % 0.2 % (0.0-1.0); EOS # 0.1 10^3/uL (0.0-0.5); EOS % 0.7 % (0.0-3.0); HEMATOCRIT 36.9 % (36.0-47.0); HEMOGLOBIN 11.9 g/dl (12.0-15.5); LYMPH # 1.1 10^3/uL (1.5-5.0); LYMPH % 10.9 % (24.0-44.0); MEAN CORPUSCULAR HEMOGLOBIN 28.7 pg (27.0-33.0); MEAN CORPUSCULAR HGB CONC 32.2 g/dl (32.0-36.5); MEAN CORPUSCULAR VOLUME 89.1 fl (80.0-96.0); MONO # 0.7 10^3/uL (0.0-0.8); MONO % 7.5 % (0.0-5.0); NEUTROPHILS # 7.9 10^3/uL (1.5-8.5); NEUTROPHILS % 80.4 % (36.0-66.0); PLATELET COUNT, AUTOMATED 435 10^3/uL (150-450); RED BLOOD COUNT 4.14 10^6/uL (4.00-5.40); WHITE BLOOD COUNT 9.8 10^3/uL (4.0-10.0)
[2019-05-17 15:50] LABS: ALBUMIN 3.3 GM/DL (3.2-5.2); ALT/SGPT 27 U/L (12-78); BILIRUBIN,DIRECT 0.1 MG/DL (0.0-0.2); BILIRUBIN,TOTAL 0.3 MG/DL (0.2-1.0); BLOOD UREA NITROGEN 9 MG/DL (7-18); CALCIUM LEVEL 8.7 MG/DL (8.8-10.2); CARBON DIOXIDE LEVEL 32 MEQ/L (21-32); CHLORIDE LEVEL 100 MEQ/L (98-107); CREATININE FOR GFR 0.76 MG/DL (0.55-1.30); FREE T4 1.23 NG/DL (0.76-1.46); GLOMERULAR FILTRATION RATE > 60.0 (>39); GLUCOSE, FASTING 100 MG/DL (70-100); LIPASE 85 U/L (73-393); POTASSIUM SERUM 3.3 MEQ/L (3.5-5.1); SODIUM LEVEL 136 MEQ/L (136-145); TOTAL PROTEIN 7.3 GM/DL (6.4-8.2)
[2019-05-17] MEDS ORDERED: ISOVUE-370 76% 100ML VIAL (Q9967) As Ordered ONE (15:57)
[2019-05-17] MEDS ORDERED: LACTULOSE 20 GM/30 ML SYRUP UD PO SCH (16:15)
[2019-05-17] MEDS ORDERED: FLEET ENEMA PR PRN (16:15)
--- NOTE | 2019-05-17 16:27 | HPEPDOC ---
General Date of Admission 05/17/19 Date of Service: May 17, 2019 Attending Physician: URSULA DORANTES MD Chief Complaint The patient is a 73-year-old female admitted with a reason for visit of bowel obstruction Source: Patient, Old records Exam Limitations: No limitations History of Present Illness Patient is a 73-year-old female with history of hypothyroidism who presents for recurrent bowel obstruction. Patient recently discharged substitution 05/14/19 after presenting with generalized abdominal pain and constipation. Patient found to have bowel obstruction. Patient treated with lactulose and fleets enema, nothing by mouth and surgery consult. Surgery recommended possible outpatient elective surgery as patient's obstruction, resolved. Patient now presents with recurrent symptoms of constipation and mild abdominal pain. Patient states she went home, and was unable to have a bowel movement despite taking laxatives that were prescribed to her. Patient called surgeon's office and spoke to construction flagger physician who recommended mag citrate, which patient took with no relief. Patient says abdominal pain, became mildly worsened and patient called surgeon's office again on morning of admission and was recommended to do an enema. Patient did enema with no relief and decided to present to the emergency room for further evaluation and treatment. Patient endorses nausea, abdominal pain, constipation, but denies any fevers, chills, chest pain, difficulty breathing, vomiting, dysuria, diarrhea, leg pain or swelling. She was to follow with with surgery on Saturday to discuss elective surgery. Home Medications Scheduled Aspirin (Aspirin EC) 81 Mg Tab, 81 MG PO DAILY, (Reported) Bifidobacterium Infantis (Align) 4 Mg Capsule, 4 MG PO DAILY, (Reported) Calcium Carb/Vitamin D3/Vit K1 (Viactiv 650 mg-12.5 Mcg Chew) 1 Each Tab.chew, 3 CHEW PO DAILY, (Reported) Cholecalciferol (Vitamin D3) (Vitamin D3) 1,000 Unit Tablet, 1,000 UNITS PO DAILY, (Reported) Levothyroxine Sodium (Levothyroxine Sodium) 100 Mcg Tab, 100 MCG PO DAILY, (Reported) Scheduled PRN Lactulose (Lactulose) 10 Gm/15 Ml Solution, 15 ML PO Q2D PRN for CONSTIPATION, (Reported) Ondansetron HCl (Ondansetron HCl) 4 Mg Tablet, 4 MG PO Q4H PRN for NAUSEA OR VOMITING, (Reported) Allergies Coded Allergies: No Known Allergies (Unverified , 05/23/17) Past Medical History Medical History Hypothyroidism Surgical History 1. Appendectomy 2. Fertility procedure 3. Left foot bunion removal Family History Hypertension, diabetes Social History * Smoker: Denies Alcohol: occationally Drugs: denies Recent Travel/Sick Contacts: Denies: Recent travel, Recent sick contacts Psychosocial History: No pertinent psych hx A-FIB/CHADSVASC A-FIB History Current/History of A-Fib/PAF?: No Current PO Anticoag Therapy: No Review of Systems Other systems 14 point ROS reviewed and pertinent positives and negatives documented as per HPI. All other reviewed ROS negative. Physical Examination Other physical findings Well-developed, well-nourished female laying in bed in no acute distress, pleasant on interview. PERRLA, EOMI, OP clear, dry mucous membranes No lymphadenopathy. RRR, normal S1/2, no MRG appreciated. CTA B/L, W/R/R Soft, + bowel sounds, nondistended, mild tenderness to palpation lower quadrants. No edema, Intact distal pulses. No rash or skin breakdown. No focal deficits, normal speech. AO 3, appropriate Vital Signs Vital Signs Date Time Temp Pulse Resp B/P (MAP) Pulse Ox O2 Delivery O2 Flow Rate FiO2 05/17/19 14:43 05/17/19 14:33 99.6 85 16 97 Room Air Laboratory Data Labs 24H Laboratory Tests 2 05/17/19 15:08: Immature Granulocyte % (Auto) 0.3, Neutrophils (%) (Auto) 80.4H, Lymphocytes (%) (Auto) 10.9L, Monocytes (%) (Auto) 7.5H, Eosinophils (%) (Auto) 0.7, Basophils (%) (Auto) 0.2, Neutrophils # (Auto) 7.9, Lymphocytes # (Auto) 1.1L, Monocytes # (Auto) 0.7, Eosinophils # (Auto) 0.1, Basophils # (Auto) 0.0, Nucleated Red Blood Cells % (auto) 0.0, Anion Gap 4L, Glomerular Filtration Rate > 60.0, Calcium Level 8.7L, Total Bilirubin 0.3, Direct Bilirubin 0.1, Aspartate Amino Transf (AST/SGOT) 38H, Alanine Aminotransferase (ALT/SGPT) 27, Alkaline Phosphatase 108, Total Protein 7.3, Albumin 3.3, Albumin/Globulin Ratio 0.83L, Lipase 85, Thyroid Stimulating Hormone (TSH) 3.010, Free Thyroxine 1.23 CBC/BMP Laboratory Tests 05/17/19 15:08 RAD Interpretation STUDY: CT of the pelvis Rad Actions: Films Reviewed (my read: Distended loops of bowel with air- fluid levels) Assessment/Plan Patient is a 73-year-old female with history of hypothyroidism who presents for recurrent bowel obstruction versus unresolved bowel obstruction. #Recurrent bowel structured Admit to inpatient Surgery consult in AM -spoke to construction flagger surgeon, appreciate their recs Nothing by mouth Intravenous fluids Milk of Magnesia, twice a day and magnesium citrate Fleets Enema Monitor for resolution #Hypokalemia. Replete potassium. Trend K #Hypothyroidism -Continue home Synthroid DVT PPX: Lovenox Disposition: Pending surgical consult Plan / VTE VTE Prophylaxis Ordered?: Yes URSULA DORANTES MD May 17, 2019 16:27
[2019-05-17] MEDS ORDERED: ONDA-83 PO (16:50)
[2019-05-17] MEDS ORDERED: FENO145T7 PO (16:56)
[2019-05-17] MEDS ORDERED: LACT10SO29 PO (16:56)
[2019-05-17 16:57] VITALS: BP 145/79
[2019-05-17] MEDS: KCL 10MEQ/100ML SWI (KRUN) 10 MEQ in IV 1 EA IV SCH ×3 (17:29→21:51)
[2019-05-17] MEDS: NS 1,000 ML IV SCH (17:30)
[2019-05-17] MEDS ORDERED: MAGNESIUM CITRATE 300 ML BTL PO ONE (17:30)
[2019-05-17] MEDS ORDERED: ACETAMINOPHEN 650MG ER TAB (TYLENOL ARTHRITIS) PO PRN (21:45)
[2019-05-17] MEDS: ENOXAPARIN 40 MG/0.4 ML SYRINGE (J1650) SC SCH (21:51)
[2019-05-17] MEDS: ONDANSETRON 4MG/2ML VIAL (J2405) IV PRN (21:51)
[2019-05-17] MEDS: MOM 30ML SUSPENSION UDC PO SCH (21:51)
[2019-05-17 22:00] VITALS: BP 119/71
[2019-05-18] MEDS: metroNIDAZOLE 500 MG in IV 1 EA IV SCH ×3 (01:30→18:40)
[2019-05-18 06:00] VITALS: BP 123/71
[2019-05-18 06:28] LABS: BLOOD UREA NITROGEN 8 MG/DL (7-18); CALCIUM LEVEL 7.9 MG/DL (8.8-10.2); CARBON DIOXIDE LEVEL 33 MEQ/L (21-32); CHLORIDE LEVEL 103 MEQ/L (98-107); CREATININE FOR GFR 0.68 MG/DL (0.55-1.30); GLOMERULAR FILTRATION RATE > 60.0 (>39); GLUCOSE, FASTING 92 MG/DL (70-100); SODIUM LEVEL 140 MEQ/L (136-145)
--- NOTE | 2019-05-18 07:29 | REP ---
CT ABDOMEN AND PELVIS WITH IV CONTRAST: CT ABDOMEN AND PELVIS WITH CONTRAST: TECHNIQUE: Axial contrast enhanced images from the lung bases to the pubic symphysis using 100 mL Isovue 370 intravenous contrast material with multiplanar reformations. COMPARISON: 05/12/2019 Visualized lung bases are demonstrate no acute infiltrate with mild scattered fibrotic change. There are a couple of tiny cysts again seen in the liver. There is a small hiatal hernia. The spleen is unremarkable. Adrenal glands are normal. No pancreatic mass is seen. Parapelvic cysts are again seen in the left kidney. Right kidney is unremarkable. There is no abdominal aortic aneurysm. There is no adenopathy. There is no free air or free fluid. There is diffuse thickening of the rectosigmoid colon. Compatible with nonspecific colitis with surrounding streaky inflammatory change in the pericolonic fat. There are a few sigmoid diverticula present. The findings are similar to the prior study. More proximal bowel is diffusely mildly dilated. But not as distended as on the prior exam. In the left pelvis, the previously noted left ovarian cyst is again seen. Calcified fibroid is again seen in the right uterus. Urinary bladder is mildly distended and grossly unremarkable. There are degenerative changes of the spine. IMPRESSION: Once again, there is diffuse thickening of the rectosigmoid colon with pericolonic inflammation compatible with nonspecific colitis similar to the prior study. Diffuse mild distention of the more proximal bowel is noted but the distention has decreased since the prior exam of 05/12/2019. No free air or free fluid. Left ovarian cyst is unchanged. Recommend further evaluation with pelvic ultrasound. Electronically Signed by Fredy Spencer MD 05/18/2019 10:19 A
[2019-05-18] MEDS: NS 1,000 ML IV SCH (08:00)
--- NOTE | 2019-05-18 09:31 | CR.PDOC ---
General Surgery Consultation Date of Consultation 05/18/19 History and Physical CONSULT REPORT FOR: hospitalist service REASON FOR CONSULTATION: large bowel obstruction HISTORY OF PRESENT ILLNESS: Patient seen and examined. Refer to my 2 previous consult notes for details on her history. Essentially she has returned to the hospital as she is not able to initiate spontaneous bowel movements after getting home last . She was previously admitted last week with the same symptoms that she has had back in January and initially did seems to have improved or resolved with a mixture of enema and laxatives. Her initial plan is to bring her back once the covered pandemic has resolved for the elective sigmoid colon resection. During her past admission back in January was found she has a narrowed area in her sigmoid colon most likely from diverticulosis/chronic diverticulitis. She has had colonoscopy done in 2018 documenting the presence of diverticulosis. She tried on some further laxatives at home as well as an enema without any result with also increasing abdominal discomfort and distention that she presented herself back to the emergency room and subsequently was admitted. Overnight she has had a few loose stools from the antimesenteric laxatives she has gotten so far. She reports feeling fairly comfortable at the time that I saw her. Overnight she also has been having some low-grade fever of unclear significance whether this is related to the bowel obstruction or not. Her temperature has returned back to the normal range this morning. I also note that she has been placed on antibiotics. She denies any cough or colds or sputum production or recent outside travel. PAST MEDICAL HISTORY: 1. Hypothyroidism. PAST SURGICAL HISTORY: INCLUDES: 1. Appendectomy 2. Colonoscopy in November 2017 3. left bunion removal 3. Fertility procedure ALLERGIES: Please see below. HOME MEDICATIONS: Please see below. REVIEW OF SYSTEMS: As mentioned she has recently been admitted For similar symptoms. She denies any ongoing weight loss. She was noted to have a low-grade fever yesterday so she denies any prior episodes of fever. She denies nausea, vomiting, bloating. She denies dysuria or hematuria or nocturia. She is denying any chest pains, shortness of breath paroxysmal nocturnal dyspnea. PHYSICAL EXAMINATION: VITALS SIGNS: Please see below. GENERAL APPEARANCE: Patient looks comfortable in bed. She is awake, alert, oriented. She is cooperative. SKIN: Warm and dry. HEENT: [Normocephalic, atraumatic. [place] palpebral conjunctiva, anicteric sclerae. Lips and mucosa appear moist]. NECK: [Supple, no thyromegaly. No obvious jugular venous distention]. LUNGS: [Clear to auscultation bilaterally. No wheezing appreciated]. HEART: [No chest wall abnormalities. Regular rate and rhythm with no murmurs appreciated]. ABDOMEN: Abdomen is mildly distended, slightly rounded, soft, nontender on palpation. Her laparoscopic appendectomy incision. EXTREMITIES: No deformity, significant extremity edema ANCILLARIES: . LABORATORY DATA: Please see below. IMAGING STUDIES: . CT scan abdomen and pelvis Once again, there is diffuse thickening of the rectosigmoid colon with pericolonic inflammation compatible with nonspecific colitis similar to the prior study. Diffuse mild distention of the more proximal bowel is noted but the distention has decreased since the prior exam of 05/12/2019. No free air or free fluid. Left ovarian cyst is unchanged. Recommend further evaluation with pelvic ultrasound. IMPRESSION AND PLAN: Large bowel obstruction from narrowing from diverticulosis/chronic diverticulitis Unfortunately does not seem like the patient is fully resolved her obstruction and was returned days after her last discharge with a similar symptoms of the abdominal distention does not seem to be worsened. She has been having some loose stools with enema site seems like we can prep her slowly. Patient will be scheduled for sigmoid colon resection this admission either saturday or . For the mean time I will try a slow bowel prep on her to allow for further colon/bowel decompression. Vital Signs Vital Signs Date Time Temp Pulse Resp B/P (MAP) Pulse Ox O2 Delivery O2 Flow Rate FiO2 05/18/19 06:00 98.2 72 16 123/71 (88) 92 Room Air I&Os I&O- Last 24 Hours up to 6 AM 05/18/19 06:00 Intake Total 1075.5 ml Output Total 450 ml Balance 625.5 ml Laboratory Data Labs 24H Laboratory Tests 2 05/17/19 15:08: Immature Granulocyte % (Auto) 0.3, Neutrophils (%) (Auto) 80.4H, Lymphocytes (%) (Auto) 10.9L, Monocytes (%) (Auto) 7.5H, Eosinophils (%) (Auto) 0.7, Basophils (%) (Auto) 0.2, Neutrophils # (Auto) 7.9, Lymphocytes # (Auto) 1.1L, Monocytes # (Auto) 0.7, Eosinophils # (Auto) 0.1, Basophils # (Auto) 0.0, Nucleated Red Blood Cells % (auto) 0.0, Anion Gap 4L, Glomerular Filtration Rate > 60.0, Calcium Level 8.7L, Total Bilirubin 0.3, Direct Bilirubin 0.1, Aspartate Amino Transf (AST/SGOT) 38H, Alanine Aminotransferase (ALT/SGPT) 27, Alkaline Phosphatase 108, Total Protein 7.3, Albumin 3.3, Albumin/Globulin Ratio 0.83L, Lipase 85, Thyroid Stimulating Hormone (TSH) 3.010, Free Thyroxine 1.23 05/17/19 22:06: Lactic Acid Level 0.7 05/17/19 23:26: Urine Color YELLOW, Urine Appearance CLEAR, Urine pH 7.0, Urine Specific [place] 1.033, Urine Protein NEGATIVE, Urine Glucose (UA) NEGATIVE, Urine Ketones 1+H, Urine Blood NEGATIVE, Urine Nitrite NEGATIVE, Urine Bilirubin NEGATIVE, Urine Urobilinogen 0.2, Urine Leukocyte Esterase NEGATIVE, Urine WBC (Auto) 0, Urine RBC (Auto) 2, Urine Hyaline Casts (Auto) 0, Urine Bacteria (Auto) NEGATIVE, Urine Squamous Epithelial Cells 0, Urine Amorphous Sediment SMALLH, Urine Mucus (Auto) SMALL, Urine Sperm (Auto) 05/18/19 05:44: Anion Gap 4L, Glomerular Filtration Rate > 60.0, Calcium Level 7.9L CBC/BMP Laboratory Tests 05/17/19 15:08 05/18/19 05:44 Microbiology Microbiology 05/17/19 Blood Culture, Received Pending Home Medications Scheduled Aspirin (Aspirin EC) 81 Mg Tab, 81 MG PO DAILY, (Reported) Bifidobacterium Infantis (Align) 4 Mg Capsule, 4 MG PO DAILY, (Reported) Calcium Carb/Vitamin D3/Vit K1 (Viactiv 650 mg-12.5 Mcg Chew) 1 Each Tab.chew, 3 CHEW PO DAILY, (Reported) Cholecalciferol (Vitamin D3) (Vitamin D3) 1,000 Unit Tablet, 1,000 UNITS PO DAILY, (Reported) Levothyroxine Sodium (Levothyroxine Sodium) 100 Mcg Tab, 100 MCG PO DAILY, (Reported) Scheduled PRN Lactulose (Lactulose) 10 Gm/15 Ml Solution, 15 ML PO Q2D PRN for CONSTIPATION, (Reported) Ondansetron HCl (Ondansetron HCl) 4 Mg Tablet, 4 MG PO Q4H PRN for NAUSEA OR VOMITING, (Reported) Allergies Coded Allergies: No Known Allergies (Unverified , 05/23/17) MONROE BURGER MD May 18, 2019 09:31
[2019-05-18] MEDS: KCL 10MEQ/100ML SWI (KRUN) 10 MEQ in IV 1 EA IV SCH ×4 (10:00→14:04)
[2019-05-18] MEDS: MOM 30ML SUSPENSION UDC PO SCH ×2 (10:39→20:04)
[2019-05-18 14:00] VITALS: BP 148/84
--- NOTE | 2019-05-18 14:02 | IPNPDOC ---
Date Seen The patient was seen on 05/18/19. Progress Note SUBJECTIVE: Patient seen and examined at bedside. Patient feels better today but still no stools. Patient did have some dark-colored discharge but no rebecca stooling. Abdomen remains soft and nondistended. Patient denies other symptoms of fevers, chills, chest pain, difficulty breathing, nausea, vomiting, dysuria, diarrhea, leg pain or swelling. OBJECTIVE PHYSICAL EXAMINATION: VITAL SIGNS: Please see below. Well-developed, well-nourished female sitting up in bed in no acute distress RRR, normal S1/2, no MRG appreciated. CTA B/L, W/R/R Soft, + bowel sounds, nondistended, still with mild tenderness to palpation lower quadrants. No edema, Intact distal pulses. No rash or skin breakdown. No focal deficits, normal speech. AO 3, appropriate LABORATORY DATA, IMAGING STUDIES, MICROBIOLOGY: Please see below. ASSESSMENT AND PLAN: Patient is a 73-year-old female with history of hypothyroidism who presents for recurrent bowel obstruction versus unresolved bowel obstruction. Spoke to pt's s urgeon and plan to go to OR either Wed or Thurs. In the meantime pt to do slow bowel prep. #Recurrent bowel structured Admit to inpatient appreciate surgery consult clear liquid diet Intravenous fluids Milk of Magnesia, twice a day and magnesium citrate -Slow bowel prep Fleets Enema PRN -KUB tomorrow Monitor for resolution #Hypokalemia. Replete potassium as needed Trend K #Hypothyroidism -Continue home Synthroid DVT PPX: Lovenox Disposition: Pending OR wed or thurs as per surgery VS, I&O, 24H, Alexbontitus Vital Signs/I&O Vital Signs Date Time Temp Pulse Resp B/P (MAP) Pulse Ox O2 Delivery O2 Flow Rate FiO2 05/18/19 06:00 98.2 72 16 123/71 (88) 92 Room Air I&O- Last 24 Hours up to 6 AM 05/18/19 05:59 Intake Total 700.5 ml Output Total 450 ml Balance 250.5 ml Laboratory Data 24H LABS Laboratory Tests 2 05/17/19 15:08: Immature Granulocyte % (Auto) 0.3, Neutrophils (%) (Auto) 80.4H, Lymphocytes (%) (Auto) 10.9L, Monocytes (%) (Auto) 7.5H, Eosinophils (%) (Auto) 0.7, Basophils (%) (Auto) 0.2, Neutrophils # (Auto) 7.9, Lymphocytes # (Auto) 1.1L, Monocytes # (Auto) 0.7, Eosinophils # (Auto) 0.1, Basophils # (Auto) 0.0, Nucleated Red Blood Cells % (auto) 0.0, Anion Gap 4L, Glomerular Filtration Rate > 60.0, Calcium Level 8.7L, Total Bilirubin 0.3, Direct Bilirubin 0.1, Aspartate Amino Transf (AST/SGOT) 38H, Alanine Aminotransferase (ALT/SGPT) 27, Alkaline Phosphatase 108, Total Protein 7.3, Albumin 3.3, Albumin/Globulin Ratio 0.83L, Lipase 85, Thyroid Stimulating Hormone (TSH) 3.010, Free Thyroxine 1.23 05/17/19 22:06: Lactic Acid Level 0.7 05/17/19 23:26: Urine Color YELLOW, Urine Appearance CLEAR, Urine pH 7.0, Urine Specific [place] 1.033, Urine Protein NEGATIVE, Urine Glucose (UA) NEGATIVE, Urine Ketones 1+H, Urine Blood NEGATIVE, Urine Nitrite NEGATIVE, Urine Bilirubin NEGATIVE, Urine Urobilinogen 0.2, Urine Leukocyte Esterase NEGATIVE, Urine WBC (Auto) 0, Urine RBC (Auto) 2, Urine Hyaline Casts (Auto) 0, Urine Bacteria (Auto) NEGATIVE, Urine Squamous Epithelial Cells 0, Urine Amorphous Sediment SMALLH, Urine Mucus (Auto) SMALL, Urine Sperm (Auto) 05/18/19 05:44: Anion Gap 4L, Glomerular Filtration Rate > 60.0, Calcium Level 7.9L CBC/BMP Laboratory Tests 05/17/19 15:08 05/18/19 05:44 Microbiology Microbiology 05/17/19 Blood Culture, Received Pending URSULA DORANTES MD May 18, 2019 14:02
[2019-05-18] MEDS: ONDANSETRON 4MG/2ML VIAL (J2405) IV PRN ×2 (15:57→21:28)
[2019-05-18] MEDS: KCL 10MEQ/100ML SWI (KRUN) X 2 DOSES (20MEQ TOTAL) IV SCH ×4 (15:57→17:36)
[2019-05-18] MEDS ORDERED: GOLYTELY SOLN 4000 ML BTL PO ONE (17:00)
[2019-05-18] MEDS ORDERED: ACETAMINOPHEN TAB 650MG DOSE (2X325MG) PO PRN (17:30)
[2019-05-18] MEDS ORDERED: METOCLOPRAMIDE INJ 10MG/2ML VIAL (J2765) IV ONE (18:00)
[2019-05-18 18:22] LABS: BLOOD UREA NITROGEN 9 MG/DL (7-18); CALCIUM LEVEL 8.4 MG/DL (8.8-10.2); CARBON DIOXIDE LEVEL 32 MEQ/L (21-32); CHLORIDE LEVEL 103 MEQ/L (98-107); CREATININE FOR GFR 0.68 MG/DL (0.55-1.30); GLOMERULAR FILTRATION RATE > 60.0 (>39); GLUCOSE, FASTING 105 MG/DL (70-100); MAGNESIUM LEVEL 2.4 MG/DL (1.8-2.4); POTASSIUM SERUM 3.6 MEQ/L (3.5-5.1); SODIUM LEVEL 137 MEQ/L (136-145)
[2019-05-18] MEDS: ENOXAPARIN 40 MG/0.4 ML SYRINGE (J1650) SC SCH (20:05)
[2019-05-18] MEDS: CIPROFLOXACIN 400 MG in IV 1 EA IV SCH (20:05)
[2019-05-18 22:00] VITALS: BP 142/82
[2019-05-19] MEDS: metroNIDAZOLE 500 MG in IV 1 EA IV SCH ×3 (01:13→17:41)
[2019-05-19] MEDS: CIPROFLOXACIN 400 MG in IV 1 EA IV SCH ×2 (05:57→18:44)
[2019-05-19 06:00] VITALS: BP 130/65
[2019-05-19 06:17] LABS: BASO % 0.2 % (0.0-1.0); EOS # 0.1 10^3/uL (0.0-0.5); HEMATOCRIT 34.4 % (36.0-47.0); HEMOGLOBIN 11.1 g/dl (12.0-15.5); LYMPH # 1.1 10^3/uL (1.5-5.0); LYMPH % 10.7 % (24.0-44.0); MEAN CORPUSCULAR HEMOGLOBIN 28.9 pg (27.0-33.0); MEAN CORPUSCULAR HGB CONC 32.3 g/dl (32.0-36.5); MEAN CORPUSCULAR VOLUME 89.6 fl (80.0-96.0); MONO # 0.7 10^3/uL (0.0-0.8); MONO % 7.4 % (0.0-5.0); NEUTROPHILS % 80.2 % (36.0-66.0); PLATELET COUNT, AUTOMATED 443 10^3/uL (150-450); RED BLOOD COUNT 3.84 10^6/uL (4.00-5.40)
[2019-05-19] MEDS: ONDANSETRON 4MG/2ML VIAL (J2405) IV PRN ×2 (06:54→20:18)
[2019-05-19 07:01] LABS: BLOOD UREA NITROGEN 9 MG/DL (7-18); C REACTIVE PROTEIN QUANTITATIV 9.93 MG/DL (0.00-0.30); CALCIUM LEVEL 8.5 MG/DL (8.8-10.2); CARBON DIOXIDE LEVEL 30 MEQ/L (21-32); CHLORIDE LEVEL 103 MEQ/L (98-107); CREATININE FOR GFR 0.61 MG/DL (0.55-1.30); GLOMERULAR FILTRATION RATE > 60.0 (>39); GLUCOSE, FASTING 100 MG/DL (70-100); SODIUM LEVEL 136 MEQ/L (136-145)
[2019-05-19] MEDS: MOM 30ML SUSPENSION UDC PO SCH ×2 (08:28→20:17)
[2019-05-19] MEDS: KCL 40MEQ in NS 1000ML 1,000 ML IV SCH (08:34)
--- NOTE | 2019-05-19 08:42 | REP ---
KUB: TWO VIEWS. HISTORY: Partial bowel obstruction. COMPARISON STUDY: May 12, 2019. FINDINGS: The bowel gas pattern has improved but there is still mild gaseous distension of the colon from cecum to distal descending colonic segment. There are a few loops of air-filled but nondilated small bowel in the central abdomen. There is increased density in the pelvis and a uterine calcification is noted to the right of midline. IMPRESSION: Bowel gas pattern is improved with some persistent colonic gaseous distension. Electronically Signed by Washington Nichols MD 05/19/2019 10:37 A
--- NOTE | 2019-05-19 13:39 | IPNPDOC ---
Text Note Date of Service The patient was seen on 05/19/19. NOTE Patient reports that she is feeling mildly improved. She is able to pass flatus spontaneously which hasn't been able to do the past few days. She has had loose stools likewise passage of semisolid stool. She was mildly nauseated last night. She is keeping her liquids down. On examination she looks comfortable. Her abdomen just the same yesterday, still mildly distended and slightly tympanitic to percussion. There is no focal area of tenderness on examination Impression and plans Large bowel obstruction probably secondary to colonic narrowing from diverticulosis/chronic diverticulitis patient is scheduled for sigmoid colon resection on morning. We will attempt a robotic assisted laparoscopic sigmoidectomy with or without anastomosis and may need a diversion. I have discussed the rationale for diverting following anastomosis with her which she may need. For the mean time, we will continue a slow bowel prep. I have instructed her to make sure she drinks the ensure to supplement her protein intake as she has not been able to eat well for at least 2 weeks despite no acutal weight loss reported. VS,Fishbone, I+O VS, Fishbone, I+O Laboratory Tests 05/18/19 17:39 05/19/19 05:47 Vital Signs Date Time Temp Pulse Resp B/P (MAP) Pulse Ox O2 Delivery O2 Flow Rate FiO2 05/19/19 06:00 98.1 72 16 130/65 (86) 95 Room Air I&O- Last 24 Hours up to 6 AM 05/19/19 05:59 Intake Total 2345 ml Output Total 30 ml Balance 2315 ml MONROE BURGER MD May 19, 2019 13:39
[2019-05-19 14:00] VITALS: BP 151/82
--- NOTE | 2019-05-19 16:11 | IPNPDOC ---
Text Note Date of Service The patient was seen on 05/19/19. NOTE SUBJECTIVE: Patient seen and examined at bedside. Feels that her abdomen is a little less distended. Did have a small soft stool and rest of it is watery. Has some pain in the suprapubic area on palpation there. Had 100.4 temp last night. OBJECTIVE PHYSICAL EXAMINATION: VITAL SIGNS: Please see below. General: Well-developed, well-nourished female sitting up in bed in no acute distress Cardiovascular: RRR, normal S1/2, no MRG appreciated. Chest: CTA B/L, W/R/R Abdomen: Soft, + bowel sounds, nondistended, still with mild tenderness to deep palpation in the suprapubic area. No edema, Intact distal pulses. No rash or skin breakdown. No focal deficits, normal speech. AO 3, appropriate LABORATORY DATA, IMAGING STUDIES, MICROBIOLOGY: Please see below. ASSESSMENT AND PLAN: Patient is a 73-year-old female with history of hypothyroidism who presents for recurrent bowel obstruction versus unresolved bowel obstruction. Spoke to pt's surgeon and plan to go to OR either Sat or . In the meantime pt to do slow bowel prep. Recurrent large bowel obstruction appreciate surgery consult clear liquid diet Intravenous fluids Milk of Magnesia, twice a day and magnesium citrate Slow bowel prep Fleets Enema PRN Probable Acute on Chronic diverticulitis due to fever, persistent pain, elevated WBC and Elevated crp continue cipro and flagyl Hypokalemia. Replete potassium as needed Trend K Hypothyroidism Continue home Synthroid DVT PPX: Lovenox VS,Fishbone, I+O VS, Fishbone, I+O Laboratory Tests 05/18/19 17:39 05/19/19 05:47 Vital Signs Date Time Temp Pulse Resp B/P (MAP) Pulse Ox O2 Delivery O2 Flow Rate FiO2 05/19/19 14:00 98.0 82 12 151/82 (105) 97 Room Air I&O- Last 24 Hours up to 6 AM 05/19/19 06:00 Intake Total 2465 ml Output Total 30 ml Balance 2435 ml ALANIS LOAIZA MD May 19, 2019 16:11
[2019-05-19] MEDS ORDERED: GOLYTELY SOLN 4000 ML BTL PO ONE (18:00)
[2019-05-19] MEDS: ENOXAPARIN 40 MG/0.4 ML SYRINGE (J1650) SC SCH (20:17)
[2019-05-19 22:00] VITALS: BP 146/81
[2019-05-20] MEDS: metroNIDAZOLE 500 MG in IV 1 EA IV SCH ×3 (01:10→16:47)
[2019-05-20] MEDS: ONDANSETRON 4MG/2ML VIAL (J2405) IV PRN ×3 (01:10→15:12)
[2019-05-20] MEDS: KCL 40MEQ in NS 1000ML 1,000 ML IV SCH ×3 (02:42→21:29)
[2019-05-20] MEDS: CIPROFLOXACIN 400 MG in IV 1 EA IV SCH ×2 (05:44→18:25)
[2019-05-20 06:00] VITALS: BP 143/80
[2019-05-20 06:00] LABS: HEMOGLOBIN 11.2 g/dl (12.0-15.5); MEAN CORPUSCULAR HEMOGLOBIN 28.8 pg (27.0-33.0); PLATELET COUNT, AUTOMATED 479 10^3/uL (150-450); RED BLOOD COUNT 3.89 10^6/uL (4.00-5.40); WHITE BLOOD COUNT 7.9 10^3/uL (4.0-10.0)
[2019-05-20 08:52] LABS: BLOOD UREA NITROGEN 6 MG/DL (7-18); CALCIUM LEVEL 7.8 MG/DL (8.8-10.2); CARBON DIOXIDE LEVEL 27 MEQ/L (21-32); CHLORIDE LEVEL 107 MEQ/L (98-107); CREATININE FOR GFR 0.53 MG/DL (0.55-1.30); GLOMERULAR FILTRATION RATE > 60.0 (>39); GLUCOSE, FASTING 104 MG/DL (70-100); POTASSIUM SERUM 3.6 MEQ/L (3.5-5.1); SODIUM LEVEL 141 MEQ/L (136-145)
[2019-05-20] MEDS: MOM 30ML SUSPENSION UDC PO SCH ×2 (08:59→21:28)
--- NOTE | 2019-05-20 10:58 | IPNPDOC ---
Text Note Date of Service The patient was seen on 05/20/19. NOTE Patient reports waking up with some nausea earlier this morning likewise yeste rday, late afternoon which resolved with Zofran. She struggled to drink the PEG that is using for slow prep on her and this did not seem to have the intended effect this time around. She reports minimal flatus only and small amount of greenish liquid stool leakage. On examination, Patient still looks comfortable. Lungs sounds are clear to auscultation bilaterally without any increased respiratory effort or wheezing Patient is regular heart rate and rhythm without murmurs Abdomen still seems about the same, maybe a tad more distended than yesterday, tympanitic to percussion and slight hyperactive bowel sounds. She has no tenderness on palpation Impression and plan Large bowel obstruction presumed to be secondarily to the chronic diverticulitis/luminal narrowing from diverticulosis Patient is scheduled for sigmoid colectomy tomorrow. Obtained consent for the procedure after explaining to her the details of the procedure, expected risks and benefits and the critical factors that I would consider doing the surgery including the need for protective diverting ileostomy. She she remains to be without leukocytosis. She has some mild thrombocytosis. She had a prior blood culture which is positive for staph epidermidis 1/2. This probably is a contaminant though at that time she was hav ing some low-grade fever which is no longer present. I'll give her a dose of Invanz tomorrow for the upcoming surgery. She did not tolerate the PEG I will give her some combination of mag citrate and Fleet's enema as well as oral antibiotics. VS,Fishbone, I+O VS, Fishbone, I+O Laboratory Tests 05/20/19 05:22 05/20/19 05:27 Vital Signs Date Time Temp Pulse Resp B/P (MAP) Pulse Ox O2 Delivery O2 Flow Rate FiO2 05/20/19 06:00 98.2 78 17 143/80 (101) 93 Room Air I&O- Last 24 Hours up to 6 AM 05/20/19 06:00 Intake Total 3595 ml Output Total 1051 ml Balance 2544 ml MONROE BURGER MD May 20, 2019 10:58
--- NOTE | 2019-05-20 12:32 | IPNPDOC ---
Text Note Date of Service The patient was seen on 05/20/19. NOTE SUBJECTIVE: Patient seen and examined at bedside. No fevers in the last 24 ho urs. Had several bowel movements mostly watery. Denies any abdominal pain but continues ot have abdominal distension and nausea. OBJECTIVE PHYSICAL EXAMINATION: VITAL SIGNS: Please see below. General: Well-developed, well-nourished female sitting up in bed in no acute distress Cardiovascular: RRR, normal S1/2, no MRG appreciated. Chest: CTA B/L, W/R/R Abdomen: Soft, + bowel sounds, nondistended, still with mild tenderness to deep palpation in the suprapubic area. No edema, Intact distal pulses. No rash or skin breakdown. No focal deficits, normal speech. AO 3, appropriate LABORATORY DATA, IMAGING STUDIES, MICROBIOLOGY: Please see below. ASSESSMENT AND PLAN: Patient is a 73-year-old female with history of hypothyroidism who presents for recurrent bowel obstruction versus unresolved bowel obstruction. Spoke to pt's surgeon and plan to go to OR on 05/21/19. In the meantime pt to do slow bowel prep. Recurrent large bowel obstruction Probably from chronic diverticulitis. appreciate surgery consult clear liquid diet Intravenous fluids Milk of Magnesia, twice a day and magnesium citrate Slow bowel prep Fleets Enema PRN Probable Acute on Chronic diverticulitis due to fever, persistent pain, elevated WBC and Elevated crp continue cipro and flagyl Hypokalemia. Replete potassium as needed Trend K Hypothyroidism Continue home Synthroid DVT PPX: Lovenox VS,Fishbone, I+O VS, Fishbone, I+O Laboratory Tests 05/20/19 05:27 Vital Signs Date Time Temp Pulse Resp B/P (MAP) Pulse Ox O2 Delivery O2 Flow Rate FiO2 05/20/19 06:00 98.2 78 17 143/80 (101) 93 Room Air I&O- Last 24 Hours up to 6 AM 05/20/19 06:00 Intake Total 3595 ml Output Total 1051 ml Balance 2544 ml ALANIS LOAIZA MD May 20, 2019 08:16
[2019-05-20 14:00] VITALS: BP 141/79
[2019-05-20] MEDS: NEOMYCIN SULFATE 500 MG TAB PO SCH ×3 (14:12→21:28)
[2019-05-20] MEDS ORDERED: PROMETHAZINE INJ 25 MG/ML VIAL (J2550) IV PRN (16:45)
[2019-05-20] MEDS ORDERED: FLEET ENEMA PR ONE (21:00)
[2019-05-20] MEDS: ENOXAPARIN 40 MG/0.4 ML SYRINGE (J1650) SC SCH (21:28)
[2019-05-20 22:00] VITALS: BP 143/76
[2019-05-21] MEDS: metroNIDAZOLE 500 MG in IV 1 EA IV SCH ×2 (02:15→18:45)
[2019-05-21] MEDS ORDERED: FLEET ENEMA PR ONE (05:00)
[2019-05-21 06:00] VITALS: BP 141/78
[2019-05-21] MEDS ORDERED: MIDAZOLAM INJ 2 MG/2 ML VIAL (J2250) As Ordered ONE (06:55)
[2019-05-21] MEDS ORDERED: fentaNYL 250 MCG/5 ML INJECTION (J3010) As Ordered ONE (06:56)
[2019-05-21] MEDS ORDERED: dexameTHASONE 4 MG/ML 1ML VIAL (J1100 PER 1MG) As Ordered ONE ×2 (06:57→14:43)
[2019-05-21] MEDS ORDERED: ePHEDrine SULFATE 25 MG/5 ML(5MG/ML) SYRINGE As Ordered ONE ×2 (06:57→15:30)
[2019-05-21] MEDS ORDERED: ACETAMINOPHEN 1000MG 100ML IV BTL (OFIRMEV) (J0131 PER 10MG) As Ordered ONE (06:57)
[2019-05-21] MEDS ORDERED: ROCURONIUM BROMIDE 50 MG/5 ML VIAL As Ordered ONE ×4 (06:57→13:57)
[2019-05-21] MEDS ORDERED: ONDANSETRON 4MG/2ML VIAL (J2405) As Ordered ONE (06:57)
[2019-05-21] MEDS ORDERED: LIDOCAINE 2% INJ 100 MG/5 ML SDV (FOR ANES.) As Ordered ONE (06:57)
[2019-05-21] MEDS ORDERED: propofoL 200 MG/20 ML VIAL As Ordered ONE (06:57)
[2019-05-21] MEDS ORDERED: PHENYLephrine HCL 500 MCG/5 ML (100MCG/ML) SYRINGE (J2370) As Ordered ONE ×3 (06:57→15:30)
[2019-05-21] MEDS ORDERED: SUGAMMADEX SODIUM 500 MG/5 ML VIAL (BRIDION) As Ordered ONE (06:57)
[2019-05-21] MEDS ORDERED: ERTAPENEM SODIUM 1 GM in NS MINI-BAG PLUS 50 ML IV ONE (07:00)
[2019-05-21 07:02] VITALS: BP 155/92
[2019-05-21 07:19] LABS: BASO % 0.3 % (0.0-1.0); EOS # 0.2 10^3/uL (0.0-0.5); EOS % 3.1 % (0.0-3.0); HEMOGLOBIN 12.4 g/dl (12.0-15.5); LYMPH # 1.6 10^3/uL (1.5-5.0); LYMPH % 22.3 % (24.0-44.0); MEAN CORPUSCULAR HEMOGLOBIN 28.6 pg (27.0-33.0); MEAN CORPUSCULAR HGB CONC 31.8 g/dl (32.0-36.5); MEAN CORPUSCULAR VOLUME 90.1 fl (80.0-96.0); MONO # 0.7 10^3/uL (0.0-0.8); MONO % 9.7 % (0.0-5.0); NEUTROPHILS # 4.5 10^3/uL (1.5-8.5); NEUTROPHILS % 64.2 % (36.0-66.0); PLATELET COUNT, AUTOMATED 642 10^3/uL (150-450); RED BLOOD COUNT 4.33 10^6/uL (4.00-5.40)
[2019-05-21 07:44] LABS: BLOOD UREA NITROGEN 3 MG/DL (7-18); CALCIUM LEVEL 8.6 MG/DL (8.8-10.2); CARBON DIOXIDE LEVEL 30 MEQ/L (21-32); CHLORIDE LEVEL 105 MEQ/L (98-107); CREATININE FOR GFR 0.73 MG/DL (0.55-1.30); GLOMERULAR FILTRATION RATE > 60.0 (>39); GLUCOSE, FASTING 92 MG/DL (70-100); POTASSIUM SERUM 3.6 MEQ/L (3.5-5.1); SODIUM LEVEL 140 MEQ/L (136-145)
[2019-05-21] MEDS: MOM 30ML SUSPENSION UDC PO SCH (08:03)
--- NOTE | 2019-05-21 08:06 | IPNPDOC ---
Text Note Date of Service The patient was seen on 05/21/19. NOTE Patient seen in the preoperative holding area. She had episodes of nausea yest erday. She reports this morning when she woke up she felt fine. No nausea. She had a small amount of stool come out following fleets enema but little flatus only. She has been afebrile. On exam she looks comfortable Lungs are clear to ausculation Regular heart rate and rhythm Abdomen looks flat, a lot of softer today. Nontender on palpation Impression/Plans: large bowel obstruction from civerticulosis, chronic diverticulitis Patient is for sigmoid colon resection +/- diversiion today. I have reviewed with her our plans for robotic assisted lap sigmoidectomy. VS,Kyung, I+O VS, Kyung, I+O Laboratory Tests 05/21/19 06:57 Vital Signs Date Time Temp Pulse Resp B/P (MAP) Pulse Ox O2 Delivery O2 Flow Rate FiO2 05/21/19 07:02 98.2 93 18 155/92 (113) 97 Room Air I&O- Last 24 Hours up to 6 AM 05/21/19 06:00 Intake Total 3393 ml Output Total 450 ml Balance 2943 ml MONROE BURGER MD May 21, 2019 08:06
[2019-05-21] MEDS ORDERED: BUPIVACAINE HCL 0.25% 10ML VIAL As Ordered ONE (08:10)
[2019-05-21] MEDS ORDERED: LIDOCAINE 1% SDV INJ 30 ML VIAL As Ordered ONE (08:10)
[2019-05-21] MEDS ORDERED: BUPIVACAINE LIPOSOME/PF 1.3% 20ML VIAL (13.3MG/ML)(EXPAREL)(C9290 PER1MG) As Ordered ONE (08:11)
[2019-05-21] MEDS ORDERED: BUPIVACAINE HCL 0.25% 30ML VIAL As Ordered ONE (08:11)
[2019-05-21] MEDS ORDERED: HYDROmorphone HCL 2 MG/ML 1ML VIAL (J1170) As Ordered ONE (10:16)
[2019-05-21] MEDS: KCL 40MEQ in NS 1000ML 1,000 ML IV SCH (13:16)
[2019-05-21 16:30] VITALS: BP 134/73
[2019-05-21 17:00] VITALS: BP 137/69
[2019-05-21] MEDS ORDERED: PERCOCET 5MG/325MG TAB PO PRN ×2 (17:15)
[2019-05-21] MEDS ORDERED: MORPHINE 10 MG/ML 1ML VIAL (J2270) IV PRN (17:15)
[2019-05-21] MEDS ORDERED: ONDANSETRON 4MG/2ML VIAL (J2405) IV PRN (17:45)
[2019-05-21] MEDS ORDERED: fentaNYL 100 MCG/2 ML INJECTION (J3010) IV PRN (17:45)
[2019-05-21] MEDS ORDERED: LR 1,000 ML IV SCH (17:45)
[2019-05-21] MEDS ORDERED: oxyCODONE 5MG TAB PO PRN (17:45)
[2019-05-21] MEDS ORDERED: ACETAMINOPHEN *IV* 1,000 MG in APPROPRIATE DILUENT 0 ML IV SCH (18:00)
[2019-05-21] MEDS: ONDANSETRON 4MG/2ML VIAL (J2405) IV PRN (18:05)
[2019-05-21] MEDS: KETOROLAC 30 MG/ML VIAL (J1885) IV SCH (18:46)
[2019-05-21] MEDS: CIPROFLOXACIN 400 MG in IV 1 EA IV SCH (19:36)
[2019-05-21 20:58] VITALS: BP 129/67
[2019-05-21 21:48] VITALS: BP 130/70
[2019-05-21] MEDS: ALVIMOPAN 12 MG CAPSULE (ENTEREG) PO SCH (22:10)
[2019-05-21] MEDS: ENOXAPARIN 40 MG/0.4 ML SYRINGE (J1650) SC SCH (22:10)
[2019-05-22] VITALS (7 sets, daily range): BP systolic 107–139; BP diastolic 54–72; O2SAT 95
[2019-05-22] MEDS: metroNIDAZOLE 500 MG in IV 1 EA IV SCH ×3 (00:48→16:16)
[2019-05-22] MEDS: KETOROLAC 30 MG/ML VIAL (J1885) IV SCH ×5 (00:48→22:53)
[2019-05-22] MEDS: CIPROFLOXACIN 400 MG in IV 1 EA IV SCH ×2 (06:04→17:11)
[2019-05-22] MEDS: KCL 40MEQ in NS 1000ML 1,000 ML IV SCH ×2 (06:06→13:27)
[2019-05-22 06:13] LABS: BASO % 0.1 % (0.0-1.0); HEMATOCRIT 28.7 % (36.0-47.0); LYMPH % 10.5 % (24.0-44.0); MEAN CORPUSCULAR HEMOGLOBIN 28.8 pg (27.0-33.0); MEAN CORPUSCULAR HGB CONC 31.7 g/dl (32.0-36.5); MEAN CORPUSCULAR VOLUME 90.8 fl (80.0-96.0); MONO # 0.9 10^3/uL (0.0-0.8); MONO % 9.4 % (0.0-5.0); NEUTROPHILS # 7.8 10^3/uL (1.5-8.5); NEUTROPHILS % 79.5 % (36.0-66.0); PLATELET COUNT, AUTOMATED 499 10^3/uL (150-450); RED BLOOD COUNT 3.16 10^6/uL (4.00-5.40); WHITE BLOOD COUNT 9.8 10^3/uL (4.0-10.0)
[2019-05-22 06:20] LABS: HEMOGLOBIN 9.1 g/dl (12.0-15.5)
[2019-05-22 06:32] LABS: BLOOD UREA NITROGEN 5 MG/DL (7-18); CALCIUM LEVEL 7.9 MG/DL (8.8-10.2); CARBON DIOXIDE LEVEL 29 MEQ/L (21-32); CHLORIDE LEVEL 109 MEQ/L (98-107); CREATININE FOR GFR 0.58 MG/DL (0.55-1.30); GLOMERULAR FILTRATION RATE > 60.0 (>39); GLUCOSE, FASTING 109 MG/DL (70-100); POTASSIUM SERUM 4.2 MEQ/L (3.5-5.1); SODIUM LEVEL 141 MEQ/L (136-145)
[2019-05-22] MEDS: ALVIMOPAN 12 MG CAPSULE (ENTEREG) PO SCH ×2 (08:35→20:19)
--- NOTE | 2019-05-22 10:28 | IPNPDOC ---
Subjective General Date/Time Seen The patient was seen on 05/22/19 at 10:26. Subject Chief Complaint/History Patient seen laying on her bed, awake and looks very comfortable. No acute events noted overnight. Perioperatively she is hemodynamically stable. Her sats are in normal between 95-100% at 2 L nasal cannula. She is afebrile perioperatively. She reports minimal discomfort at the abdomen without any cramping. The ileostomy has minimal amount of air and green bilious fluid. Current Medications Current Medications Current Medications Medications (Trade) Dose Ordered Sig/Marianna Route PRN Reason Start Time Stop Time Status Last Admin Dose Admin Acetaminophen (Tylenol Arthritis Er) 1,300 mg Q8HP PRN PO PAIN 05/17/19 21:45 05/18/19 17:21 DC 05/18/19 00:39 Acetaminophen (Tylenol Tab) 650 mg Q6HP PRN PO PAIN / FEVER 05/18/19 17:30 05/18/19 17:35 Acetaminophen 1000 mg/IV Miscellaneous Supplies 100 ml @ 400 mls/hr ASDIRECTED IV 05/21/19 18:00 05/21/19 18:14 DC Alvimopan (Entereg) 12 mg BID PO 05/21/19 21:00 05/26/19 20:59 05/22/19 08:35 Ciprofloxacin 400 mg/IV Miscellaneous Supplies 200 ml @ 200 mls/hr Q12H IV 05/18/19 18:00 05/22/19 06:04 Enoxaparin Sodium (Lovenox) 40 mg QHS SC 05/17/19 21:00 05/21/19 22:10 Fentanyl Citrate (Sublimaze) 25 mcg Q5MP PRN IV PAIN LEVEL 5-10 05/21/19 17:45 05/21/19 18:45 DC Home Med (Med Rec Complete!) ASDIRECTED XX 05/17/19 17:00 05/17/19 17:12 DC Ketorolac Tromethamine (ToRADol) 15 mg Q6H IV 05/21/19 18:00 05/26/19 17:59 05/22/19 06:04 Lactated Ringer's 1,000 ml @ 100 mls/hr Q10H IV 05/21/19 17:45 05/21/19 18:45 DC Lactulose (Cephulac) 30 ml BID PO 05/17/19 16:15 05/17/19 17:06 DC Magnesium Hydroxide (Milk Of Magnesia) 30 ml BID PO 05/17/19 21:00 05/21/19 17:14 DC 05/20/19 21:28 Metronidazole 500 mg/IV Miscellaneous Supplies 100 ml @ 100 mls/hr Q8H IV 05/18/19 01:00 05/22/19 08:35 Morphine Sulfate (Morphine Sulfate Inj) 5 mg Q4HP PRN IV SEVERE PAIN (PS 8-10) 05/21/19 17:15 Neomycin Sulfate (Mycifradin) 1,000 mg TID@1400,1500,2200 PO 05/20/19 14:00 05/20/19 22:01 DC 05/20/19 21:28 Ondansetron HCl (ZOFRAN INJection) 2 mg Q4HP PRN IV NAUSEA OR VOMITING 05/17/19 21:45 05/20/19 16:50 DC 05/20/19 15:12 Ondansetron HCl (ZOFRAN INJection) 4 mg Q4HP PRN IV NAUSEA OR VOMITING 05/20/19 17:00 05/21/19 18:05 Ondansetron HCl (ZOFRAN INJection) 4 mg Q4HP PRN IV NAUSEA OR VOMITING 05/21/19 17:45 05/21/19 18:45 DC Oxycodone HCl (Roxicodone, Oxyir) 5 mg ASDIRECTED PRN PO PAIN LEVEL 1-4 05/21/19 17:45 05/21/19 18:45 DC Oxycodone/ Acetaminophen (Percocet 5mg/ 325mg Tablet) 1 tab Q4HP PRN PO MILD/MODERATE PAIN (PS 1-7) 05/21/19 17:15 Oxycodone/ Acetaminophen (Percocet 5mg/ 325mg Tablet) 2 tab Q6HP PRN PO SEVERE PAIN (PS 8-10) 05/21/19 17:15 Potassium Chloride 10 meq/ IV Miscellaneous Supplies 100 ml @ 100 mls/hr Q1H IV 05/17/19 18:00 05/17/19 20:59 DC 05/17/19 21:51 Potassium Chloride 10 meq/ IV Miscellaneous Supplies 100 ml @ 100 mls/hr Q1H IV 05/18/19 08:00 05/18/19 11:59 DC 05/18/19 14:04 Potassium Chloride 10 meq/ IV Miscellaneous Supplies 100 ml @ 100 mls/hr Q1H IV 05/18/19 16:00 05/18/19 18:00 DC 05/18/19 17:36 Potassium Chloride/Sodium Chloride 1,000 ml @ 75 mls/hr [id number] IV 05/19/19 07:56 05/22/19 06:06 Promethazine HCl (PHENERGAN INJection) 12.5 mg Q8HP PRN IV NAUSEA 05/20/19 16:45 05/20/19 16:47 Sodium Biphosphate/ Sodium Phosphate (Fleet Enema) 1 ea DAILYPRN PRN ME CONSTIPATION 05/17/19 16:15 05/21/19 17:14 DC Sodium Chloride 1,000 ml @ 75 mls/hr [id number] IV 05/17/19 17:30 05/19/19 07:57 DC 05/18/19 08:00 Allergies Coded Allergies: No Known Allergies (Unverified , 05/23/17) Objective Physical Examination Examination GENERAL APPEARANCE: Patient looks overall comfortable. SKIN: Warm and dry. HEENT: Lips are mildly dry. NECK: Supple, no thyromegaly. No obvious jugular venous distention. LUNGS: Clear to auscultation bilaterally. No wheezing appreciated. HEART: No chest wall abnormalities. Regular rate and rhythm with no murmurs appreciated. ABDOMEN: Abdomen is minimally distended, round, soft, she has 4 port site incisions that are covered with Dermabond along with a short 4 cm Pfannenstiel incision. She has a right-sided ileostomy with a small amount of air and enteric content coming out from it. The ileostomy itself appears healthy. Mild discomfort around the incisions and then instill incision on palpation without any rebound or guarding. EXTREMITIES: No lower extremity edema. Vital Signs Vital Signs Date Time Temp Pulse Resp B/P (MAP) Pulse Ox O2 Delivery O2 Flow Rate FiO2 05/22/19 08:59 95 Room Air 05/22/19 06:12 96.5 90 20 133/70 (91) 2.0 I&Os I&O- Last 24 Hours up to 6 AM 05/22/19 06:00 Intake Total 5085 ml Output Total 850 ml Balance 4235 ml Laboratory Data Labs 24H Laboratory Tests 2 05/22/19 05:38: Immature Granulocyte % (Auto) 0.5, Neutrophils (%) (Auto) 79.5H, Lymphocytes (%) (Auto) 10.5L, Monocytes (%) (Auto) 9.4H, Eosinophils (%) (Auto) 0.0, Basophils (%) (Auto) 0.1, Neutrophils # (Auto) 7.8, Lymphocytes # (Auto) 1.0L, Monocytes # (Auto) 0.9H, Eosinophils # (Auto) 0.0, Basophils # (Auto) 0.0, Nucleated Red Blood Cells % (auto) 0.0, Anion Gap 3L, Glomerular Filtration Rate > 60.0, Calcium Level 7.9L CBC/BMP Laboratory Tests 05/22/19 05:38 Microbiology Microbiology 05/18/19 Blood Culture - Preliminary, Resulted No Growth after 72 hours. All specime... 05/17/19 Blood Culture - Final, Complete Staphylococcus Epidermidis Impression POD1 Robotic Assisted Laparoscopic Sigmoid colectomy with anastomosis with diverting ileostomy for large obstruction at the rectogismoid from chronic diverticulitis Over all doing very well. Adequate pain control. I discussed with her the intraoperative findings including that of a large ovarian cyst that I removed. The surgery itself took over 8 hours to perform due to the amount of chronic inflammation, fibrosis the in the pelvis and I had to come through to the middle of the rectum to get to healthy tissues. Anastomosis was made and this was protected with a diverting ileostomy. Incidental finding includes a large ovarian cyst but this is not the cause of the obstruction. An intraoperative consult with Dr. Hernandez ([employer] Operator) was made and with his guidance I did a left ovarian cystectomy and left oophorectomy. I have started her on clear liquids last night and so far she is tolerating this though intake is minimal she slept mostly last night. D/C toni I instructed her to ambulate the hallways Start ileostomy care teaching. Advance to soft diet I think she is still on the dry side and will keep her IVF. Plan / VTE VTE Prophylaxis Ordered?: Yes Plan / Urinary Catheter Urinary Catheter: D/C MONROE Zaldivar MD May 22, 2019 10:28
--- NOTE | 2019-05-22 11:06 | ROOPDOC ---
[facility] Report Of Operation Report of Operation DATE OF PROCEDURE: 05/22/19 PREPROCEDURE DIAGNOSES: Large bowel obstruction at the level of the rectosigmoid from diverticulosis/chronic diverticulitis. POSTPROCEDURE DIAGNOSES: Chronic diverticulitis with obstruction at the rectosigmoid, large left ovarian cyst (4 cm). PROCEDURE: Robotic-assisted laparoscopic rectosigmoid resection with proctocolic anastomosis and diverting ileostomy, left ovarian cystectomy/oophorectomy, bila teral TAP block with Exparel/Marcaine under laparoscopic guidance. SURGEON: Gerardo Gordon MD [employer] BUSINESS DEVELOPMENT OFFICER: Joon Cornejo MD assisted me during the portion of the procedure for the rectal resection, anastomosis, , extraction, and placement of ileostomy : Monserrat Niño NP acted as my bedside rehab care assistant throughout the case and is present during port placement, instrument exchange, on the field omanipulation of the robotic arms to control for collisions. : intraoperative consult to Dr. Hernandez regarding the management of the left ovarian cyst. ANESTHESIA: General Anesthesia. ESTIMATED BLOOD LOSS: Approximately 100 mL. COMPLICATIONS: none. PROCEDURE NOTE: Dilated colon up to the distal sigmoid where there is some chronic appearing fibrotic reaction to the colon and its mesentery which is firmly fixed. There is hardening of the wall of the distal sigmoid colon. The sigmoid colon takes several acute turns within the pelvis. There is a small amount of pericolic abscess within the mesentery that was freed up. The fibrotic/inflammatory reaction involves the proximal rectum. There is a large roughly 4-5 cm ovarian cyst on the left side which was incidentally found and removed. An intraoperative consult with Dr. Hernandez was made and an oopore ctomy/ovarian cystectomy was performed. DESCRIPTION OF PROCEDURE: Patient received Invanz 1 gm IV preoperatively for wound prophylaxis. She received 40 mg of Lovenox subcutaneously for DVT prophylaxis. She was unable to tolerate an oral prep due to nausea but she did take neomycin and scheduled doses as part of the prep. She was getting ciprofloxacin and metronidazole IV for presumed diverticulitis during this admission. Patient was placed on the operating room table. Compression boots and Leon's were placed for further DVT prophylaxis. Gen. endotracheal anesthesia started. She is then placed on lithotomy position. A Tucker catheter was placed for intraoperative monitoring. Her abdomen and perineum is then adequately prepped and draped. .We paused for a surgical timeout using both pre-incision safety checklist to verify correct patient, procedure site and additional clinical information prior to beginning the procedure. I initially entered the abdomen a couple of cms above her umbilicus via a Veress needle intra-abdominally placement was confirmed with saline drop technique. CO2 insufflation started to pressure 15 mmHg. Using the same incision an 8 mm robotic trocar was placed under direct vision of a 5mm laparoscope. The area underneath the insertion site was inspected for injury and none was found. An initial diagnostic laparoscopy was performed. Most of the intra-abdominal space revealed with dilated colon but on initial inspection the dilation was seen past the sigmoid colon which appears healthy. She was placed on the steep Trendelenburg position at about 20, with the left side tilted upwards about another 8. The robotic trochars were placed roughly about a fist apart with the 12 mm stapler trocar 2 cm medial to the level of the right ASIS and the l eft-sided ports stacked up obliquely towards the right upper quadrant area. A 5 mm assist port was placed in between the umbilical and right lower quadrant port. There was some omental adhesions just above the falciform ligament that had to take down to make space for the left-sided ports. The da Cindy robot tower is then maneuvered into place with the patient's right side and the trochars were docked onto the robotic arms. The robotic instruments were placed into view. An 8 mm 30 laparoscope, tips of fenestrated grasper, force bipolar forceps and initially laparoscopic scissors connected to a monopolar cautery and then later on vessel sealer was used and 60 mm sure form stapler with a green load was used. I then scrubbed to control of the camera and instruments at the surgeon's console while my rehab care assistant remains in the field managing the robot, instruments, arms and retraction. The small bowel was retracted out of view. The mid and distal sigmoid seems hard and fibrotic and its position was fairly fixed within the pelvis and unable to be retracted out to the pelvic inlet. There is also a large cystic structure (roughly about 4-5 cms) that is pushing on the mesentery of the sigmoid mesentery medially and occupying a space precluding view of the pelvis, that initially I thought this may be within the mesentery but on further examination and dissection was noted to be coming off the left ovary. I started my colon dissection by freeing up the lateral attachments of the sigmoid colon along the left gutter and the peritoneal reflection of the sigmoid mesentery off the pelvic side wall to identify the course of the left ovary. After medially reflecting the sigmoid colon, it became obvious that the large cyst is coming off from the left ovary and not located within the sigmoid colon mesentery. This also is not causing obstruction as the colon remains distended past the cyst and becomes hardened and fixed distally. After identifying the origin of the pelvic cyst, I then switched my colon disscetion with a medial to lateral approach coming underneath the course of the sigmoid colon arteries branching off from the VISH and in between the left ovarian cyst. The mesentery within this area is fairly thinned out. I was initially trying to identify the course of the left ureter to avoid its injury. Via this approach I was able to separate the mesentery from the ovarian cyst. Proceeding distally I opened up the peritoneal reflection on the right side or medial side of the mesentery and approach the fixed, fibrotic mid and distal sigmoid colon. I also continued opening up the left peritoneal reflection. I followed the course of the distal sigmoid and by convenience also for safety I was coming inferiorly between the sigmoid colon and the fibrotic, fixed mesentery with the vessel sealer device to try to straighten out the course of the sigmoid colon and pulled it out of the pelvis. This proved difficult technically specially with the presence of the ovarian cyst occupying some space on the pelvic inlet. At this point I contacted Dr. Russell who was in the hospital for an opinion on what to do with the left ovarian cyst. It was decided to remove it after the sigmoid, colon resection prior to the anastomosis. To be able to proceed with the colon resection I decided to divide the sigmoid colon proximally early. The VISH was divided along the course distal to the takeoff of the left coli and the mesentery was divided to the previously chosen healthy area of the junction of the sigmoid and descending colon. There is only a few diverticula visible at this area and mostly are small. There are no architectural changes within the wall of the colon itself and the colon itself appears healthy and noninflamed. The colon was divided with a double fire of a 45 mm stapler blue load. At this point the proximal stump was retracted to the left upper quadrant. Patient was positioned further on the steep Trendelenburg at 25. I then continued working on freeing up the distal sigmoid: Following the course of the colon both on the left and right side taking the colon off the sigmoid colon mesentery. Mesentery is quite hardened that this part of the procedures slow with repeat firing of the vessel sealer device to make sure we get adequate hemostasis. As we slowly free up the distal sigmoid: We entered into the plane of the proximal rectum. Again the fibrotic reaction of the mesentery is similar to that of the sigmoid colon. After couple more hours and slowly working through I was able to straighten out the course sigmoid colon but there was some noticeable injury to the wall of the sigmoid colon during the dissection. There was minimal spillage of stool and contents itself. The distal sigmoid and fairly rectum had actually been transected posteriorly so only the anterior wall was intact. To help me identify the course of the mid and distal rectum I had Dr. Cornejo place an EEA sizer transrectally. The distal rectal wall was then better visualized circumferentially. The sigmoid colon was divided and 90 controlled the opening while continuing to dissect distally. This enabled me to further help identify the course of the distal sigmoid and rectum with the dissection is so this caused some partial tears and damage to the serosa of the distal rectum so we had to go deeper further to the mid rectum. The anterior peritoneal envelope between the rectum and vagina was opened up to further free up the extra peritoneal rectum likewise the posterior portion of the rectum and its accompanying mesentery was opened up but due to the fibrosis, the plane between the presacral space and rectal mesentery was difficult to define. Once I got to healthy area of the rectum was divided with a green load of the 45 mm stapler. At this point the sigmoid and distal rectum has been fully divided. I asked Dr. Hernandez to come back in to help decide on how to manage the left ovarian cyst. On his guidance, I dissected the ovarian cyst circumferentially from its att achments to the retroperitoneum. Unfortunately during dissection the cyst was entered and there was spillage of mainly serous contents. The cyst was removed there was only some fibrotic remnants of the left ovary and this was likewise divided away from the retroperitoneum to avoid injury to the ureter with a vessel sealer device. The distal stump of the descending colon was then freed up circumferentially to make sure this reaches down to the rectal stump. The splenic flexure was partially freed up mostly laterally. I further divided the mesentery to allow for straightening of the stump itself. I had my rehab care assistant place the anvil of the 28 mm EEA stapler through the 12 mm port. The distal stump was opened up and the staple lines divided. A pursestring suture was placed at the opening of the colon intra-abdominally with a 20V LOC and the anvil was placed into the descending colon and cinched tight with another pass of the 20V LOC. The surrounding fatty appendages was trimmed off. At this point, an end-to-end anastomosis was then created with Dr. Cornejo introducing the stapler transrectally and assembling the anvil and the stapler under direct vision. He then performed a flexible sigmoidoscopy and the staple line was visualized with minimal oozing. ICG was used to test for perfusion and the anastomosis was tested under water with no bubbling or leakage. The anastomosis appears intact l ikewise adequately perfused with the ICG and firefly visualization. Once this is done I placed all the specimens above the uterus for extraction. I scrubbed back in and the robotic tower was undocked and we performed the rest of the procedure laparoscopically. A pfanensteil incision roughly about 4 cm in size was created and the fascia opened up vertically. Small Richard wound ret ractor was placed in the specimens were retrieved including that of the sigmoid colon which came apart into pieces, the ovary, and the cyst and the staple line. The fascial incision was then closed with interrupted sutures using 1 Vicryl. After checking for hemostasis this was temporarily packed with moistened saline gauze. The course of the terminal ileum was visualized laparoscopically and an appropriate area for the diverting ileostomy was chosen. I premarked the proximal and distal portion of this terminal ileum for later identification. I extracted the loop of distal ileum through the 5 mm rehab care assistant port site which was slightly enlarged to accommodate the small bowel. After duly identifying the course of the small bowel this was divided with a 75 mm stapler with a blue load. I tacked the distal portion to the mesentery of the ileum and put this back in the abdomen once more. The abdomen was then deflated. The fascial opening of the 12 mm staple port site was closed with a 0 vicryl. all skin incisions were closed with 4-0 monocryl in a subcuticular fashion and dermabond placed for dressing. The ileostomy was matured in a jh fashion with 3-0 vicryl and an appliance placed. Patient tolerated the procedure well. She was promptly awakened, extubated and brought to recovery room in stable condition. The Tucker catheter remain in place for postoperative monitoring. GERARDO GORDON MD May 22, 2019 11:06
--- NOTE | 2019-05-22 12:30 | IPNPDOC ---
Text Note Date of Service The patient was seen on 05/21/19. NOTE SUBJECTIVE: Patient seen s/p surgery , patient still somnolent pain controlled. No nausea or vomiting. OBJECTIVE PHYSICAL EXAMINATION: VITAL SIGNS: Please see below. General: Well-developed, well-nourished female laying in bed in no acute distress Cardiovascular: RRR, normal S1/2, no MRG appreciated. Chest: CTA B/L, W/R/R Abdomen: Soft, appropriate tenderness in the surgical sites. ileostomy , absent bowel sounds. No edema, Intact distal pulses. No rash or skin breakdown. No focal deficits, normal speech. AO 3, appropriate LABORATORY DATA, IMAGING STUDIES, MICROBIOLOGY: Please see below. ASSESSMENT AND PLAN: Patient is a 73-year-old female with history of hypothyroidism who presents for recurrent bowel obstruction versus unresolved bowel obstruction. Spoke to pt's surgeon and plan to go to OR on 05/21/19. In the meantime pt to do slow bowel prep. Large bowel obstruction due to Chronic diverticulitis with obstruction at the rectosigmoid, large left ovarian cyst (4 cm). S/p Robotic-assisted laparoscopic rectosigmoid resection with anastomosis and diverting ileostomy, left ovarian cystectomy/oophorectomy. diet and pain control as per surgery. Acute on Chronic diverticulitis continue cipro and flagyl Hypokalemia. Replete potassium as needed Hypothyroidism Continue home Synthroid DVT PPX: Lovenox VS,Fishbone, I+O VS, Fishbone, I+O Laboratory Tests 05/21/19 06:57 Vital Signs Date Time Temp Pulse Resp B/P (MAP) Pulse Ox O2 Delivery O2 Flow Rate FiO2 05/21/19 18:25 2.0 05/21/19 18:05 78 16 128/62 (84) 96 Nasal Cannula 05/21/19 17:50 97.2 I&O- Last 24 Hours up to 6 AM 05/21/19 06:00 Intake Total 3393 ml Output Total 850 ml Balance 2543 ml ALANIS LOAIZA MD May 21, 2019 19:25
--- NOTE | 2019-05-22 12:33 | IPNPDOC ---
Text Note Date of Service The patient was seen on 05/22/19. NOTE SUBJECTIVE: Patient sitting up in chair . Has mild abdominal tenderness at the surgical sites. ileostomy functioning with billious fluid in it. She is on clears. OBJECTIVE PHYSICAL EXAMINATION: VITAL SIGNS: Please see below. General: Well-developed, well-nourished female in no acute distress Cardiovascular: RRR, normal S1/2, no MRG appreciated. Chest: CTA B/L, W/R/R Abdomen: Soft, appropriate tenderness in the surgical sites. ileostomy ,bowel sounds present. No edema, Intact distal pulses. No rash or skin breakdown. No focal deficits, normal speech. AO 3, appropriate LABORATORY DATA, IMAGING STUDIES, MICROBIOLOGY: Please see below. ASSESSMENT AND PLAN: Patient is a 73-year-old female with history of hypothyroidism who presents for recurrent bowel obstruction, diverticulitis, versus unresolved bowel obstruction. jordan underwent surgery for large bowel obstruction on 05/21/19 Large bowel obstruction due to Chronic diverticulitis with obstruction at the rectosigmoid, large left ovarian cyst (4 cm). S/p Robotic-assisted laparoscopic rectosigmoid resection with anastomosis and diverting ileostomy, left ovarian cystectomy/oophorectomy. diet and pain control as per surgery. Acute on Chronic diverticulitis continue cipro and flagyl Hypokalemia. Replete potassium as needed Hypothyroidism Continue home Synthroid DVT PPX: Lovenox VS,Fishbone, I+O VS, Fishbone, I+O Laboratory Tests 05/22/19 05:38 Vital Signs Date Time Temp Pulse Resp B/P (MAP) Pulse Ox O2 Delivery O2 Flow Rate FiO2 05/22/19 10:00 98.8 91 18 133/70 (91) 97 Room Air 05/22/19 06:12 2.0 I&O- Last 24 Hours up to 6 AM 05/22/19 05:59 Intake Total 5160 ml Output Total 850 ml Balance 4310 ml ALANIS LOAIZA MD May 22, 2019 12:33
[2019-05-22] MEDS: ENOXAPARIN 40 MG/0.4 ML SYRINGE (J1650) SC SCH (20:19)
[2019-05-23] MEDS: metroNIDAZOLE 500 MG in IV 1 EA IV SCH ×3 (00:09→16:57)
[2019-05-23 01:30] VITALS: BP 142/73
[2019-05-23 04:45] VITALS: O2SAT 94
[2019-05-23 06:00] VITALS: BP 143/70
[2019-05-23] MEDS: CIPROFLOXACIN 400 MG in IV 1 EA IV SCH ×2 (06:01→17:50)
[2019-05-23] MEDS: KCL 40MEQ in NS 1000ML 1,000 ML IV SCH (06:01)
[2019-05-23 07:01] LABS: BLOOD UREA NITROGEN 7 MG/DL (7-18); CALCIUM LEVEL 7.9 MG/DL (8.8-10.2); CARBON DIOXIDE LEVEL 27 MEQ/L (21-32); CHLORIDE LEVEL 107 MEQ/L (98-107); CREATININE FOR GFR 0.69 MG/DL (0.55-1.30); GLOMERULAR FILTRATION RATE > 60.0 (>39); GLUCOSE, FASTING 101 MG/DL (70-100); POTASSIUM SERUM 4.4 MEQ/L (3.5-5.1); SODIUM LEVEL 138 MEQ/L (136-145)
[2019-05-23 07:04] LABS: BASO % 0.2 % (0.0-1.0); EOS # 0.2 10^3/uL (0.0-0.5); EOS % 1.5 % (0.0-3.0); HEMATOCRIT 33.6 % (36.0-47.0); HEMOGLOBIN 10.5 g/dl (12.0-15.5); LYMPH # 1.5 10^3/uL (1.5-5.0); LYMPH % 13.9 % (24.0-44.0); MEAN CORPUSCULAR HEMOGLOBIN 28.8 pg (27.0-33.0); MEAN CORPUSCULAR HGB CONC 31.3 g/dl (32.0-36.5); MEAN CORPUSCULAR VOLUME 92.1 fl (80.0-96.0); MONO # 0.9 10^3/uL (0.0-0.8); MONO % 8.2 % (0.0-5.0); NEUTROPHILS # 8.2 10^3/uL (1.5-8.5); NEUTROPHILS % 75.6 % (36.0-66.0); PLATELET COUNT, AUTOMATED 439 10^3/uL (150-450); RED BLOOD COUNT 3.65 10^6/uL (4.00-5.40); WHITE BLOOD COUNT 10.8 10^3/uL (4.0-10.0)
[2019-05-23] MEDS: KETOROLAC 30 MG/ML VIAL (J1885) IV SCH ×3 (07:26→17:47)
[2019-05-23] MEDS: ONDANSETRON 4MG/2ML VIAL (J2405) IV PRN ×3 (07:29→22:19)
[2019-05-23 08:00] VITALS: O2SAT 96
[2019-05-23] MEDS: ALVIMOPAN 12 MG CAPSULE (ENTEREG) PO SCH ×2 (08:57→22:08)
--- NOTE | 2019-05-23 12:47 | IPN ---
DATE: 05/23/2019 HISTORY: The patient is now postop day 2 for a robotic-assisted laparoscopic sigmoid resection with colorectal anastomosis and diverting ileostomy. She has generally done quite well. She has had a good return of bowel function with liquid stool from her ileostomy. She reports having had some stool and even a little air through her rectum yesterday. She is having some mild pain but nothing unbearable. Vital signs show that she had a T-max of 100.1 at 1:30 this morning and has been afebrile since. Her pulse is in the 90s generally and her blood pressure is good. Room air oxygen saturation is in the mid 90s. Intake and output show that yesterday she had 3700 in with 1900 out. Her IV fluid has been discontinued at this point. She remains on ciprofloxacin and Flagyl. Her urine output yesterday was 900 with liquid stool of 975. PHYSICAL EXAMINATION The patient is resting in a recliner at the bedside. When roused she is awake and alert and appears fairly comfortable. She is breathing easily. Abdomen is flat. Her ileostomy in the right midabdomen has some liquid greenish stool in the bag and the ostomy itself is pink and viable. Her other dressings are clean and dry. The abdomen is soft without any undue tenderness. Laboratory studies include a CBC that today shows a white count of 11, hematocrit of 34 with a hemoglobin of 10 and platelet count of 439,000. Chemistry profile shows a sodium of 138, potassium 4.4, chloride 107, CO2 of 27, BUN of 7, creatinine 0.7 and a glucose of 101. IMPRESSION: The patient is doing very well now 2 days postop from her colon resection with colorectal anastomosis and diverting ileostomy. Her ostomy seems to be working well and she is tolerating a soft diet. She remains on Cipro and Flagyl for some spillage intraoperatively. PLAN: The patient is encouraged to be up out of bed. I will put in an order for the nurses to begin some ileostomy teaching. I will continue the antibiotics for now. MTDD
[2019-05-23 14:00] VITALS: BP 132/69
--- NOTE | 2019-05-23 16:32 | IPNPDOC ---
Text Note Date of Service The patient was seen on 05/23/19. NOTE Subjective: Patient complains of nausea. She didn't eat breakfast. Patient de nies fever, chills, vomiting, chest pain, dysuria. OBJECTIVE: PHYSICAL EXAMINATION: VITAL SIGNS: Please see below. General: Well-developed, well-nourished female in no acute distress Cardiovascular: RRR, normal S1/2, no MRG appreciated. Chest: CTA B/L, W/R/R Abdomen: Soft, appropriate tenderness in the surgical sites. ileostomy ,bowel sounds present. Extremities: No edema, Intact distal pulses. Skin: No rash or skin breakdown. Neuro: No focal deficits, normal speech. AO 3, appropriate Assessment and plan: Patient is 73 years old female with past medical history of hypothyroidism presented with recurrent bowel obstruction and diverticulitis. Colostomy was placed on 05/21/19 Large bowel obstruction postop day 2 Secondary to chronic diverticulitis Colostomy was placed on 05/21/19 Surgical team follows patient Acute on chronic diverticulitis Continue antibiotic therapy Electrolyte imbalance Replenished Hypothyroidism Continue Synthroid Nausea Continue Zofran VS,Fishbone, I+O VS, Fishbone, I+O Laboratory Tests 05/23/19 06:32 05/23/19 06:33 Vital Signs Date Time Temp Pulse Resp B/P (MAP) Pulse Ox O2 Delivery O2 Flow Rate FiO2 05/23/19 14:00 98.5 87 17 132/69 (90) 95 Room Air 05/22/19 06:12 2.0 I&O- Last 24 Hours up to 6 AM 05/23/19 06:00 Intake Total 3320 ml Output Total 3000 ml Balance 320 ml LENARD ELY DO May 23, 2019 16:32
[2019-05-23 22:00] VITALS: BP 153/81
[2019-05-23] MEDS: CALCIUM/VITAMIN D 500 MG TAB PO SCH (22:08)
[2019-05-23] MEDS: ENOXAPARIN 40 MG/0.4 ML SYRINGE (J1650) SC SCH (22:09)
[2019-05-23] MEDS ORDERED: LEVOTHYROXINE 100MCG TABLET (0.1MG) PO SCH (23:15)
[2019-05-24] MEDS: metroNIDAZOLE 500 MG in IV 1 EA IV SCH ×3 (00:08→16:27)
[2019-05-24] MEDS: LEVOTHYROXINE 100MCG TABLET (0.1MG) PO SCH (05:51)
[2019-05-24] MEDS: CIPROFLOXACIN 400 MG in IV 1 EA IV SCH ×2 (05:51→18:17)
[2019-05-24] MEDS: KETOROLAC 30 MG/ML VIAL (J1885) IV SCH ×4 (05:52→18:18)
[2019-05-24 06:00] VITALS: BP 148/86
[2019-05-24 06:20] LABS: BASO % 0.2 % (0.0-1.0); EOS # 0.3 10^3/uL (0.0-0.5); EOS % 3.3 % (0.0-3.0); HEMATOCRIT 31.1 % (36.0-47.0); HEMOGLOBIN 9.9 g/dl (12.0-15.5); LYMPH # 1.9 10^3/uL (1.5-5.0); LYMPH % 19.3 % (24.0-44.0); MEAN CORPUSCULAR HEMOGLOBIN 28.9 pg (27.0-33.0); MEAN CORPUSCULAR HGB CONC 31.8 g/dl (32.0-36.5); MEAN CORPUSCULAR VOLUME 90.7 fl (80.0-96.0); MONO # 0.8 10^3/uL (0.0-0.8); NEUTROPHILS # 6.7 10^3/uL (1.5-8.5); NEUTROPHILS % 68.4 % (36.0-66.0); RED BLOOD COUNT 3.43 10^6/uL (4.00-5.40); WHITE BLOOD COUNT 9.8 10^3/uL (4.0-10.0)
[2019-05-24 06:21] LABS: PLATELET COUNT, AUTOMATED 581 10^3/uL (150-450)
[2019-05-24 06:29] LABS: BLOOD UREA NITROGEN 5 MG/DL (7-18); CALCIUM LEVEL 8.3 MG/DL (8.8-10.2); CARBON DIOXIDE LEVEL 31 MEQ/L (21-32); CHLORIDE LEVEL 105 MEQ/L (98-107); CREATININE FOR GFR 0.78 MG/DL (0.55-1.30); GLOMERULAR FILTRATION RATE > 60.0 (>39); GLUCOSE, FASTING 94 MG/DL (70-100); POTASSIUM SERUM 4.1 MEQ/L (3.5-5.1); SODIUM LEVEL 138 MEQ/L (136-145)
[2019-05-24] MEDS: ONDANSETRON 4MG/2ML VIAL (J2405) IV PRN ×3 (07:19→19:01)
[2019-05-24] MEDS: ALVIMOPAN 12 MG CAPSULE (ENTEREG) PO SCH ×2 (08:56→21:05)
--- NOTE | 2019-05-24 11:57 | IPNPDOC ---
Text Note Date of Service The patient was seen on 05/24/19. NOTE Subjective: No any acute events overnight. Patient denies fever, chills, vomi ting, chest pain, dysuria. OBJECTIVE: PHYSICAL EXAMINATION: VITAL SIGNS: Please see below. General: Well-developed, well-nourished female in no acute distress Cardiovascular: RRR, normal S1/2, no MRG appreciated. Chest: CTA B/L, W/R/R Abdomen: Soft, appropriate tenderness in the surgical sites. ileostomy ,bowel sounds present. Extremities: No edema, Intact distal pulses. Skin: No rash or skin breakdown. Neuro: No focal deficits, normal speech. AO 3, appropriate Assessment and plan: Patient is 73 years old female with past medical history of hypothyroidism presented with recurrent bowel obstruction and diverticulitis. Colostomy was placed on 05/21/19 Large bowel obstruction postop day 3 Secondary to chronic diverticulitis Colostomy was placed on 05/21/19 Surgical team follows patient Acute on chronic diverticulitis Continue antibiotic therapy Electrolyte imbalance Replenished Hypothyroidism Continue Synthroid Nausea Continue Zofran VS,Fishbone, I+O VS, Fishbone, I+O Laboratory Tests 05/24/19 05:42 Vital Signs Date Time Temp Pulse Resp B/P (MAP) Pulse Ox O2 Delivery O2 Flow Rate FiO2 05/24/19 06:00 99.0 77 17 148/86 (106) 95 Room Air 05/22/19 06:12 2.0 I&O- Last 24 Hours up to 6 AM 05/24/19 06:00 Intake Total 2700 ml Output Total 4625 ml Balance -1925 ml LENARD ELY DO May 24, 2019 11:57
[2019-05-24 14:00] VITALS: BP 142/86
[2019-05-24] MEDS: CALCIUM/VITAMIN D 500 MG TAB PO SCH (21:05)
[2019-05-24] MEDS: ENOXAPARIN 40 MG/0.4 ML SYRINGE (J1650) SC SCH (21:06)
[2019-05-24 22:00] VITALS: BP 147/78
[2019-05-25] MEDS: metroNIDAZOLE 500 MG in IV 1 EA IV SCH ×2 (00:53→09:41)
[2019-05-25 06:00] VITALS: BP 142/79
[2019-05-25] MEDS: KETOROLAC 30 MG/ML VIAL (J1885) IV SCH ×2 (06:00)
[2019-05-25] MEDS: CIPROFLOXACIN 400 MG in IV 1 EA IV SCH (06:01)
[2019-05-25] MEDS: LEVOTHYROXINE 100MCG TABLET (0.1MG) PO SCH (06:01)
--- NOTE | 2019-05-25 06:42 | IPN ---
DATE: 05/24/2019 HISTORY: The patient is now postop day #3 from a robotic-assisted laparoscopic sigmoid resection with colorectal anastomosis and a diverting ileostomy. She has been doing quite well with good output from her ileostomy. Yesterday, she reported some rectal output as well, but no bleeding. She has been taking a diet, but does report that her appetite seems off. Vital signs show that she has been afebrile over the past 24 hours. Her pulse has generally been in the 70s and 80s. Blood pressure is good with a normal room air oxygen saturation. Intake and output show that yesterday she had 2600 in with 4600 out. Urine output is brisk and that continues this morning as well. She has had a good output from her ileostomy as well. PHYSICAL EXAMINATION: The patient is sitting up in the bedside looking fairly comfortable. Heart exam shows a regular rate and rhythm. Her lungs are clear. The abdomen is nondistended and soft. Her ileostomy appliance has some liquid greenish brown stool. She does have bowel sounds present. LABORATORY STUDIES: Show a white count of 10, hemoglobin 10, hematocrit 31 and a platelet count of 581,000. Differential count shows 68% neutrophils, 19% lymphocytes and 8% monocytes. Chemistry profile shows a sodium of 138, potassium 4.1, chloride 105, CO2 of 31, BUN of only 5, creatinine 0.78 and a glucose of 94. IMPRESSION: The patient appears to be actually doing quite well from her surgery. She is tolerating a diet and having excellent ileostomy function. She has remained afebrile and is not using much in the way of pain medication. PLAN: She was encouraged to work on ostomy training. She did have questions about a possible visiting nurse after discharge to assist her in addressing the care of her ileostomy and I believe this will still be possible even in the face of the COVID pandemic. She may well be ready for discharge within the next day or two. I will continue her antibiotics for now.
[2019-05-25 07:15] LABS: BASO % 0.4 % (0.0-1.0); EOS # 0.3 10^3/uL (0.0-0.5); EOS % 3.7 % (0.0-3.0); HEMATOCRIT 31.1 % (36.0-47.0); HEMOGLOBIN 9.8 g/dl (12.0-15.5); LYMPH # 1.5 10^3/uL (1.5-5.0); LYMPH % 19.1 % (24.0-44.0); MEAN CORPUSCULAR HEMOGLOBIN 28.1 pg (27.0-33.0); MEAN CORPUSCULAR HGB CONC 31.5 g/dl (32.0-36.5); MEAN CORPUSCULAR VOLUME 89.1 fl (80.0-96.0); MONO # 0.6 10^3/uL (0.0-0.8); NEUTROPHILS # 5.3 10^3/uL (1.5-8.5); NEUTROPHILS % 67.7 % (36.0-66.0); PLATELET COUNT, AUTOMATED 643 10^3/uL (150-450); RED BLOOD COUNT 3.49 10^6/uL (4.00-5.40); WHITE BLOOD COUNT 7.9 10^3/uL (4.0-10.0)
[2019-05-25 07:21] LABS: BLOOD UREA NITROGEN 4 MG/DL (7-18); CALCIUM LEVEL 8.3 MG/DL (8.8-10.2); CARBON DIOXIDE LEVEL 29 MEQ/L (21-32); CHLORIDE LEVEL 104 MEQ/L (98-107); CREATININE FOR GFR 0.73 MG/DL (0.55-1.30); GLOMERULAR FILTRATION RATE > 60.0 (>39); GLUCOSE, FASTING 94 MG/DL (70-100); POTASSIUM SERUM 3.7 MEQ/L (3.5-5.1); SODIUM LEVEL 139 MEQ/L (136-145)
[2019-05-25] MEDS: ONDANSETRON 4MG/2ML VIAL (J2405) IV PRN ×2 (07:34→15:03)
[2019-05-25] MEDS: ALVIMOPAN 12 MG CAPSULE (ENTEREG) PO SCH (09:41)
--- NOTE | 2019-05-25 10:33 | IPNPDOC ---
Subjective General Date/Time Seen The patient was seen on 05/25/19 at 10:26. Subject Chief Complaint/History Patient seen sitting up on her chair. She looks comfortable. She reports overall she is doing well. She still has some waves of nausea which improves with Zofran enough that she is able to eat. Appetite is fair. She does report that she is starting to get hungry. She's been afebriLE. She is ambulating the hallways. Her ileostomy is functioning and she worked with her nurse to change this yesterday. No reported leakage. Rest of the incisions are clean and dry. Current Medications Current Medications Current Medications Medications (Trade) Dose Ordered Sig/Marianna Route PRN Reason Start Time Stop Time Status Last Admin Dose Admin Acetaminophen (Tylenol Arthritis Er) 1,300 mg Q8HP PRN PO PAIN 05/17/19 21:45 05/18/19 17:21 DC 05/18/19 00:39 Acetaminophen (Tylenol Tab) 650 mg Q6HP PRN PO PAIN / FEVER 05/18/19 17:30 05/18/19 17:35 Acetaminophen 1000 mg/IV Miscellaneous Supplies 100 ml @ 400 mls/hr ASDIRECTED IV 05/21/19 18:00 05/21/19 18:14 DC Alvimopan (Entereg) 12 mg BID PO 05/21/19 21:00 05/26/19 20:59 05/25/19 09:41 Calcium/Vitamin D (Oscal D) 500 mg QHS PO 05/23/19 21:00 05/24/19 21:05 Ciprofloxacin 400 mg/IV Miscellaneous Supplies 200 ml @ 200 mls/hr Q12H IV 05/18/19 18:00 05/25/19 06:01 Enoxaparin Sodium (Lovenox) 40 mg QHS SC 05/17/19 21:00 05/24/19 21:06 Fentanyl Citrate (Sublimaze) 25 mcg Q5MP PRN IV PAIN LEVEL 5-10 05/21/19 17:45 05/21/19 18:45 DC Home Med (Med Rec Complete!) ASDIRECTED XX 05/17/19 17:00 05/17/19 17:12 DC Ketorolac Tromethamine (ToRADol) 15 mg Q6H IV 05/21/19 18:00 05/26/19 17:59 05/24/19 18:18 Lactated Ringer's 1,000 ml @ 100 mls/hr Q10H IV 05/21/19 17:45 05/21/19 18:45 DC Lactulose (Cephulac) 30 ml BID PO 05/17/19 16:15 05/17/19 17:06 DC Levothyroxine Sodium (Synthroid) 100 mcg DAILY PO 05/23/19 23:15 05/23/19 23:25 DC Levothyroxine Sodium (Synthroid) 100 mcg DAILY@0600 PO 05/24/19 06:00 05/25/19 06:01 Magnesium Hydroxide (Milk Of Magnesia) 30 ml BID PO 05/17/19 21:00 05/21/19 17:14 DC 05/20/19 21:28 Metronidazole 500 mg/IV Miscellaneous Supplies 100 ml @ 100 mls/hr Q8H IV 05/18/19 01:00 05/25/19 09:41 Morphine Sulfate (Morphine Sulfate Inj) 5 mg Q4HP PRN IV SEVERE PAIN (PS 8-10) 05/21/19 17:15 Neomycin Sulfate (Mycifradin) 1,000 mg TID@1400,1500,2200 PO 05/20/19 14:00 05/20/19 22:01 DC 05/20/19 21:28 Ondansetron HCl (ZOFRAN INJection) 2 mg Q4HP PRN IV NAUSEA OR VOMITING 05/17/19 21:45 05/20/19 16:50 DC 05/20/19 15:12 Ondansetron HCl (ZOFRAN INJection) 4 mg Q4HP PRN IV NAUSEA OR VOMITING 05/20/19 17:00 05/25/19 07:34 Ondansetron HCl (ZOFRAN INJection) 4 mg Q4HP PRN IV NAUSEA OR VOMITING 05/21/19 17:45 05/21/19 18:45 DC Oxycodone HCl (Roxicodone, Oxyir) 5 mg ASDIRECTED PRN PO PAIN LEVEL 1-4 05/21/19 17:45 05/21/19 18:45 DC Oxycodone/ Acetaminophen (Percocet 5mg/ 325mg Tablet) 1 tab Q4HP PRN PO MILD/MODERATE PAIN (PS 1-7) 05/21/19 17:15 Oxycodone/ Acetaminophen (Percocet 5mg/ 325mg Tablet) 2 tab Q6HP PRN PO SEVERE PAIN (PS 8-10) 05/21/19 17:15 05/23/19 08:52 DC Potassium Chloride 10 meq/ IV Miscellaneous Supplies 100 ml @ 100 mls/hr Q1H IV 05/17/19 18:00 05/17/19 20:59 DC 05/17/19 21:51 Potassium Chloride 10 meq/ IV Miscellaneous Supplies 100 ml @ 100 mls/hr Q1H IV 05/18/19 08:00 05/18/19 11:59 DC 05/18/19 14:04 Potassium Chloride 10 meq/ IV Miscellaneous Supplies 100 ml @ 100 mls/hr Q1H IV 05/18/19 16:00 05/18/19 18:00 DC 05/18/19 17:36 Potassium Chloride/Sodium Chloride 1,000 ml @ 75 mls/hr [id number] IV 05/19/19 07:56 05/23/19 06:26 DC 05/23/19 06:01 Promethazine HCl (PHENERGAN INJection) 12.5 mg Q8HP PRN IV NAUSEA 05/20/19 16:45 05/23/19 08:52 DC 05/20/19 16:47 Sodium Biphosphate/ Sodium Phosphate (Fleet Enema) 1 ea DAILYPRN PRN CO CONSTIPATION 05/17/19 16:15 05/21/19 17:14 DC Sodium Chloride 1,000 ml @ 75 mls/hr [id number] IV 05/17/19 17:30 05/19/19 07:57 DC 05/18/19 08:00 Allergies Coded Allergies: No Known Allergies (Unverified , 05/23/17) Objective Physical Examination Examination GENERAL APPEARANCE: Patient looks comfortable. SKIN: Warm and dry. LUNGS: Clear to auscultation bilaterally. No wheezing appreciated. HEART: No chest wall abnormalities. Regular rate and rhythm with no murmurs appr eciated. ABDOMEN: Abdomen is minimally distended, slightly rounded, soft, her port site incisions including the fan instill extraction sites are covered with Dermabond and are clean and dry. There is small amount of subcutaneous thickening underneath the pfannensteil incision but no fluctuance or drainage. She has a right-sided ileostomy that is working. Output has been thick semisolid. Minimally tender around the incision sites but otherwise benign in appearance and palpation. EXTREMITIES: No significant extremity edema. Vital Signs Vital Signs Date Time Temp Pulse Resp B/P (MAP) Pulse Ox O2 Delivery O2 Flow Rate FiO2 05/25/19 06:00 99.0 75 16 142/79 (100) 92 Room Air 05/22/19 06:12 2.0 I&Os I&O- Last 24 Hours up to 6 AM 05/25/19 06:00 Intake Total 1940 ml Output Total 3100 ml Balance -1160 ml Laboratory Data Labs 24H Laboratory Tests 2 05/25/19 06:12: Immature Granulocyte % (Auto) 1.1, Neutrophils (%) (Auto) 67.7H, Lymphocytes (%) (Auto) 19.1L, Monocytes (%) (Auto) 8.0H, Eosinophils (%) (Auto) 3.7H, Basophils (%) (Auto) 0.4, Neutrophils # (Auto) 5.3, Lymphocytes # (Auto) 1.5, Monocytes # (Auto) 0.6, Eosinophils # (Auto) 0.3, Basophils # (Auto) 0.0, Nucleated Red Blood Cells % (auto) 0.0, Anion Gap 6L, Glomerular Filtration Rate > 60.0, Calcium Level 8.3L CBC/BMP Laboratory Tests 05/25/19 06:12 Microbiology Microbiology 05/18/19 Blood Culture - Final, Complete NO GROWTH AFTER 5 DAYS 05/17/19 Blood Culture - Final, Complete Staphylococcus Epidermidis Impression She is now post op day 4 following a robotic-assisted laparoscopic sigmoid colectomy With a end-to-end (28 cm) proctocolic anastomosis and a diverting ile ostomy as well as left ovarian cystectomy and oophorectomy. The resection and anastomosis is at roughly about 12 cm. She continues to do well. She still has some lingering nausea. I will stop her antibiotics at this point as well as her pain medication save for the when necessary Percocet which she has not really been using in hopes that some of this medications may be provoking her nausea and would improve it with discontinuation especially those of the antibiotics. She has had a resection alr brianda and is not showing any leukocytosis or persistent inflammatory response following the surgery, I think it is safe to stop the antibiotics at this point. She will continue to work with the nurses on the [facility] to take care of the ostomy and will start to try to plan out possible hospital discharge soon. Plan / VTE VTE Prophylaxis Ordered?: Yes MONROE BURGER MD May 25, 2019 10:33
--- NOTE | 2019-05-25 12:22 | IPNPDOC ---
Text Note Date of Service The patient was seen on 05/25/19. NOTE Subjective: Patient had a nausea in the morning, subsided after Zofran. Patient denies fever, chills, vomiting, chest pain, dysuria. OBJECTIVE: PHYSICAL EXAMINATION: VITAL SIGNS: Please see below. General: Well-developed, well-nourished female in no acute distress Cardiovascular: RRR, normal S1/2, no MRG appreciated. Chest: CTA B/L, W/R/R Abdomen: Soft, appropriate tenderness in the surgical sites. ileostomy ,bowel sounds present. Extremities: No edema, Intact distal pulses. Skin: No rash or skin breakdown. Neuro: No focal deficits, normal speech. AO 3, appropriate Assessment and plan: Patient is 73 years old female with past medical history of hypothyroidism pre sented with recurrent bowel obstruction and diverticulitis. Colostomy was placed on 05/21/19 Large bowel obstruction postop day 4 Secondary to chronic diverticulitis Colostomy was placed on 05/21/19 Surgical team discontinued antibiotics Acute on chronic diverticulitis Antibiotics was discontinued by surgical team Electrolyte imbalance Replenished Hypothyroidism Continue Synthroid Nausea Continue Zofran VS,Fishbone, I+O VS, Fishbone, I+O Laboratory Tests 05/25/19 06:12 Vital Signs Date Time Temp Pulse Resp B/P (MAP) Pulse Ox O2 Delivery O2 Flow Rate FiO2 05/25/19 06:00 99.0 75 16 142/79 (100) 92 Room Air 05/22/19 06:12 2.0 l I&O- Last 24 Hours up to 6 AM 05/25/19 06:00 Intake Total 1940 ml Output Total 3100 ml Balance -1160 ml LENARD ELY DO May 25, 2019 12:22
[2019-05-25 14:00] VITALS: BP 132/71
[2019-05-25] MEDS ORDERED: METOCLOPRAMIDE INJ 10MG/2ML VIAL (J2765) IV PRN (17:45)
[2019-05-25] MEDS ORDERED: ONDANSETRON 4 MG TAB (S0181) PO PRN (18:30)
[2019-05-25] MEDS ORDERED: METOCLOPRAMIDE 10 MG TAB PO PRN (18:30)
[2019-05-25] MEDS: CALCIUM/VITAMIN D 500 MG TAB PO SCH (20:01)
[2019-05-25] MEDS: ENOXAPARIN 40 MG/0.4 ML SYRINGE (J1650) SC SCH (20:02)
[2019-05-25 22:00] VITALS: BP 153/90
[2019-05-25 23:00] VITALS: BP 140/76
[2019-05-26] MEDS: LEVOTHYROXINE 100MCG TABLET (0.1MG) PO SCH (05:44)
[2019-05-26 06:00] VITALS: BP 138/70
[2019-05-26 06:15] LABS: BASO % 0.3 % (0.0-1.0); EOS # 0.2 10^3/uL (0.0-0.5); EOS % 1.6 % (0.0-3.0); LYMPH # 1.3 10^3/uL (1.5-5.0); LYMPH % 12.4 % (24.0-44.0); MEAN CORPUSCULAR HEMOGLOBIN 28.7 pg (27.0-33.0); MEAN CORPUSCULAR HGB CONC 32.4 g/dl (32.0-36.5); MEAN CORPUSCULAR VOLUME 88.8 fl (80.0-96.0); MONO # 0.8 10^3/uL (0.0-0.8); MONO % 7.5 % (0.0-5.0); NEUTROPHILS # 8.3 10^3/uL (1.5-8.5); PLATELET COUNT, AUTOMATED 746 10^3/uL (150-450); RED BLOOD COUNT 3.83 10^6/uL (4.00-5.40); WHITE BLOOD COUNT 10.8 10^3/uL (4.0-10.0)
[2019-05-26 06:27] LABS: BLOOD UREA NITROGEN 5 MG/DL (7-18); CALCIUM LEVEL 8.6 MG/DL (8.8-10.2); CARBON DIOXIDE LEVEL 29 MEQ/L (21-32); CHLORIDE LEVEL 102 MEQ/L (98-107); CREATININE FOR GFR 0.75 MG/DL (0.55-1.30); GLOMERULAR FILTRATION RATE > 60.0 (>39); GLUCOSE, FASTING 107 MG/DL (70-100); POTASSIUM SERUM 4.1 MEQ/L (3.5-5.1); SODIUM LEVEL 136 MEQ/L (136-145)
--- NOTE | 2019-05-26 11:09 | REP ---
ABDOMINAL SERIES: Supine and erect views of the abdomen demonstrate no evidence of free intraperitoneal air. Previously noted mildly dilated air filled small and large bowel have decreased in caliber. Right sided ostomy is again noted. Calcification in the pelvis is unchanged. There are degenerative changes of the spine. There appears to be mild bibasilar fibroatelectatic change in each lung base. The heart is not enlarged. There is mild calcification of the thoracic aorta. IMPRESSION: Previously noted prominent, mildly dilated air filled small and large bowel loops have decreased in caliber since 05/19/2019. Electronically Signed by Fredy Spencer MD 05/26/2019 12:47 P
[2019-05-26] MEDS ORDERED: ZOFR4TAB16 PO (12:18)
[2019-05-26] MEDS ORDERED: REGL5TAB2 PO (12:19)
--- NOTE | 2019-05-26 13:21 | DS.PDOC ---
Discharge Summary General Date of Admission May 17, 2019 at 16:14 Date of Discharge 05/26/19 Discharge Summary PROCEDURES PERFORMED DURING STAY: [None]. ADMITTING DIAGNOSES: Large bowel obstruction Acute on chronic diverticulitis Hypokalemia. Hypothyroidism Electrolyte imbalance Nausea DISCHARGE DIAGNOSES: Large bowel obstruction Acute on chronic diverticulitis Hypokalemia. Hypothyroidism Electrolyte imbalance Nausea COMPLICATIONS/CHIEF COMPLAINT: Large Bowel Obstruction. HISTORY OF PRESENT ILLNESS: Patient is a 73-year-old female with history of hypothyroidism who presents for recurrent bowel obstruction. Patient recently discharged substitution 05/14/19 after presenting with generalized abdominal pain and constipation. Patient found to have bowel obstruction. Patient treated with lactulose and fleets enema, nothing by mouth and surgery consult. Surgery recommended possible outpatient elective surgery as patient's obstruction, resolved. Patient now presents with recurrent symptoms of constipation and mild abdominal pain. Patient states she went home, and was unable to have a bowel movement despite taking laxatives that were prescribed to her. Patient called surgeon's office and spoke to highway traffic control technician physician who recommended mag citrate, which patient took with no relief. Patient says abdominal pain, became mildly worsened and patient called surgeon's office again on morning of admission and was recommended to do an enema. Patient did enema with no relief and decided to present to the emergency room for further evaluation and treatment. Patient endorses nausea, abdominal pain, constipation, but denies any fevers, chills, chest pain, difficulty breathing, vomiting, dysuria, diarrhea, leg pain or swelling. HOSPITAL COURSE: During hospital stay the colostomy was placed on 05/21/19 DISCHARGE MEDICATIONS: Please see below. ALLERGIES: Please see below. PHYSICAL EXAMINATION ON DISCHARGE: VITAL SIGNS: Please see below. General: Well-developed, well-nourished female in no acute distress Cardiovascular: RRR, normal S1/2, no MRG appreciated. Chest: CTA B/L, W/R/R Abdomen: Soft, appropriate tenderness in the surgical sites. ileostomy ,bowel sounds present. Extremities: No edema, Intact distal pulses. Skin: No rash or skin breakdown. Neuro: No focal deficits, normal speech. AO 3, appropriate LABORATORY DATA: Please see below. IMAGING:CT ABDOMEN AND PELVIS WITH IV CONTRAST: CT ABDOMEN AND PELVIS WITH CONTRAST: TECHNIQUE: Axial contrast enhanced images from the lung bases to the pubic symphysis using 100 mL Isovue 370 intravenous contrast material with multiplanar reformations. COMPARISON: 05/12/2019 Visualized lung bases are demonstrate no acute infiltrate with mild scattered fibrotic change. There are a couple of tiny cysts again seen in the liver. There is a small hiatal hernia. The spleen is unremarkable. Adrenal glands are normal. No pancreatic mass is seen. Parapelvic cysts are again seen in the left kidney. Right kidney is unremarkable. There is no abdominal aortic aneurysm. There is no adenopathy. There is no free air or free fluid. There is diffuse thickening of the rectosigmoid colon. Compatible with nonspecific colitis with surrounding streaky inflammatory change in the pericolonic fat. There are a few sigmoid diverticula present. The findings are similar to the prior study. More proximal bowel is diffusely mildly dilated. But not as distended as on the prior exam. In the left pelvis, the previously noted left ovarian cyst is again seen. Calcified fibroid is again seen in the right uterus. Urinary bladder is mildly distended and grossly unremarkable. There are degenerative changes of the spine. IMPRESSION: Once again, there is diffuse thickening of the rectosigmoid colon with pericolonic inflammation compatible with nonspecific colitis similar to the prior study. Diffuse mild distention of the more proximal bowel is noted but the distention has decreased since the prior exam of 05/12/2019. No free air or free fluid. Left ovarian cyst is unchanged. Recommend further evaluation with pelvic ultrasound. PROGNOSIS: Fair ACTIVITY: [As tolerated]. DIET: Cardiac DISCHARGE PLAN: Home DISCHARGE INSTRUCTIONS: Follow surgical recommendation ITEMS TO FOLLOWUP ON ON OUTPATIENT: Follow-up with Dr. Gordon DISCHARGE CONDITION: [Stable]. TIME SPENT ON DISCHARGE: Greater than 20 minutes. Vital Signs/I&Os Vital Signs Date Time Temp Pulse Resp B/P (MAP) Pulse Ox O2 Delivery O2 Flow Rate FiO2 05/26/19 06:00 99.1 83 17 138/70 (92) 94 Room Air 05/22/19 06:12 2.0 I&O- Last 24 Hours up to 6 AM 05/26/19 05:59 Intake Total 2440 ml Output Total 2750 ml Balance -310 ml Laboratory Data Labs 24H Laboratory Tests 2 05/26/19 05:41: Immature Granulocyte % (Auto) 1.2, Neutrophils (%) (Auto) 77.0H, Lymphocytes (%) (Auto) 12.4L, Monocytes (%) (Auto) 7.5H, Eosinophils (%) (Auto) 1.6, Basophils (%) (Auto) 0.3, Neutrophils # (Auto) 8.3, Lymphocytes # (Auto) 1.3L, Monocytes # (Auto) 0.8, Eosinophils # (Auto) 0.2, Basophils # (Auto) 0.0, Nucleated Red Blood Cells % (auto) 0.0, Anion Gap 5L, Glomerular Filtration Rate > 60.0, Calcium Level 8.6L CBC/BMP Laboratory Tests 05/26/19 05:41 Microbiology Microbiology 05/18/19 Blood Culture - Final, Complete NO GROWTH AFTER 5 DAYS 05/17/19 Blood Culture - Final, Complete Staphylococcus Epidermidis Discharge Medications Scheduled Aspirin (Aspirin EC) 81 Mg Tab, 81 MG PO DAILY, (Reported) Bifidobacterium Infantis (Align) 4 Mg Capsule, 4 MG PO DAILY, (Reported) Calcium Carb/Vitamin D3/Vit K1 (Viactiv 650 mg-12.5 Mcg Chew) 1 Each Tab.chew, 3 CHEW PO DAILY, (Reported) Cholecalciferol (Vitamin D3) (Vitamin D3) 1,000 Unit Tablet, 1,000 UNITS PO DAILY, (Reported) Levothyroxine Sodium (Levothyroxine Sodium) 100 Mcg Tab, 100 MCG PO DAILY, (Repo rted) Scheduled PRN Lactulose (Lactulose) 10 Gm/15 Ml Solution, 15 ML PO Q2D PRN for CONSTIPATION, (Reported) Metoclopramide Hcl (Reglan) 5 Mg Tablet, 1 TAB PO ONCE PRN for NAUSEA 1 hour prior to procedure Ondansetron HCl (Ondansetron HCl) 4 Mg Tablet, 4 MG PO Q4H PRN for NAUSEA OR VOMITING, (Reported) Ondansetron HCl (Zofran) 4 Mg Tablet, 1 TAB PO Q6-8HP PRN for nausea/vomiting Allergies Coded Allergies: No Known Allergies (Unverified , 05/23/17) LENARD ELY DO May 26, 2019 13:21
== END 2019-05-26 13:42 | disposition home or self-care (01) | DRG 330 ==
LOC: M ED 14:32 → M ED INP 16:14 → ENRESERV 16:46 → M MSPAV 17:10 → M RR INP 05-21 16:27 → M MSPAV 05-21 18:30
PROVIDERS: ADMIT Internal Medicine; ATTEND Internal Medicine
PROC: 0DBN4ZZ Excision of Sigmoid Colon, Percutaneous Endoscopic Approach (ICD-10-PCS; principal; 2019-05-22)
PROC: 0D1B4Z4 Bypass Ileum to Cutaneous, Percutaneous Endoscopic Approach (ICD-10-PCS; 2019-05-22)
PROC: 0UB14ZZ Excision of Left Ovary, Percutaneous Endoscopic Approach (ICD-10-PCS; 2019-05-22)
PROC: 8E0W4CZ Robotic Assisted Procedure of Trunk Region, Percutaneous Endoscopic Approach (ICD-10-PCS; 2019-05-22)
DX: K57.32 Diverticulitis of large intestine without perforation or abscess without bleeding (principal); K56.609 Unspecified intestinal obstruction, unspecified as to partial versus complete obstruction; E87.6 Hypokalemia; E03.9 Hypothyroidism, unspecified; N83.202 Unspecified ovarian cyst, left side; Z79.899 Other long term (current) drug therapy; Z79.82 Long term (current) use of aspirin; R11.0 Nausea

== ENCOUNTER → 2019-07-10 | Outpatient (CLI) | payer MEDICARE, OTHER ==
[~2019-07-10] MED LIST changes: +FENO145T7 PO; +GASTROGRAFIN SOLUTION 30ML (Q9963) As Ordered ONE; +LIQUID POLIBAR PLUS 105% w/v 1900ML BTL As Ordered ONE; +REGL5TAB2 PO
[2019-07-10 09:21] LABS: HEMATOCRIT 38.1 % (36.0-47.0); MEAN CORPUSCULAR HGB CONC 31.5 g/dl (32.0-36.5); MEAN CORPUSCULAR VOLUME 88.8 fl (80.0-96.0); PLATELET COUNT, AUTOMATED 427 10^3/uL (150-450); RED BLOOD COUNT 4.29 10^6/uL (4.00-5.40); WHITE BLOOD COUNT 4.9 10^3/uL (4.0-10.0)
[2019-07-10 09:57] LABS: ALBUMIN 3.7 GM/DL (3.2-5.2); ALT/SGPT 23 U/L (12-78); BILIRUBIN,TOTAL 0.4 MG/DL (0.2-1.0); BLOOD UREA NITROGEN 21 MG/DL (7-18); CALCIUM LEVEL 9.1 MG/DL (8.8-10.2); CARBON DIOXIDE LEVEL 28 MEQ/L (21-32); CHLORIDE LEVEL 106 MEQ/L (98-107); CREATININE FOR GFR 0.85 MG/DL (0.55-1.30); GLOMERULAR FILTRATION RATE > 60.0 (>39); GLUCOSE, FASTING 96 MG/DL (70-100); POTASSIUM SERUM 4.6 MEQ/L (3.5-5.1); SODIUM LEVEL 140 MEQ/L (136-145); TOTAL PROTEIN 7.5 GM/DL (6.4-8.2)
--- NOTE | 2019-07-10 16:00 | REP ---
BARIUM ENEMA SINGLE CONTRAST The procedure was performed under the direct supervision of Dr. Spencer. The images were reviewed with Dr. Spencer. The revenue stamp clerk film shows no organomegaly or pathological masses. The test gas pattern is nonspecific. There are bowel sutures noted in the pelvis consistent with the patient's history of colon resection. There is an ileostomy on the right. Liquid barium was instilled into the colon and retrograde flow. The colon is normal in position and contour. There is no evidence of stricture, obstruction or extravasation at the anastomosis. There is free flow of contrast to the cecum with reflux into the terminal ileum. There are no annular constricting lesions identified. There are no polypoid masses identified. There are mobile filling defects consistent with small stool particles from incomplete cleansing. Impression: At the anastomosis there is no evidence of stricture, obstruction or extravasation. There is free flow of contrast to the cecum with reflux into the terminal ileum. 0.6 minutes of fluoroscopy time was utilized for this procedure. Electronically Signed by FLORIN Wynn 07/10/2019 02:57 P Electronically Signed by Fredy Spencer MD 07/10/2019 03:51 P
== END ==
LOC: M RAD 08:33
PROVIDERS: ATTEND Surgery
DX: K57.32 Diverticulitis of large intestine without perforation or abscess without bleeding (principal); K56.609 Unspecified intestinal obstruction, unspecified as to partial versus complete obstruction; Z98.0 Intestinal bypass and anastomosis status; Z93.2 Ileostomy status

== ENCOUNTER → 2019-08-18 | Outpatient (CLI) | payer MEDICARE, OTHER ==
[~2019-08-18] MED LIST changes: -GASTROGRAFIN SOLUTION 30ML (Q9963) As Ordered ONE; -LACT10SO29 PO; +LACT20EL PO; -LIQUID POLIBAR PLUS 105% w/v 1900ML BTL As Ordered ONE
== END ==
LOC: M LABSMTC 09:31
PROVIDERS: ATTEND Anesthesiology
DX: Z01.818 Encounter for other preprocedural examination (principal); Z11.59 Encounter for screening for other viral diseases

== ENCOUNTER 2019-08-21 07:20 | Inpatient (IN) | payer MEDICARE, OTHER ==
--- NOTE | 2019-08-19 09:07 | CR ---
DATE OF CONSULTATION: 08/18/[address] Gordon for diagnostic laparoscopic ileostomy reversal surgery at [facility] on 08/21/2019. Dear Dr. Gordon: Thank you for asking me to do a preoperative consultation on Mrs. Danya Koenig who is as you know a 74-year-old female with a past medical history of hypothyroidism who has battled intermittent bowel obstruction over the last year until May 2019 when she ultimately was treated with surgical resection with colostomy and discharged to home on 05/26/2019. The patient reports full recovery since her May hospitalization. She initially was having nausea, but this has completely resolved. She is back to full activity. She had lost 15 pounds as a result of the bowel obstruction. She has regained five of the pounds and would like to maintain at this weight. The patient denies any fevers or chills, chest pain or shortness of breath. She is known hypothyroid and is compliant with her medications, known osteopenia and takes her calcium and D, has a history of hyperlipidemia which she manages with diet intervention, and vitamin D deficiency for which she takes a D supplement REVIEW OF SYSTEMS: Otherwise negative. PAST MEDICAL HISTORY: 1. Hypothyroid. 2. Infertility. 3. Bilateral [id number] with bilateral hearing aids. 4. Menopausal 1993. 5. Appendectomy 1945. 6. Left bunionectomy 1987. 7. Laparotomy 1973. 8. Mild hyperlipidemia. 9. Benign left breast biopsy 1998. 10. Osteopenia. 11. Skin cancer. 12. Acute on chronic diverticulitis with bowel obstruction requiring bowel resection and ileostomy May 2019. MEDICATIONS: - levothyroxine 100 mcg daily - metoclopramide p.r.n. - Zofran p.r.n. - Align 4 mg daily - baby aspirin is presently on hold - Viactiv three daily sporadically - vitamin D 1000 international units daily DRUG ALLERGIES: None. 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 Never smoked. One alcoholic beverage a day. FAMILY HISTORY: Father of Parkinson's at 84. Mother of old age at 91. Several siblings have diabetes and hypertension with one brother having heart disease and a carotid endarterectomy. PHYSICAL EXAMINATION: Thin female in no acute distress. Vital Signs: Weight 139 with a body mass index (BMI) of 24.6, blood pressure 128/70, heart rate of 78. HEENT Examination: Head is normocephalic. Neck is supple. Pupils equal, reactive to light. Extraocular movements are intact. The patient does wear eyeglasses. She does wear bilateral hearing aids. Lungs were clear to auscultation, resonant to percussion. Cardiovascular: Regular rate and rhythm. No murmur, rub or gallop. Breast Exam: Deferred. Abdomen: Normoactive bowel sounds, soft, nontender. Ileostomy appears healthy and functioning well. Extremities: No cyanosis, clubbing or edema. Some mild arthritic changes. Back: Dermatologic: No rashes, bruises or abnormal lesions. Neurologic: Alert and oriented. Cranial nerves II-XII intact. Reflexes symmetric and normal. LABORATORY DATA 07/10/2019 - Normal CBC, med profile, and liver panel with normal thyroid 05/17/2019. Last lipid panel being 09/29/2018 with a total cholesterol of 235, triglycerides 57, HDL 83, and LDL 141. Her last vitamin D level on 09/20/2017 and was 63.2. EKG on 08/18/2019 shows normal sinus rhythm, rate of 63, left axis deviation at -54, left anterior bill block, otherwise normal [place], QRS, QTC interval, normal R-wave progression, no atrial or ventricular hypertrophy, and no pathologic Q-waves IMPRESSION: Mrs. Danya Koenig is a 74-year-old female with cardiovascular risk factors positive only for age and family history who has no signs or symptoms indicative of cardiovascular ischemia and is felt to be optimized and at low risk for cardiovascular complications from proposed surgical intervention which can be further minimized by the following. 1. Hypothyroid. Take the levothyroxine with sip of water a.m. of surgery. 2. Hyperlipidemia, mild. Commended for healthy interventions. 3. Osteopenia. Hold calcium and D the a.m. of surgery/ 4. Vitamin D deficiency. Hold vitamin D a.m. of surgery. 5. Diverticulosis. Encourage high fiber diet. Thank you very much for this consultation. Please call with questions or concerns.
[2019-08-21] VITALS (8 sets, daily range): BP systolic 93–134; BP diastolic 57–68
[~2019-08-21] VITALS: Ht 160 cm; Wt 63.7 kg
[~2019-08-21 07:20] MED LIST changes: +LIDOCAINE 1% MDV 20ML VIAL SQ PRN; +LR 1,000 ML IV ONE; +cefoTEtan DISODIUM 2 GM in D5W MINI-BAG PLUS 50 ML IV ONE
[2019-08-21] MEDS ORDERED: fentaNYL 250 MCG/5 ML INJECTION (J3010) As Ordered ONE (09:01)
[2019-08-21] MEDS ORDERED: MIDAZOLAM INJ 2MG/2ML VIAL (J2250 PER 1MG) As Ordered ONE (09:01)
[2019-08-21] MEDS ORDERED: SUGAMMADEX SODIUM 500 MG/5 ML VIAL (BRIDION) As Ordered ONE (09:02)
[2019-08-21] MEDS ORDERED: propofoL 200 MG/20 ML VIAL As Ordered ONE (09:02)
[2019-08-21] MEDS ORDERED: ROCURONIUM BROMIDE 50 MG/5 ML VIAL As Ordered ONE (09:02)
[2019-08-21] MEDS ORDERED: ONDANSETRON 4MG/2ML VIAL As Ordered ONE (09:02)
[2019-08-21] MEDS ORDERED: ACETAMINOPHEN 1000MG 100ML IV BTL (OFIRMEV) (J0131 PER 10MG) As Ordered ONE (09:02)
[2019-08-21] MEDS ORDERED: LIDOCAINE 2% 100MG/5ML SDV (FOR ANES.) As Ordered ONE (09:02)
[2019-08-21] MEDS ORDERED: ePHEDrine SULFATE 25 MG/5 ML(5MG/ML) SYRINGE As Ordered ONE (09:02)
[2019-08-21] MEDS ORDERED: dexameTHASONE 4 MG/ML 1ML VIAL (J1100 PER 1MG) As Ordered ONE (09:02)
[2019-08-21] MEDS ORDERED: PHENYLephrine HCL 500 MCG/5 ML (100MCG/ML) SYRINGE (J2370) As Ordered ONE (09:02)
[2019-08-21] MEDS ORDERED: BUPIVACAINE HCL 0.25% 30ML VIAL As Ordered ONE (09:24)
[2019-08-21] MEDS ORDERED: LIDOCAINE 1% SDV 30ML VIAL As Ordered ONE (09:24)
[2019-08-21] MEDS ORDERED: HYDROmorphone HCL 2 MG/ML 1ML VIAL (J1170) As Ordered ONE (11:51)
[2019-08-21] MEDS ORDERED: PERCOCET 5MG/325MG TAB PO PRN (12:45)
[2019-08-21] MEDS ORDERED: ACETAMINOPHEN TAB 650MG DOSE (2X325MG) PO PRN (12:45)
[2019-08-21] MEDS ORDERED: fentaNYL 100 MCG/2 ML INJECTION (J3010) IV PRN (12:45)
[2019-08-21] MEDS ORDERED: LR 1,000 ML IV SCH (12:45)
[2019-08-21] MEDS ORDERED: oxyCODONE 5MG TAB PO PRN (12:45)
[2019-08-21] MEDS ORDERED: ONDANSETRON 4MG/2ML VIAL IV PRN (12:45)
[2019-08-21] MEDS: ONDANSETRON 4MG/2ML VIAL IV PRN ×2 (14:05→20:48)
[2019-08-21] MEDS: LR 1,000 ML IV SCH ×2 (14:13→20:48)
[2019-08-21] MEDS ORDERED: METOCLOPRAMIDE INJ 10MG/2ML VIAL (J2765 PER 1) IV PRN (15:15)
[2019-08-21] MEDS: KETOROLAC 30 MG/ML 1ML VIAL IV PRN (20:48)
[2019-08-21] MEDS: SENOKOT S TAB PO SCH (20:48)
[2019-08-21] MEDS: ALVIMOPAN 12 MG CAPSULE (ENTEREG) PO SCH (20:59)
[2019-08-22] VITALS (7 sets, daily range): BP systolic 94–119; BP diastolic 53–61
[2019-08-22] MEDS: KETOROLAC 30 MG/ML 1ML VIAL IV PRN ×2 (06:10→20:40)
[2019-08-22] MEDS: LEVOTHYROXINE 100MCG TABLET (0.1MG) PO SCH (06:10)
[2019-08-22 06:42] LABS: BASO % 0.2 % (0.0-1.0); EOS # 0.1 10^3/uL (0.0-0.5); EOS % 0.7 % (0.0-3.0); HEMATOCRIT 31.2 % (36.0-47.0); HEMOGLOBIN 9.9 g/dl (12.0-15.5); LYMPH # 1.2 10^3/uL (1.5-5.0); LYMPH % 12.3 % (24.0-44.0); MEAN CORPUSCULAR HEMOGLOBIN 27.7 pg (27.0-33.0); MEAN CORPUSCULAR HGB CONC 31.7 g/dl (32.0-36.5); MEAN CORPUSCULAR VOLUME 87.2 fl (80.0-96.0); MONO # 0.8 10^3/uL (0.0-0.8); MONO % 7.9 % (0.0-5.0); NEUTROPHILS # 7.7 10^3/uL (1.5-8.5); NEUTROPHILS % 78.6 % (36.0-66.0); PLATELET COUNT, AUTOMATED 314 10^3/uL (150-450); RED BLOOD COUNT 3.58 10^6/uL (4.00-5.40); WHITE BLOOD COUNT 9.8 10^3/uL (4.0-10.0)
[2019-08-22 07:09] LABS: BLOOD UREA NITROGEN 18 MG/DL (7-18); CALCIUM LEVEL 8.2 MG/DL (8.8-10.2); CARBON DIOXIDE LEVEL 25 MEQ/L (21-32); CHLORIDE LEVEL 107 MEQ/L (98-107); CREATININE FOR GFR 0.74 MG/DL (0.55-1.30); GLOMERULAR FILTRATION RATE > 60.0 (>39); GLUCOSE, FASTING 82 MG/DL (70-100); SODIUM LEVEL 138 MEQ/L (136-145)
--- NOTE | 2019-08-22 09:08 | ROOPDOC ---
[facility] Report Of Operation Report of Operation DATE OF PROCEDURE: 08/22/19 PREPROCEDURE DIAGNOSES: ileostomy status. POSTPROCEDURE DIAGNOSES: ileostomy status. PROCEDURE: Laparoscopic Lysis of Adhesions, Reversal of Ileostomy. SURGEON: Gerardo Gordon MD SURVEY ASSOCIATE ANESTHESIA: General Anesthesia. ESTIMATED BLOOD LOSS: Approximately 20 mL. COMPLICATIONS: none. REMARKS: 74 F had a history of colon obstruction s/p sigmoid colectomy and diverting ileostomy now presents for reversal of her ileostomy. PROCEDURE NOTE: . DESCRIPTION OF PROCEDURE: Patient received Cipro T10 2 grams IV preoperatively for wound prophylaxis. She was brought to the operating room, placed supine on the procedure table. Compression boots placed on both extremities were DVT prophylaxis. Gen. endotracheal anesthesia started. A Tucker catheter was placed for urine output monitoring. I sutured the ileostomy opening closed with a 3-0 silk. Her abdomen was then widely prepped with Betadine and sterile drapes were placed.We paused for a surgical timeout using both pre-incision safety checklist to verify correct patient, procedure site and additional clinical information prior to beginning the procedure. I gained entry into the abdomen using Veress technique at the left upper quadrant area. Intra-abdominal placement was confirmed with saline drop technique. CO2 insufflation started to pressure 15 mmHg. Using the same incision a 5 mm port was placed under direct vision laparoscope. The insertion site was inspected for injury and none was found. 2 other working ports were placed along the patient's supraumbilical area and one at the left lower quadrant area. On laparoscopy there were a few omental adhesions to the prior port sites and extraction site which was taken down with laparoscopic scissors connected to a monopolar cautery. There were also a few adhesions to the ileostomy loop and this was also divided. The defect in a for errant limbs of the ileostomy was identified. After sufficiently freed up the limbs of the ileostomy the abdomen was deflated. A circumferential skin incision was created around the rim of the ileostomy. With traction and countertraction the ileostomy was freed from the surrounding subcutaneous tissue circumferentially. The fascial tract was identified and likewise this was opened up and freed up to enter the abdomen placing some of the pneumoperitoneum. This was likewise freed up from the fascial attachments and the uterine limb which was closed off was identified and pulled out with the ileostomy. Both limbs were sufficiently extracted to gain some length out of the abdomen. They were aligned and I chose an area on the ileostomy was healthy and this was freshened up. Enterotomies were then created on both ends of the small bowel and the side to side anastomosis was fashioned off using a 75 mm stapler with a blue load. The staple line was inspected and no bleeding was apparent. The enterotomy including that of the end ileostomy was then transected with another firing of the 75 mm stapler with a blue load. Bleeding points were cauterized. The anastomosis was reinforced on several areas with interrupted 3-0 silk in Lembert fashion including the crotch of the anastomosis. The small mesenteric defect was closed off with 3-0 silk. This was then reintroduced back into the abdomen. The fascial defect was identified and this was closed off with mattress sutures using 1 Vicryl. I briefly resumed pneumoperitoneum and examined the day of the bowel anastomosis and likewise covered this with omentum. The fascial closure was also examined and noted to be airtight. The abdomen was deflated all ports removed the subcutaneous tract was closed off with interrupted 3-0 Vicryl and the skin was closed with interrupted 4-0 nylon's. The 3 port sites were closed with 4-0 Monocryl in subsequent fashion. Dermabondis covering for the port sites and the prior ileostomy closure site was covered with sterile gauze and Tegaderm. Sponge the awakened, extubated and brought to recovery room in stable condition. All counts of sponges and instruments were verify correct. GERARDO GORDON MD Aug 22, 2019 09:08
[2019-08-22] MEDS: SENOKOT S TAB PO SCH ×2 (09:34→20:39)
[2019-08-22] MEDS: ALVIMOPAN 12 MG CAPSULE (ENTEREG) PO SCH ×2 (09:34→20:39)
[2019-08-22] MEDS: VITAMIN D 1,000 INTERNATIONAL UNITS TABLET PO SCH (09:34)
[2019-08-22] MEDS: ASPIRIN 81 MG ENTERIC TAB PO SCH (09:34)
[2019-08-22] MEDS: ENOXAPARIN 40MG/0.4ML SYRINGE (J1650 PER 10MG) SC SCH (09:35)
[2019-08-23] MEDS: LEVOTHYROXINE 100MCG TABLET (0.1MG) PO SCH (05:53)
[2019-08-23] MEDS: KETOROLAC 30 MG/ML 1ML VIAL IV PRN (05:53)
[2019-08-23 06:00] VITALS: BP 118/66
[2019-08-23] MEDS: ASPIRIN 81 MG ENTERIC TAB PO SCH (08:35)
[2019-08-23] MEDS: ALVIMOPAN 12 MG CAPSULE (ENTEREG) PO SCH (08:35)
[2019-08-23] MEDS: VITAMIN D 1,000 INTERNATIONAL UNITS TABLET PO SCH (08:39)
[2019-08-23] MEDS: SENOKOT S TAB PO SCH (08:39)
[2019-08-23] MEDS: ENOXAPARIN 40MG/0.4ML SYRINGE (J1650 PER 10MG) SC SCH (08:40)
--- NOTE | 2019-08-23 08:52 | IPN ---
DATE: 08/22/2019 HISTORY: The patient is now postop day #1 from an ileostomy closure by Dr. Gordon. She had undergone a colon resection approximately 3 months earlier with a diverting ileostomy. She reports that she has done well since her surgery. She indicates that she has had some flatus this morning with a small bowel movement. She denies any nausea or vomiting. She has tolerated some clear liquids. Vital signs show that she has been afebrile over the past 24 hours. Pulses in the 60s to 70s and blood pressure is good. Intake and output show that yesterday she had 2000 in with 720 recorded out. She has had 750 mL of urine output today. PHYSICAL EXAMINATION: The patient is alert and appears comfortable. Heart exam shows a regular rhythm. She is not tachycardiac. The lungs are clear. The abdomen shows several small dressings and trocar site wounds. She has bowel sounds present. The abdomen is nondistended and soft. Laboratory studies today show white count of 10, hemoglobin 10, hematocrit 31, and a platelet count of 314,000. Differential count shows 79% neutrophils, 12% lymphocytes, and 8% monocytes. Chemistry shows normal electrolytes with BUN of 18, creatinine, creatinine 0.7, and a glucose of 82. IMPRESSION: The patient is doing very well postop day #1 from her ileostomy closure. She is tolerating liquids. She has had some flatus and a small bowel movement. The abdomen is nondistended and soft. PLAN: The patient will be advanced to a regular diet. I counseled her that she should try to progress slowly taking some soft foods and small bites of foods that sound good to her. I advised her to avoid any particularly fibrous foods and to chew well. We will see how she does today. Hopefully, she will be ready to go home within the next 1-2 days.
--- NOTE | 2019-08-24 06:35 | IPN ---
DATE: 08/23/2019 HISTORY: The patient is postoperative day #2 from closure of her diverting ileostomy. This had been created following a rectosigmoid resection for obstruction. She tolerated some clear liquids the night of surgery and was started on regular food yesterday. She reports that she has had several loose bowel movements as well as passage of flatus. She denies any significant abdominal pain other than a little soreness at the old ileostomy site. Vital signs show that she has been afebrile over the past 24 hours. Her pulse is in the 70s and 80s and her blood pressure is normal. Intake and output show that yesterday she had 1920 in, 1400 of which was oral, and she had 1000 mL of urine output recorded. She did have 5 bowel movements noted. PHYSICAL EXAMINATION: The patient is sitting up in the bed looking quite comfortable. She is alert and oriented. She denies any significant pain and has had no nausea or vomiting. Heart exam shows a regular rhythm. The lungs are clear. The abdomen is flat. She has several small trocar incisions that have Dermabond. The old ileostomy site is in the right upper quadrant. I changed the dressing and she has some permanent sutures in the skin with no evidence of infection or hematoma. She does have active bowel sounds present and the abdomen is nondistended. IMPRESSION: The patient is doing very well now 2 days postoperative from closure of her ileostomy. She had used only a dose of Toradol early this morning as far as pain medicine is concerned. PLAN: The patient will be discharged home today. She was counseled that she should avoid any strenuous physical activity or lifting more than about 25 pounds for the next month. She can resume her usual medications and take acetaminophen or ibuprofen as needed for discomfort. I advised her to apply a small dab of topical antibiotic ointment over her sutures at the ileostomy site daily until she has her sutures removed. She can shower anytime and just pat her incisions dry when done. I advised her to take a regular diet, but try to avoid particularly fibrous or hard foods for the first few days to a week until her bowels are functioning more normally. I advised her that she should expect to have persistent looser stools for a while, but that this will likely return toward what her previous normal was. I will not provide her with a prescription for any stronger pain medications as I do not believe she will need it. She will call the office if she has any problems and otherwise should followup routinely in about [address] Gordon.
--- NOTE | 2019-08-25 11:25 | DS.PDOC ---
Discharge Summary General Date of Admission Aug 21, 2019 at 07:20 Date of Discharge 08/23/2019 Attending Physician: MONROE BURGER MD Discharge Summary PROCEDURES PERFORMED DURING STAY: Laparoscopic lysis of adhesion, reversal of diverting ileostomy with side-to side entero-enteric anastomosis. ADMITTING DIAGNOSES: 1. Ileostomy status 2. History of colon obstruction secondary to chronic diverticulitis. DISCHARGE DIAGNOSES: 1. Ileostomy status s/p revrsal of ileostomy. 2. History of colon obstruction secondary to chronic diverticulitis. COMPLICATIONS/CHIEF COMPLAINT: Ileostomy Status, History Of Colon Obstruction. HISTORY OF PRESENT ILLNESS: Patient is brought in electively for reversal of her ileostomy. She had a prior history of colon obstruction the lacrimal the rectosigmoid junction for which she had sigmoid colon resection with a diverting ileostomy placed in March 2019. She has recovered from the surgery and is now ready for reversal of her ileostomy. HOSPITAL COURSE: Patient underwent reversal of her ileostomy in 07/22/2019. She tolerated her procedure well. She was subsequently admitted for postoperative monitoring. She was started on clear liquids. She started passing flatus overnight and had one small bowel movement and postop day 1. She remained hemodynamically stable and comfortable and she was advanced to regular diet. She had several small, loose bowel movements on postop day 1. She was ambulating the hallways. Her postoperative labs were normal. She was subsequently discharged at postop day 2. DISCHARGE MEDICATIONS: Please see below. ALLERGIES: Please see below. PHYSICAL EXAMINATION ON DISCHARGE: VITAL SIGNS: Please see below. Refer to examination by Dr. Cornejo's progress note on 08/23/2019 LABORATORY DATA: Please see below. IMAGING: None PROGNOSIS: Good ACTIVITY: Light activity 2 weeks. DIET: Regular diet as tolerated DISCHARGE PLAN: Patient is discharged home. Follow-up is arranged for 2 week follow-up DISPOSITION: 01 Home, Self-Care. DISCHARGE INSTRUCTIONS: 1. As above. ITEMS TO FOLLOWUP ON ON OUTPATIENT: 1. Bowel function status. DISCHARGE CONDITION: Stable. TIME SPENT ON DISCHARGE: Greater than 30 minutes. Vital Signs/I&Os Vital Signs Date Time Temp Pulse Resp B/P (MAP) Pulse Ox O2 Delivery O2 Flow Rate FiO2 08/23/19 06:00 97.2 74 16 118/66 (83) 94 Room Air 08/22/19 06:00 2.0 Microbiology Microbiology 08/21/19 Respiratory Virus Panel (PCR) ([facility]) - Final, Complete Discharge Medications Scheduled Aspirin (Aspirin EC) 81 Mg Tab, 81 MG PO DAILY, (Reported) Bifidobacterium Infantis (Align) 4 Mg Capsule, 4 MG PO DAILY, (Reported) Calcium Carb/Vitamin D3/Vit K1 (Viactiv 650 mg-12.5 Mcg Chew) 1 Each Tab.chew, 3 CHEW PO DAILY, (Reported) Cholecalciferol (Vitamin D3) (Vitamin D3) 1,000 Unit Tablet, 1,000 UNITS PO DAILY, (Reported) Levothyroxine Sodium (Levothyroxine Sodium) 100 Mcg Tab, 100 MCG PO DAILY, (Reported) Allergies Coded Allergies: No Known Allergies (Unverified , 05/23/17) MONROE BURGER MD Aug 25, 2019 11:25
== END 2019-08-23 12:02 | disposition home or self-care (01) | DRG 330 ==
LOC: M OR 07:20 → M MSPAV 13:45
PROVIDERS: ADMIT Surgery; ATTEND Surgery
PROC: 0DBB0ZZ Excision of Ileum, Open Approach (ICD-10-PCS; principal; 2019-08-22)
DX: Z43.2 Encounter for attention to ileostomy (principal); K57.92 Diverticulitis of intestine, part unspecified, without perforation or abscess without bleeding; Z11.59 Encounter for screening for other viral diseases; Z79.82 Long term (current) use of aspirin; Z79.899 Other long term (current) drug therapy; E55.9 Vitamin D deficiency, unspecified; E03.9 Hypothyroidism, unspecified; E78.5 Hyperlipidemia, unspecified

== ENCOUNTER → 2019-08-25 | Outpatient (CLI) | payer MEDICARE, OTHER ==
[~2019-08-25] MED LIST changes: +D31000TA2 PO; -LIDOCAINE 1% MDV 20ML VIAL SQ PRN; -LR 1,000 ML IV ONE; -VITAD1000T PO; -cefoTEtan DISODIUM 2 GM in D5W MINI-BAG PLUS 50 ML IV ONE
[2019-08-25 09:39] LABS: HEMATOCRIT 32.4 % (36.0-47.0); HEMOGLOBIN 10.2 g/dl (12.0-15.5); MEAN CORPUSCULAR HEMOGLOBIN 27.8 pg (27.0-33.0); MEAN CORPUSCULAR HGB CONC 31.5 g/dl (32.0-36.5); MEAN CORPUSCULAR VOLUME 88.3 fl (80.0-96.0); PLATELET COUNT, AUTOMATED 357 10^3/uL (150-450); RED BLOOD COUNT 3.67 10^6/uL (4.00-5.40); WHITE BLOOD COUNT 6.2 10^3/uL (4.0-10.0)
== END ==
LOC: M LAB 08:48
PROVIDERS: ATTEND Surgery
DX: K57.32 Diverticulitis of large intestine without perforation or abscess without bleeding (principal)

== ENCOUNTER → 2020-01-06 | Outpatient (CLI) | payer SELFPAY | LOC: M LABSMTC 14:38 | PROVIDERS: ATTEND Pediatrics | DX: Z20.828 Contact with and (suspected) exposure to other viral communicable diseases (principal) ==

== ENCOUNTER → 2020-01-18 | Outpatient (REF) | payer MEDICARE, OTHER | LOC: M LAB REF 10:53 | PROVIDERS: ATTEND Internal Medicine | DX: R20.2 Paresthesia of skin (principal) ==

== ENCOUNTER → 2020-01-20 | Outpatient (REF) | payer MEDICARE, OTHER | LOC: M LAB REF 17:04 | PROVIDERS: ATTEND Internal Medicine | DX: U07.1 COVID-19 (principal) ==

== ENCOUNTER → 2020-02-03 | Outpatient (REF) | payer MEDICARE, OTHER | LOC: M LAB REF 16:24 | PROVIDERS: ATTEND Internal Medicine | DX: Z20.828 Contact with and (suspected) exposure to other viral communicable diseases (principal) ==

== ENCOUNTER → 2020-04-05 | Outpatient (CLI) | payer MEDICARE, OTHER ==
--- NOTE | 2020-04-05 12:06 | REPMRS ---
Patient History The patient states she has not had a clinical breast exam in over a year. Family history of premenopausal breast cancer at age 50 or over in maternal grandmother, prostate cancer at age 50 or over in brother. Benign excisional biopsy of the left breast, 2018. Benign excisional biopsy of the left breast, 1999. No Hormone Replacement Therapy Digital Woman Screen Mammo: April 05, 2020 - Exam #: [id number] Bilateral CC and MLO view(s) were taken. Technologist: Radha Montgomery, Technologist Prior study comparison: April 01, 2019, bilateral digital woman screen mammo performed at [facility]. March 24, 2018, bilateral digital woman screen mammo performed at [facility]. March 15, 2017, digital woman screen mammo performed at [facility]. FINDINGS: There are scattered fibroglandular densities. The Volpara volumetric breast density category is:B. There has been no change in the appearance of the mammogram from the prior studies. There is a mild amount of scattered fibroglandular density which is fairly symmetric. There is no interval development of dominant mass, architectural distortion, or grouped microcalcification suggestive of malignancy. 3-D tomosynthesis shows no additional findings. Assessment: BI-RADS/ACR category 1 mammogram. Negative Mammogram. Recommendation Routine screening mammogram of both breasts in 1 year (for women over age 40). This patient's [facility] Lifetime Breast Cancer Risk is estimated at 6.0 %. This mammogram was interpreted with the aid of an FDA-approved computer-aided dectection system. Electronically Signed By: Anuj Nichols MD 04/05/20 [id number]
== END ==
LOC: M WHC 09:34
PROVIDERS: ATTEND Internal Medicine
DX: Z12.31 Encounter for screening mammogram for malignant neoplasm of breast (principal); Z80.3 Family history of malignant neoplasm of breast; Z80.42 Family history of malignant neoplasm of prostate

== ENCOUNTER → 2020-10-28 | Outpatient (CLI) | payer MEDICARE, OTHER | LOC: M LABSMTC 10:39 | PROVIDERS: ATTEND Anesthesiology | DX: Z01.812 Encounter for preprocedural laboratory examination (principal); Z20.822 Contact with and (suspected) exposure to COVID-19 ==

== ENCOUNTER 2020-11-02 09:55 | Day surgery (SDC) | payer MEDICARE, OTHER ==
[~2020-11-02] VITALS: Ht 162.6 cm; Wt 66.2 kg
[~2020-11-02 09:55] MED LIST changes: +NS 1,000 ML IV ONE
[2020-11-02] MEDS ORDERED: LIDOCAINE 2% 100MG/5ML SDV (FOR ANES.) As Ordered ONE (11:52)
[2020-11-02] MEDS ORDERED: propofoL 200 MG/20 ML VIAL As Ordered ONE (11:53)
--- NOTE | 2020-11-02 12:44 | ROOR ---
Patient Name: Danya Koenig Procedure Date: 11/02/2020 12:21 PM Date of : 1945 Age: 75 [facility] Gender: Female Note Status: Finalized Procedure: Colonoscopy Indications: Follow-up of diverticulitis Providers: Gerardo Gordon MD Referring MD: Teodora CHONG MD Requesting Provider: Medicines: Monitored Anesthesia Care Complications: No immediate complications. Procedure: Pre-Anesthesia Assessment: - Prior to the procedure, a History and Physical was performed, and patient medications and allergies were reviewed. The patient is competent. The risks and benefits of the procedure and the sedation options and risks were discussed with the patient. All questions were answered and informed consent was obtained. Patient identification and proposed procedure were verified by the physician, the nurse and the mail reader in the endoscopy suite. Mental Status Examination: alert and oriented. Airway Examination: normal oropharyngeal airway and neck mobility. Respiratory Examination: clear to auscultation. CV Examination: normal. Prophylactic Antibiotics: The patient does not require prophylactic antibiotics. Prior Anticoagulants: The patient has taken no previous anticoagulant or antiplatelet agents. ASA Grade Assessment: II - A patient with mild systemic disease. After reviewing the risks and benefits, the patient was deemed in satisfactory condition to undergo the procedure. The anesthesia plan was to use monitored anesthesia care (MAC). Immediately prior to administration of medications, the patient was re-assessed for adequacy to receive sedatives. The heart rate, respiratory rate, oxygen saturations, blood pressure, adequacy of pulmonary ventilation, and response to care were monitored throughout the procedure. The physical status of the patient was re-assessed after the procedure. The Colonoscope was introduced through the anus and advanced to the cecum, identified by appendiceal orifice and ileocecal valve. The colonoscopy was performed without difficulty. The patient tolerated the procedure well. The quality of the bowel preparation was excellent. Findings: Hemorrhoids were found on perianal exam. There was evidence of a prior end-to-end colo-rectal anastomosis in the rectum. This was patent and was characterized by healthy appearing mucosa. The anastomosis was traversed. The entire examined colon appeared normal. minimal left over small diverticulosis at the descending colon. No polyps found The retroflexed view of the distal rectum and anal verge was normal and showed no anal or rectal abnormalities. Impression: - Hemorrhoids found on perianal exam. - Patent end-to-end colo-rectal anastomosis, characterized by healthy appearing mucosa. - The entire examined colon is normal. - The distal rectum and anal verge are normal on retroflexion view. - No specimens collected. Recommendation: - Discharge patient to home (ambulatory). - High fiber diet indefinitely. - Repeat colonoscopy in 10 years for screening purposes. Procedure Code(s): --- Professional --- 74072, Colonoscopy, flexible; diagnostic, including collection of specimen(s) by brushing or washing, when performed (separate procedure) Diagnosis Code(s): --- Professional --- K64.9, Unspecified hemorrhoids Z98.0, Intestinal bypass and anastomosis status K57.32, Diverticulitis of large intestine without perforation or abscess without bleeding CPT copyright 2019 [employer]. All rights reserved. The codes documented in this report are preliminary and upon cigar binder review may be revised to meet current compliance requirements. Gerardo Gordon MD Gerardo Gordon MD 11/02/2020 12:44:43 PM Electronically signed by Gerardo Gordon MD Number of Addenda: 0 Note Initiated On: 11/02/2020 12:21 PM Estimated Blood Loss: Estimated blood loss: none.
[2020-11-02 13:00] VITALS: BP 137/81
== END 2020-11-02 13:10 | disposition home or self-care (01) ==
LOC: M OPP 09:55
PROVIDERS: ATTEND Surgery
DX: K57.32 Diverticulitis of large intestine without perforation or abscess without bleeding (principal); K64.8 Other hemorrhoids; Z98.0 Intestinal bypass and anastomosis status; Z79.899 Other long term (current) drug therapy

== ENCOUNTER → 2021-04-11 | Outpatient (CLI) | payer MEDICARE, OTHER ==
[~2021-04-11] MED LIST changes: -D31000TA2 PO; -NS 1,000 ML IV ONE; +VITA100093 PO
== END ==
LOC: M WHC 09:29
PROVIDERS: ATTEND Internal Medicine
DX: Z12.31 Encounter for screening mammogram for malignant neoplasm of breast (principal); M85.851 Other specified disorders of bone density and structure, right thigh; M85.852 Other specified disorders of bone density and structure, left thigh

== ENCOUNTER → 2022-03-07 | Outpatient (CLI) | payer MEDICARE, OTHER | LOC: M PLAIMG 09:22 | PROVIDERS: ATTEND Internal Medicine | DX: R05.9 Cough, unspecified (principal); I70.0 Atherosclerosis of aorta ==

== ENCOUNTER → 2022-04-12 | Outpatient (CLI) | payer MEDICARE, OTHER | LOC: M WHC 10:20 | PROVIDERS: ATTEND Internal Medicine | DX: Z12.31 Encounter for screening mammogram for malignant neoplasm of breast (principal) ==

== ENCOUNTER → 2023-04-16 | Outpatient (CLI) | payer MEDICARE, OTHER | LOC: M WHC 08:52 | PROVIDERS: ATTEND Internal Medicine | DX: Z12.31 Encounter for screening mammogram for malignant neoplasm of breast (principal); M85.88 Other specified disorders of bone density and structure, other site; R92.323 Mammographic fibroglandular density, bilateral breasts ==

== ENCOUNTER → 2024-06-11 | Outpatient (CLI) | payer MEDICARE, OTHER ==
[~2024-06-11] MED LIST changes: -ALIG4CAP PO; +ALIG4CAP3 PO
== END ==
LOC: M WUC 15:43
PROVIDERS: ATTEND Internal Medicine
DX: M19.011 Primary osteoarthritis, right shoulder (principal); M47.892 Other spondylosis, cervical region; M79.621 Pain in right upper arm; M79.659 Pain in unspecified thigh